=== PATIENT | female | born 1955 | race Caucasian/White ===

== ENCOUNTER 2023-05-13 13:33 | Outpatient (OUT) | payer MEDICARE, SELFPAY ==
--- NOTE | 2023-05-13 13:36 | MM_ITS ---
Patient Name: LUIS CLEVELAND MR#: [id number] : 1955 Exam Date: 05/13/2023 Ordering Doctor: DR Ton Wheeler . RADIOLOGY REPORT PROCEDURE: MM TOMOSYNTHESIS SCREENING BI COMPARISON: MG MAMM SCREEN 3D KANE CAD, 05/07/2022. MG MAMM SCREEN 3D KANE CAD, 03/17/2021. MG MAMM SCREEN KANE W CAD, 11/12/2019. MG MAMM KANE SCRN W CAD DIG, 01/15/2013. INDICATIONS: screening Calculator Name NCI Breast Cancer Risk Assessment Tool 5 Year Breast Cancer Risk 1.60% Lifetime Breast Cancer Risk 5.90% Personal Breast Cancer No Personal Ovarian Cancer No Treatments None Family Cancers Mother with bladder cancer at age 83; Uncle-maternal with hodgkins cancer at age 28. LOCATION: [facility] BREAST COMPOSITION: Scattered areas fibroglandular density. FINDINGS: DIAGNOSTIC CATEGORY 2--BENIGN FINDING: RIGHT BREAST: No significant suspicious finding. Scattered benign-appearing calcifications are present. No significant change has occurred. LEFT BREAST: No significant suspicious finding. Scattered benign-appearing calcifications are present. No significant change has occurred. RECOMMENDATIONS: ROUTINE MAMMOGRAM AND CLINICAL EVALUATION IN 12 MONTHS. PLEASE NOTE: A NORMAL MAMMOGRAM DOES NOT EXCLUDE THE POSSIBILITY OF BREAST CANCER. A CLINICALLY SUSPICIOUS PALPABLE LUMP SHOULD BE BIOPSIED. Dictated by: Nci Khan M.D. on 05/13/2023 at 14:23 Approved by: Nic Khan M.D. on 05/13/2023 at 14:28
== END 2023-05-13 13:34 | disposition home or self-care (01) ==
LOC: MAMMO 13:33
PROVIDERS: PCP Internal Medicine; Visit Provider Obstetrics & Gynecology
DX: Z12.31 Encounter for screening mammogram for malignant neoplasm of breast (principal); Z80.52 Family history of malignant neoplasm of bladder; Z80.7 Family history of other malignant neoplasms of lymphoid, hematopoietic and related tissues
CPT/HCPCS: 77063; 77067

== ENCOUNTER 2023-08-29 21:04 | Outpatient (REF) | payer MEDICARE, SELFPAY ==
--- OUTSIDE RECORDS SUMMARY | 2023-08-29 21:08 | XMS_ITS | CCD ---
Author Organization [facility] Care Team Providers Care Head Swamper Name Role Phone KINJAL TRAN (MIKY) Unavailable Unavaila ble KINJAL TRAN (MIKY) Unavailable Unavaila ble Unlisted, Physician Attending Unavailable Unlisted, Physician Admitting Unavailable NELLA FINE, MD TELLO LYONS Consulting Unav ailable NELLA FINE, MD TELLO LYONS Primary Care Unav ailable Ashutosh Juarez Unavailable Ashutosh Juarez Attending Unavailable Ashutosh Juarez Admitting Unavailable Tello Triplett Primary Care Unavailable Ashutosh Juarez Attending Unavailable Ashutosh Juarez Admitting Unavailable Tello Triplett Primary Care Unavailable Tello Triplett Primary Care Unavailable Ashutosh Juarez Admitting Unavailable Ashutosh Juarez Attending Unavailable SABRA, Rick Restrepo Attending Unavailable NILRick Claire Attending Unavailable Jerrod RUBI Referring Unavailable HEMMER, DR ISABELLE Ba Admitting Unavailable HEMMER, DR ISABELLE Ba Attending Unavailable NELLA, DR LOPEZ Primary Care Unavailable OLIEBKELLY, DR DARLYN Restrepo Consulting Unavailable HEMMER, DR ISABELLE Ba Consulting Unavailable KARASIK ., DR ELDER Admitting Unavailabl e KARASIK ., DR ELDER Consulting Unavailabl e KARASIK ., DR ELDER Attending Unavailabl e NELLA, DR LOPEZ Primary Care Unavailable Juno Whatley Consulting Unavailable ZIEBKELLY, DR DARLYN Restrepo Consulting Unavailable NELLA, DR LOPEZ Admitting Unavailable NELLA, DR LOPEZ Primary Care Unavailable NELLA, DR LOPEZ Consulting Unavailable NELLA, DR LOPEZ Attending Unavailable ZIEBKELLY, DR DARLYN Restrepo Consulting Unavailable KARASIKaela ., DR ELDER Admitting Unavailabl e KARASIK ., DR ELDER Consulting Unavailabl e KARASIK ., DR ELDER Attending Unavailabl e NELLA, DR LEEEL Primary Care Unavailable Tello Triplett MD Primary Care Provider Tello Triplett MD Unavailable TELLO TRIPLETT Attending Unavailable SURESH JAIMES Attending Unavailable TELLO TRIPLETT Attending Unavailable SURESH JAIMES Attending Unavailable TELLO TRIPLETT Attending Unavailable Medications Current Medications Medication Drug Class(es) Dates Sig (Normalized) Sig (Original) acetaminophen 325 mg / HYDROcodone bitartrate 10 mg oral tablet (10 sources) Opioid Agonist Start: 05-11-2023 End: 05-26-2023 take 1 tablet by mouth every six hours for pain HYDROcodone-acetami nophen (Bulan) 10-325 MG tablet Indications: Lumbar disc disease with radiculopathy Take 1 tablet by mouth every 6 (six) hours if needed for severe pain for up to 15 days 60 tablet 0 05/11/2023 05/26/2023 Active HYDROcodone-Acet aminophen 5-325 MG (Schedule II Drug) (Prior Auth#:[id number]) Oral for 7 Active alendronic acid 35 mg oral tablet (5 sources) Bisphosphonate Start: 04-08-2023 alendronate (F osamax) 35 MG tablet Indications: Asymptomatic menopausal state Take one pill weekly 4 tablet 3 04/08/2023 Active atorvastatin 20 mg oral tablet (5 sources) HMG-CoA Reductase Inhibitor Start: 12-20-2022 atorvastatin (Lipito r) 20 MG tablet Indications: Mixed hyperlipidemia (CMS/HCC) TAKE 1 TABLET DAILY 90 tablet 3 12/20/2022 Active FLUoxetine 20 mg oral capsule (11 sources) Serotonin Reuptake Inhibitor Start: 12-20-2022 FLUoxetine (PROzac) 20 MG capsule Indications: Major depressive disorder with current active episode, unspecified depression episode severity, unspecified whether recurrent (CMS/HCC) TAKE 2 CAPSULES DAILY 180 capsule 3 12/20/2022 Active FLUoxetine HCl 2 0 MG (Prior Auth#:[id number]) Oral for 90 Active ketoconazole 200 mg oral tablet (6 sources) Azole Antifungal take 1 tablet by mouth every twenty-four hours Ketoconazole 200 MG 1 tablet Orally Once a day Active nitroglycerin 0.4 mg sublingual tablet (11 sources) Nitrate Vasodilator Start: 020 nitroglycerin (Nitrostat) 0.[address] 0.4 mg under the tongue every 5 (five) minutes if needed for chest pain. 0 05/23/2019 Active Nitroglycerin 0. 4 MG as directed Sublingual Not-Taking pantoprazole 40 mg delayed release oral tablet (11 sources) Proton Pump Inhibitor Start: 09-01-2022 pantoprazole (ProtoNix) 40 MG EC tablet Indications: Abnormal intestinal absorption (CMS/HCC) TAKE 1 TABLET DAILY 90 tablet 3 09/01/2022 Active Pantoprazole Sod ium 40 MG (Prior Auth#:[id number]) Oral for 90 Active potassium chloride 10 meq extended release oral tablet (11 sources) take 1 tablet by mouth in the morning potassium chloride CR (Klor-Con) 10 MEQ ER tablet Take 10 mEq by mouth in the morning and 10 mEq before bedtime. 0 Active tiZANidine 4 mg oral tablet (5 sources) Central alpha-2 Adrenergic Agonist Start: take 1 tablet by mouth in the morning tiZANidine (Zanaflex) 4 MG tablet Take 4 mg by mouth in the morning and 4 mg before bedtime. 0 01/12/2022 Active topiramate 50 mg oral tablet (5 sources) Start: topiramate 50 MG tablet Indications: Benign essential hypertension (CMS/HCC) TAKE 1 TABLET TWICE A DAY 180 tablet 3 02/14/2023 Active Problems Active Problems Problem Classification Problem Date Documented Da te Episodic/Chronic Anxiety disorders (5 sources) Generalized anxiety disorder; Translations: [Generalized anxiety disorder] Onset: 11-02-2022 11-02-2022 Chronic Diabetes mellitus without complication (5 sources) Type 2 diabetes mellitus without complication; Translations: [Type 2 diabetes mellitus without complications] Onset: 02-07-2023 02-07-2023 Chronic Disorders of lipid metabolism (10 sources) Mixed hyperlipidemia; Translations: [Mixed hyperlipidemia] Onset: 11-02-2022 Resolved: 02-07-2023 11-02-2022 Chronic Diverticulosis and diverticulitis (5 sources) Diverticulum of large intestine without hemorrhage; Translations: [Diverticulosis of large intestine without perforation or abscess without bleeding] Onset: 11-02-2022 11-02-2022 Chronic Essential hypertension (7 sources) Benign essential hypertension; Translations: [Essential (primary) hypertension] Onset: 11-02-2022 3 Chronic Genitourinary symptoms and ill-defined conditions (5 sources) Urge incontinence of urine; Translations: [Urge incontinence] Onset: 11-02-2022 11-02-2022 Chronic Osteoarthritis (10 sources) Arthritis; Translations: [Unspecified osteoarthritis, unspecified site] Onset: 11-02-2022 11-02-2022 Chronic Other acquired deformities (6 sources) Lumbar spondylolisthesis; Translations: [Spondylolisthesis, lumbar region] Episodic Other bone disease and musculoskeletal deformities (1 source) Other specified disorders of bone density and structure, unspecified site; Translations: [OTH D/O BONE DEN STRUCT UNS SITE] Onset: 05-14-2022 Episodic Other connective tissue disease (2 sources) Tendinitis of right rotator cuff; Translations: [Other shoulder lesions, right shoulder] 05-12-2023 Episodic Other ear and sense organ disorders (5 sources) Otitis externa; Translations: [Unspecified otitis externa, unspecified ear] Onset: 11-02-2022 11-02-2022 Chronic Other gastrointestinal disorders (5 sources) Abnormal intestinal absorption; Translations: [Intestinal malabsorption, unspecified] Onset: 09-01-2022 09-01-2022 Chronic Other lower respiratory disease (4 sources) Pleurodynia; Translations: [PLEURODYNIA] Onset: 08-04-2022 Episodic Other nervous system disorders (5 sources) Chronic pain; Translations: [Other chronic pain] Onset: 11-02-2022 11-02-2022 Chronic Other nutritional; endocrine; and metabolic disorders (5 sources) Morbid obesity; Translations: [Morbid (severe) obesity due to excess calories] Onset: 11-02-2022 11-02-2022 Chronic Other upper respiratory infections (5 sources) Sinusitis; Translations: [Chronic sinusitis, unspecified] Onset: 11-02-2022 11-02-2022 Chronic Residual codes; unclassified (5 sources) Obstructive sleep apnea syndrome; Translations: [Obstructive sleep apnea (adult) (pediatric)] Onset: 11-02-2022 11-02-2022 Chronic Residual codes; unclassified (5 sources) Asymptomatic menopausal state; Translations: [ASYMPTOMATIC MENOPAUSAL STATE] Onset: 04-10-2021 Resolved: 04-10-2021 Episodic Residual codes; unclassified (1 source) Family history of other malignant neoplasms of lymphoid, hematopoietic and related tissues; Translations: [FAM HX OTH MAL LEONIDAS LYMPH HEMATPOETC] Onset: 05-14-2022 Episodic Residual codes; unclassified (1 source) Family history of malignant neoplasm of bladder; Translations: [FAM HX MALIGNANT NEOPLASM BLADDER] Onset: 05-14-2022 Episodic Spondylosis; intervertebral disc disorders; other back problems (7 sources) Degeneration of lumbosacral intervertebral disc; Translations: [Other intervertebral disc degeneration, lumbosacral region] Onset: 11-02-2022 11-02-2022 Chronic Spondylosis; intervertebral disc disorders; other back problems (12 sources) Spinal stenosis, lumbar region with neurogenic claudication; Translations: [Lumbar disc prolapse with radiculopathy] Onset: 05-14-2021 Resolved: 09-08-2021 Episodic Unclassified (1 source) Unknown / UNK(Unknown) Onset: 01-14-2017 Unclassified (1 source) M48.062 - Spinal stenosis, lumbar region with neurogenic claudication; Translations: [M48.062 - Spinal stenosis, lumbar region with neurogenic claudication] Onset: 06-08-2021 Unclassified (1 source) M54.50 - Low back pain, unspecified; Translations: [M54.50 - Low back pain, unspecified] Onset: 06-08-2021 Unclassified (1 source) Z01.812 - Encounter for preprocedural laboratory examination; Translations: [Z01.812 - Encounter for preprocedural laboratory examination] Onset: 06-04-2021 Viral infection (4 sources) COVID-19; Translations: [COVID-19] Onset: 01-12-2022 Past or Other Problems Problem Classification Problem Date Documented Da te Episodic/Chronic Benign neoplasm of uterus (5 sources) Uterine leiomyoma; Translations: [Leiomyoma of uterus, unspecified] Onset: 11-02-2022 11-02-2022 Episodic Diabetes mellitus without complication (5 sources) Prediabetes; Translations: [Prediabetes] Onset: 11-02-2022 Resolved: 02-07-2023 02-07-2023 Episodic Fluid and electrolyte disorders (5 sources) Hypokalemia; Translations: [Hypokalemia] Onset: 11-02-2022 11-02-2022 Episodic Genitourinary symptoms and ill-defined conditions (10 sources) Brooke hematuria; Translations: [Gross hematuria] Onset: 11-02-2022 11-02-2022 Episodic Immunizations and screening for infectious disease (1 source) Encounter for screening for human papillomavirus (HPV); Translations: [ENC SCREENING HUMAN PAPILLOMAVIRUS] Onset: 04-21-2022 Episodic Mycoses (5 sources) Pityriasis versicolor; Translations: [Pityriasis versicolor] Onset: 11-02-2022 11-02-2022 Episodic Nonspecific chest pain (1 source) Other chest pain; Translations: [OTHER CHEST PAIN] Onset: 01-15-2022 Episodic Other acquired deformities (3 sources) Spondylolisthesis, lumbar region; Translations: [M43.16 - Spondylolisthesis, lumbar region] Onset: 04-10-2021 Resolved: 05-14-2021 Episodic Other gastrointestinal disorders (5 sources) Disorder of abdomen; Translations: [Peritoneal adhesions (postprocedural) (postinfection)] Onset: 11-02-2022 11-02-2022 Episodic Other nervous system disorders (5 sources) Cerebrospinal fluid leak; Translations: [CSF leak] Onset: 11-02-2022 11-02-2022 Episodic Other screening for suspected conditions (not mental disorders or infectious disease) (11 sources) Encounter for screening for osteoporosis; Translations: [Encounter for screening mammogram for malignant neoplasm of breast] Onset: 04-19-2022 Episodic Other upper respiratory disease (5 sources) Perforation of nasal septum; Translations: [Other specified disorders of nose and nasal sinuses] Onset: 11-02-2022 11-02-2022 Episodic Results Test Name Value Interpretation Reference Range Facility XR RIBS RT PA Alberto 3 XR RIBS RT PA CH EXAMINATION: XR RIBS RT PA CH HISTORY: Pleuritic pain ; lower anterior lateral right rib pain for 2 weeks; no known injury COMPARISON: XR chest 01/12/2022 6 FINDINGS: LUNGS: No significant pulmonary parenchymal abnormalities. PLEURA: No pneumothorax, effusion, or pleural thickening. MEDIASTINUM: No visible mass or adenopathy. CARDIAC: No cardiomegaly or cardiac silhouette abnormality. RIBS: Normal. No significant arthropathy or acute abnormality. OTHER: Negative. IMPRESSION: 1. No acute cardiopulmonary process 2. No appreciable rib abnormality. Electronically authenticated by: DARLYN CLEMONS Date: 2022-08-05 07:20 Normal [facility] Physician Referralon 023 Physician Referral [phone] [id number] D:127 Normal [facility] MG MAMM SCREEN 3D KANE CADon 05-07-2022 MG MAMM SCREEN 3D KANE CAD Patient: LUIS BLOCK Exam Date: 05/07/2022 : 1955 Gender:F Ordering : DR JERROD RUBI . Admission #: [id number] Family : Order #: [id number] CLICK HERE TO VIEW EXAM RADIOLOGY REPORT PROCEDURE: MAMMOGRAM SCREENING 3D BILATERAL CAD COMPARISON: MG MAMM SCREEN 3D KANE CAD, 03/17/2021. INDICATIONS: Screening mammography Calculator Name NCI Breast Cancer Risk Assessment Tool 5 Year Breast Cancer Risk 1.60% Lifetime Breast Cancer Risk 6.20% Personal Breast Cancer No Personal Ovarian Cancer No Treatments None Family Cancers Mother with bladder cancer at age 83; Uncle-maternal with hodgkins cancer at age 28. LOCATION: [facility] BREAST COMPOSITION: Scattered areas fibroglandular density. FINDINGS: DIAGNOSTIC CATEGORY 2--BENIGN FINDING. NO CHANGE FROM COMPARISON. Scattered benign-appearing calcifications are present. Scattered benign-appearing lymph nodes are present. RIGHT BREAST: No significant suspicious finding. LEFT BREAST: No significant suspicious finding. RECOMMENDATIONS: ROUTINE MAMMOGRAM AND CLINICAL EVALUATION IN 12 MONTHS. PLEASE NOTE: A NORMAL MAMMOGRAM DOES NOT EXCLUDE THE POSSIBILITY OF BREAST CANCER. A CLINICALLY SUSPICIOUS PALPABLE LUMP SHOULD BE BIOPSIED. Dictated by: Juno Whatley MD on 05/10/2022 at 07:42 Approved by: Juno Whatley MD on 05/10/2022 at 07:44 Normal [facility] XR DEXA BONE DENSITYon 05-07 XR DEXA BONE DENSITY EXAMINATION: XR DEXA BONE DENSITY, 05/07/2022 1:02 PM EST HISTORY: Screening for osteoporosis COMPARISON: DEXA bone densitometry 12/21/2019 TECHNIQUE: Dual-energy X-ray absorptiometry (DEXA) bone density study performed for the axial skeleton. FINDINGS: SPINE ANALYSIS: Average bone mineral density is 1.422 g/cm2. T-score (standard deviation relative to young adult mean): 1.8 . -2.3% change since prior study. HIP ANALYSIS: Lowest bone mineral density is within the right femoral neck, 0.810 g/cm2. T-score (standard deviation relative to young adult mean): -1.6 . -3.7% change since prior study. IMPRESSION: [employer] Classification: Osteopenia - Moderate Fracture Risk Electronically authenticated by: DARLYN CLEMONS Date: 2022-05-07 13:56 Normal [facility] PAP ACOG PANEL 2: 30 to 65on 04-23-2022 . . Normal [facility] Comment on above: Result Comment: Perf ormed at: WB Performed By: #### [id number] #### [facility] [address] [address] [address] May Syed Age Gdln ACOG Testing 30-65 [facility] Comment on above: Performed By: #### [id number] #### [facility] [address] [address] [address] May Syed DIAGNOSIS: Comment Normal [facility] Comment on above: Result Comment: NEGA TIVE FOR INTRAEPITHELIAL LESION OR MALIGNANCY. CELLULAR CHANGES ASSOCIATED WITH ATROPHY ARE PRESENT. Performed at: WB Performed By: #### [id number] #### [facility] [address] [address] [address] May Syed HPV Aptima Negative Normal Negative [facility] Comment on above: Result Comment: This nucleic acid amplification test detects fourteen high-risk HPV types (16,18,31,33,35,39,45,51,52,56,58,59,66,68) without differentiation. Performed at: =G Performed By: #### 4 [id number] #### [facility] [address] [address] [address] May Syed HPV Genotype Reflex Comment Normal [facility] Comment on above: Result Comment: Crit eria not met, HPV Genotype not performed. Performed at: WB Performed By: #### [id number] #### [facility] [address] [address] [address] May Syed Methodology: Comment Normal [facility] Comment on above: Result Comment: This liquid based ThinPrep(R) pap test was screened with the use of an image guided system. Performed at: WB Performed By: #### [id number] #### [facility] [address] [place] [address] Dr. May Syed Note: Comment Normal [facility] Comment on above: Result Comment: The Pap smear is a screening test designed to aid in the detection of premalignant and malignant conditions of the uterine cervix. It is not a diagnostic procedure and should not be used as the sole means of detecting cervical cancer. Both false-positive and false-negative reports do occur. . Performed at: WB Performed By: #### [id number] #### [facility] [address] [address] [address] May Syed Performed by: Comment Normal [facility] Comment on above: Result Comment: Aniyah Monk, Drying Can Worker (ASCP) Performed at: WB Performed By: #### 4 [id number] #### [facility] [address] [place] [address] Dr. May Syed Specimen adequacy: Comment Normal [facility] Comment on above: Result Comment: Sati sfactory for evaluation. Endocervical component may not be distinguished in cases of atrophy. Performed at: WB Performed By: #### [id number] #### [facility] [address] [place] [address] Dr. May Syed Physician Referralon 023 Physician Referral [phone] [id number] D:127 Normal [facility] Glucose Poct Glucometerson 0 06-09-2021 Commemt1 Glu2: Cleaned Meter Normal [facility] Comment on above: Result Comment: PERF ORMED BY: [facility] [address] [place] [address] PATHOLOGIST SPORTS COMPLEX ATTENDANT MARCUS VILLALOBOS M.D. Performed By: #### G LULS #### Point of Care testing , Glucose [Mass/Vol] 154 mg/dL Normal [facility] Comment on above: Result Comment: [place] om Glucose Reference Range is dependent on time and content of last meal. Glucose of more than 200 mg/dL in a nonstressed, ambulatory subject supports the diagnosis of Diabetes Mellitus. Performed By: #### G LULS #### Point of Care testing , Glucose [Mass/Vol] 135 mg/dL Normal [facility] Comment on above: Result Comment: [place] om Glucose Reference Range is dependent on time and content of last meal. Glucose of more than 200 mg/dL in a nonstressed, ambulatory subject supports the diagnosis of Diabetes Mellitus. PERFORMED BY: [address] [place] [address] PATHOLOGIST SPORTS COMPLEX ATTENDANT MARCUS VILLALOBOS M.D. Performed By: #### G CODIE #### Point of Care testing , Glucose Poct Glucometerson 0 06-08-2021 Glucose [Mass/Vol] 150 mg/dL Normal [facility] Comment on above: Result Comment: [place] om Glucose Reference Range is dependent on time and content of last meal. Glucose of more than 200 mg/dL in a nonstressed, ambulatory subject supports the diagnosis of Diabetes Mellitus. PERFORMED BY: [address] [place] [address] PATHOLOGIST SPORTS COMPLEX ATTENDANT MARCUS VILLALOBOS M.D. Performed By: #### G CODIE #### Point of Care testing , Glucose [Mass/Vol] 152 mg/dL Normal [facility] Comment on above: Result Comment: [place] om Glucose Reference Range is dependent on time and content of last meal. Glucose of more than 200 mg/dL in a nonstressed, ambulatory subject supports the diagnosis of Diabetes Mellitus. PERFORMED BY: [address] [place] [address] PATHOLOGIST SPORTS COMPLEX ATTENDANT MARCUS VILLALOBOS M.D. Performed By: #### G LULS #### Point of Care testing , Cezar 06-08-2021 L --- Specimen: [id number] Received: 06/08/21 Status: CANDICE Berry Num: [id number] Spec Type: Surgical Subm Dr: Ashutosh Juarez MD Tissues: A Disc - Intervertebral/Lumbar/C ervical (LUMBAR) Procedures: HE Stain, Gross/Micro L3 Patient Age/Sex Location Account Attending Physician Luis Block 65/F 4N [id number] Ashutosh Juarez MD SPEC NUM: [id number] RECD: 06/08/21 STATUS: CANDICE BERRY NUM: [id number] ELMO: 06/08/21- DR: Ashutosh Juarez MD ENTERED: 06/08/[address] [facility] DR: OLMAN TYPE: Surgical DEPT: S ORDERED: HE Stain, Gross/Micro L3 ORDERED: HE Stain, Gross/Micro L3 Pathological Diagnosis Lumbar disc, L2-L3, discectomy: - Fragments of fibrocartilaginous tissue and scant bone with focal chronic inflammation. Clinical Information L2-L3 stenosis Gross Description Received in formalin labeled with the patient's name, number and lumbar disc is a 2.5 x 1.5 x 0.5 cm aggregate of urena-pink, rubbery and ragged fibrous tissue. Entirely submitted in one cassette labeled A1. Type of Fixative: 10% Neutral Buffered Formalin (ANUPAM/YKari) Microscopic Description One glass slide with H E stained material has been examined. The microscopic findings support the above pathologic diagnosis. CPT Codes 74707 Specimen: [id number] Received: 06/08/21 Status: CANDICE Berry Num: [id number] Spec Type: Surgical Subm Dr: Ashutosh Juarez MD Tissues: A Disc - Intervertebral/Lumbar/C ervical (LUMBAR) Procedures: HE Stain, Gross/Micro L3 Patient: Luis Block [id number] (Continued) Signed (signature on file) Dinorah Augustin MD 06/09/21 1138 [facility] XR lumbar spine 1Von 022 XR lumbar spine 1V [facility] [place] [address] XRay Report Signed Patient: Luis Block MR#: [id number] : 1955 Acct:[id number] Age/Sex: 65 / F ADM Date: 06/08/21 Loc: [place] Room: Type: [facility] Attending Dr: Ashutosh Juarez MD Ordering Provider: Ashutosh Juarez MD Date of Service: 06/08/21 XR/XR lumbar spine 1V: . Copies to: Ashutosh Juarez MD Intraoperative study. Reason for exam: Lumbar decompression L2-L3. FINDINGS: One image was obtained by the referring service. No radiologist was present at time of procedure. A total of 45 seconds of fluoroscopic time was utilized. XR/XR lumbar spine 1V Impression: Intraoperative study. Impression dictated by: Devin Hermosillo Jr., D.OErin06/08/2021 10:48 AM Dictation Location: [place] [address] Transcribed By: [facility] 06/08/21 104 Dictated By: Devin Hermosillo Jr, DO 06/08/21 1047 Signed By: 06/08/21 104 [facility] SARS-CoV-2 (COVID-19) RNA ANGEL+probe Ql (Unsp spec) Negative Normal Negative [facility] Comment on above: Order Comment: Healt hcare Worker?: N Result Comment: Testing for SARS-CoV-2 by RT-PCR This test was developed and its performance characteristics determined by [employer]) and validated at the [facility]. This test has not been FDA cleared or approved. This test has been authorized by FDA under an Emergency Use Authorization (EUA). This test has been validated in accordance with the FDA's Guidance Document (Policy for Diagnostics Testing in Laboratories Certified to Perform High Complexity Testing under CLIA prior to Emergency Use Authorization for Coronavirus Disease-2019 during the Public Health Emergency) issued on June 28, 2019. This test is only authorized for the duration of time the declaration that circumstances exist justifying the authorization of the emergency use of in vitro diagnostic tests for detection of SARS-CoV-2 virus and/or diagnosis of COVID-19 infection under section 564(b)(1) of the Act, 21 U.S.C. 360bbb-3(b)(1), unless the authorization is terminated or revoked sooner. PERFORMED BY: [place] [address] PATHOLOGIST SPORTS COMPLEX ATTENDANT MARCUS VILLALOBOS M.D. Performed By: #### C OVID 19 [facility] #### [address] Basic Metabolic Panelon 04-29 Calcium [Mass/Vol] 9.2 mg/dL Normal 8.2-10.2 [facility] Comment on above: Result Comment: PERF ORMED BY: [place] [address] PATHOLOGIST SPORTS COMPLEX ATTENDANT MARCUS VILLALOBOS M.D. Performed By: #### C BC, BMP #### [place] [address] [place] Chloride [Moles/Vol] 110 mmol/L Normal 95-114 [facility] Comment on above: Performed By: #### C BC, BMP #### [facility] [address] [id number] [facility] CO2 [Moles/Vol] 22.9 mmol/L Normal 22.0-30.0 [facility] Comment on above: Performed By: #### C BC, BMP #### [address] Creatinine [Mass/Vol] 0.69 mg/dL Normal 0.44-1.03 [facility] Comment on above: Performed By: #### C BC, BMP #### [address] Estimated GFR ( Nahed > 60 Normal [facility] Comment on above: Result Comment: GFR estimated reference range: According to KDOQI guidelines, <60 ml/min/1.73m2 is sufficient to diagnose a patient with chronic kidney disease. Performed By: #### C BC, BMP #### [address] Estimated GFR (Non- Am > 60 Normal [facility] Comment on above: Performed By: #### C BC, BMP #### [address] Glucose [Mass/Vol] 75 mg/dL Normal 70-100 [facility] Comment on above: Result Comment: [place] om Glucose Reference Range is dependent on time and content of last meal. Glucose of more than 200 mg/dL in a nonstressed, ambulatory subject supports the diagnosis of Diabetes Mellitus. ADA recommended reference range Performed By: #### C BC, BMP #### [address] Potassium [Moles/Vol] 4.1 mmol/L Normal 3.5-5.1 [facility] Comment on above: Performed By: #### C BC, BMP #### [address] Sodium [Moles/Vol] 140 mmol/L Normal 136-146 [facility] Comment on above: Performed By: #### C BC, BMP #### [address] Urea nitrogen [Mass/Vol] 18 mg/dL Normal 9-23 [facility] Comment on above: Performed By: #### C BC, BMP #### [address] Complete Blood Count Auto Di ffon 05-25-2021 Basophils (Bld) [#/Vol] 0.0 10*3/uL Normal 0.0-0.2 [facility] Comment on above: Result Comment: PERF ORMED BY: [place] [address] PATHOLOGIST SPORTS COMPLEX ATTENDANT MARCUS VILLALOBOS M.D. Performed By: #### C BC, BMP #### [address] Basophils/100 WBC (Bld) 0.6 % Normal . [facility] Comment on above: Performed By: #### C BC, BMP #### [address] Eosinophils (Bld) [#/Vol] 0.2 10*3/uL Normal 0.0-0.45 [facility] Comment on above: Performed By: #### C BC, BMP #### [address] Eosinophils/100 WBC (Bld) 2.7 % Normal . [facility] Comment on above: Performed By: #### C BC, BMP #### [address] Erythrocyte distribution width (RBC) [Ratio] 13.6 % Normal 11.9-15.3 [facility] Comment on above: Performed By: #### C BC, BMP #### [address] Hematocrit (Bld) [Volume fraction] 37.0 % Normal 34.0-46.4 [facility] Comment on above: Performed By: #### C BC, BMP #### [address] Hemoglobin (Bld) [Mass/Vol] 12.6 g/dL Normal 11.8-15.4 [facility] Comment on above: Performed By: #### C BC, BMP #### [address] Lymphocytes (Bld) [#/Vol] 2.1 10*3/uL Normal 1.00-4.8 [facility] Comment on above: Performed By: #### C BC, BMP #### [facility] [address] [place] [address] [place] Lymphocytes/100 WBC (Bld) 34.3 % Normal . [facility] Comment on above: Performed By: #### C BC, BMP #### [facility] [address] MCH (RBC) [Entitic mass] 30.1 pg Normal 24.7-34.3 [facility] Comment on above: Performed By: #### C BC, BMP #### [facility] [address] MCV (RBC) [Entitic vol] 88.1 fL Normal 80-100 [facility] Comment on above: Performed By: #### C BC, BMP #### [facility] [address] Mean Corpuscular HGB Conc 34.1 g/dL Normal 32.0-35.0 [facility] Comment on above: Performed By: #### C BC, BMP #### [facility] [address] [place] [address] [place] Monocytes (Bld) [#/Vol] 0.6 10*3/uL Normal 0.0-0.8 [facility] Comment on above: Performed By: #### C BC, BMP #### [facility] [address] [place] [address] [place] Monocytes/100 WBC (Bld) 10.4 % Normal . [facility] Comment on above: Performed By: #### C BC, BMP #### [facility] [address] [place] [address] [place] Neutrophils (Bld) [#/Vol] 3.2 10*3/uL Normal 1.8-7.7 [facility] Comment on above: Performed By: #### C BC, BMP #### [facility] [address] Neutrophils/100 WBC (Bld) 52.0 % Normal . [facility] Comment on above: Performed By: #### C BC, BMP #### [facility] [address] [place] [address] [place] Nucleated RBC/100 WBC (Bld) [Ratio] 0.2 % Normal 0-0.5 [facility] Comment on above: Performed By: #### C BC, BMP #### [facility] [address] Platelet mean volume (Bld) [Entitic vol] 9.7 fL Normal 6.3-10.7 [facility] Comment on above: Performed By: #### C BC, BMP #### [facility] [address] [place] [address] [place] Platelets (Bld) [#/Vol] 182 10*3/uL Normal 150-450 [facility] Comment on above: Performed By: #### C BC, BMP #### [facility] [address] [place] [address] [place] RBC (Bld) [#/Vol] 4.20 10*6/uL Normal 3.60-5.00 [facility] Comment on above: Performed By: #### C BC, BMP #### [facility] [address] [place] [address] [place] WBC (Bld) [#/Vol] 6.1 10*3/uL Normal 4.5-11.0 [facility] Comment on above: Performed By: #### C BC, BMP #### [facility] [address] ECG 12 lead ECGon 05-25-2021 ECG 12 lead ECG [facility] [address] [place] [address] [place] [address] Electrocardiograph Report Signed Patient: Luis Block MR#: [id number] : 1955 Acct:[id number] Age/Sex: 65 / F ADM Date: 05/25/21 Loc: PS Room: Type: [facility] Attending Dr: Ashutosh Juarez MD Ordering Provider: Ashutosh Juarez MD Date of Service: 05/25/21 ECG/ECG 12 lead ECG: surgery 06-08-2021 Copies to: Test Reason : Blood Pressure : / mmHG Vent. Rate : 072 BPM Atrial Rate : 072 BPM P-R Int : 154 ms QRS Dur : 086 ms QT Int : 410 ms P-R-T Axes : 021 002 045 degrees QTc Int : 448 ms Normal sinus rhythm Minimal voltage criteria for LVH, may be normal variant Possible Lateral infarct , age undetermined Abnormal ECG No previous ECGs available Confirmed by KENDAL GODINEZ MD ([id number]) on 05/26/2021 10:32:11 AM Referred By: Darlene JUAREZ Electronically Signed By:KENDAL GODINEZ MD Transcribed By: MUS Signed By Kendal Godinez MD 0 05/26/21 1032 Normal [facility] MRI Spine Lumbar w/o Contras ton 02-12-2021 MRI Spine Lumbar w/o Contrast MRI of the lumbar spine without contrast from 02/11/2021. Indication: Back pain. Technique: Sagittal and axial T1 and T2-weighted images and Sagittal STIR . Comparison: None. Findings: The vertebral body heights are maintained. Bone marrow signal changes at the endplates, likely degenerative.. The tip of the conus medullaris is at T12-L1 and signal intensity of the included spinal cord is normal. . Individual levels: L1-L2: Mild endplate degenerative changes and moderate bilateral facet arthropathy. L2-L3: Moderate to large central and left paracentral disc protrusion superimposed on mild disc bulge, severe bilateral facet arthropathy and ligamentum flavum hypertrophy. Mild bilateral neural foraminal narrowing. Severe constriction of the bilateral lateral recesses. Severe spinal canal stenosis with compression of the cauda equina on the bilateral L3 nerve roots, worse on the left. L3-L4: Disc desiccation and moderate endplate degenerative changes. Moderate right-sided facet arthropathy. Moderate bilateral neural foraminal narrowing. Moderate stenosis of the right lateral recess. Mild mass effect on the right-sided L4 nerve root. L4-L5: Mild disc bulge. Severe bilateral facet arthropathy and ligamentum flavum hypertrophy. Moderate bilateral neural foraminal narrowing.. L5-S1: Mild anterolisthesis of L5 on S1 secondary to severe bilateral facet arthropathy. Disc desiccation and moderate endplate degenerative changes. Mild left-sided neural foraminal narrowing. Left-sided renal cyst. Perineural cysts in the sacral spinal canal. IMPRESSION: 1. Severe spinal canal stenosis with compression of the cauda equina at L2-L3, secondary to large central and left paracentral disc protrusion, severe bilateral facet arthropathy and ligamentum flavum hypertrophy. 2. Severe multilevel facet arthropathy and moderate disc and endplate changes resulting in varying degrees of neural foraminal narrowing and spinal canal stenosis in the other levels, as described above. Final Dictated by: Jacey Moreno MD Dictated DT/TM: 02/12/2021 9:55 am Signed by: Jacey Moreno MD Signed (Electronic Signature): 02/12/2021 10:07 am (If Report Is Signed, Electronically Signed in Other Vendor System) Normal [facility] XR Spine Lumbosacral Complet kenya 02-12-2021 XR Spine Lumbosacral Complete Lumbar spine radiographs on 02/11/2021 Clinical History: Back pain Comparison: Lumbar spine MRI on 02/11/2021 Findings: 7 views of the lumbar spine were obtained. The vertebral body heights are maintained. Mild anterolisthesis of L5 on S1 secondary to facet arthropathy. No radiographic evidence of acute fracture or dislocation. Moderate multilevel endplate degenerative changes and moderate to severe facet arthropathy. Slightly limited range of motion on flexion and extension. Likely phleboliths in the pelvis. Impression: Moderate to severe degenerative changes of the lumbar spine without radiographic signs of instability. Final Dictated by: Jacey Moreno MD Dictated DT/TM: 02/12/2021 11:48 am Signed by: Jacey Moreno MD Signed (Electronic Signature): 02/12/2021 11:50 am (If Report Is Signed, Electronically Signed in Other Vendor System) Normal [facility] CARDIAC STRESS/REST INJE CTIONon 06-19-2019 [facility] CARDIAC STRESS/REST INJECTION Patient Name: LUIS BLOCK STUDY: MYOCARDIAL PERFUSION STRESS TEST WITH LEXISCAN Performing facility: [facility], [address] [place] [address], [address], [address] Provider: EMELY WORLEY PCP: Dr. Darlene TRIPLETT Supervising provider: ANTONIETA JEFFERY INDICATION: CP HISTORY: Gender: F; Age: 63 y/o ; Height: 157.48 cm; Weight: 93.3680148 kg. High Cholesterol; CP Family HX CAD; SOB Quit smoking REMOTE years ago. COMPARISON: ACCESSION NUMBER(S): [id number]; [id number]; [id number] ORDERING CLINICIAN: ALMA DELIA WORLEY TECHNIQUE: ONE DAY protocol. Stress injection: Date:06/19/2019, 34.8 mCi of Myoview IV 20 seconds after rapid injection of Lexiscan. Rest injection: Date: 06/19/2019, 10.8 mCi of Myoview IV at rest. The patient had a rapid injection of 0.4 mg of Lexiscan IV over 10 seconds. Imaging was performed by gated tomographic technique. Reason for Lexiscan: BACK PAIN STRESS TEST DATA: Resting heart rate was 57 BPM. Resting blood pressure was 138/86 mmHg. Peak blood pressure was 132/80 mmHg. Peak heart rate was 88 BPM. TEST TERMINATED DUE TO: Protocol completed FINDINGS: STRESS TEST RESULTS: Resting electrocardiogram revealed normal sinus rhythm without ST-T changes. There were no significant ischemic ECG changes or dysrhythmias. The patient did not have chest pains/symptoms during procedure. There was a normal recovery phase. IMAGING RESULTS: Image quality was good. Rest and stress tomographic images were reviewed and revealed normal perfusion without evidence of ischemia, myocardial infarction, or left ventricular dilatation with stress. Overall left ventricular systolic function appeared to be normal without regional wall motion abnormalities. Ejection fraction was 69%. TID is 0.998 and is normal. There was no evidence of attenuation artifact. IMPRESSION: Normal Lexiscan Myoview cardiac perfusion stress test. No evidence of ischemia or myocardial infarction by perfusion imaging. Normal left ventricular systolic function, ejection fraction 69%. No previous study available for comparison. Electronically signed by: KENDAL GODINEZ MD Normal [facility] Basic Metabolic Panlon 01-14 Anion gap 13 mmol/L Normal 9-18 [facility] Comment on above: Performed By: #### C BCDIF, PT, BMP ####[facility] [place], [place] [phone] Calcium 9.9 mg/dL Normal 8.5-10.5 [facility] Comment on above: Performed By: #### C BCDIF, PT, BMP ####[place] [address] Chloride 106 mmol/L Normal 98-110 [facility] Comment on above: Performed By: #### C BCDIF, PT, BMP ####[place] [phone] CO2 25 mmol/L Normal 23-32 [facility] Comment on above: Performed By: #### C BCDIF, PT, BMP ####[place] [phone] Creatinine 0.76 mg/dL Normal 0.70-1.40 [facility] Comment on above: Performed By: #### C BCDIF, PT, BMP ####[place] [address] eGFR (non-black) mL/min/{1.73_m2} Normal >60 [facility] Comment on above: Performed By: #### C BCDIF, PT, BMP ####[place] [address] Glucose mass conc 93 mg/dL Normal 65-100 [facility] Comment on above: Performed By: #### C BCDIF, PT, BMP ####[place] [address] Potassium molar conc 3.6 mmol/L Normal 3.5-5.0 [facility] Comment on above: Performed By: #### C BCDIF, PT, BMP ####[place] [address] Sodium 144 mmol/L Normal 132-148 [facility] Comment on above: Performed By: #### C BCDIF, PT, BMP ####[place] [phone] Urea nitrogen 16 mg/dL Normal 8-25 [facility] Comment on above: Performed By: #### C BCDIF, PT, BMP ####[place] [phone] CBC and Differentialon 01-14 Abs Baso <0.03 Normal <0.11 [facility] Comment on above: Performed By: #### C BCDIF, PT, BMP ####[place] [phone] Abs [place] 0.66 k/uL Normal <0.87 [facility] Comment on above: Performed By: #### C BCDIF, PT, BMP ####[place] [address] Abs Neut 5.60 k/uL Normal 1.45-7.50 [facility] Comment on above: Performed By: #### C BCDIF, PT, BMP ####[place] [address] Basophils/100 WBC Auto (Bld) 0.1 % Normal [facility] Comment on above: Performed By: #### C BCDIF, PT, BMP ####[place] [address] DTYPE Auto Diff Normal [facility] Comment on above: Performed By: #### C BCDIF, PT, BMP ####[place] [phone] Eosinophils 0.13 10*3/uL Normal <0.46 [facility] Comment on above: Performed By: #### C BCDIF, PT, BMP ####[place] [address] Eosinophils/100 leukocytes 1.5 % Normal [facility] Comment on above: Performed By: #### C BCDIF, PT, BMP ####[place] [id number] Erythrocyte distribution width Auto Ratio (RBC) 13.2 % Normal 11.5-15.0 [facility] Comment on above: Performed By: #### C BCDIF, PT, BMP ####[place] [address] Erythrocytes (RBC) 4.26 10*6/uL Normal 3.90-5.20 [facility] Comment on above: Performed By: #### C FRANCISCO PT, BMP ####[place] [address] Hematocrit (HCT) 37.0 % Normal 36.0-46.0 [facility] Comment on above: Performed By: #### C FRANCISCO PT, BMP ####[place] [address] Hemoglobin mass conc (Bld) 12.8 g/dL Normal 11.5-15.5 [facility] Comment on above: Performed By: #### C FRANCISCO PT, BMP ####[place] [address] Lymphocytes 2.06 10*3/uL Normal 1.00-4.00 [facility] Comment on above: Performed By: #### C BCMARTIN, PT, BMP ####[place] [address] Lymphocytes/100 leukocytes 24.3 % Normal [facility] Comment on above: Performed By: #### C FRANCISCO PT, BMP ####[address] MCH 30.0 pG Normal 26.0-34.0 [facility] Comment on above: Performed By: #### C BCMARTIN, PT, BMP ####[address] MCHC mass conc (RBC) 34.6 g/dL Normal 30.5-36.0 [facility] Comment on above: Performed By: #### C BCMARTIN, PT, BMP ####[address] MCV 86.9 fL Normal 80.0-100.0 [facility] Comment on above: Performed By: #### C BCMARTIN, PT, BMP ####[phone] Monocytes/100 leukocytes 7.8 % Normal [facility] Comment on above: Performed By: #### C FRANCISCO, PT, BMP ####[address] [phone] Neutrophils/100 WBC Auto (Bld) 66.3 % Normal [facility] Comment on above: Performed By: #### C FRANCISCO PT, BMP ####[address] [phone] Platelet mean volume (PMV) 11.0 fL Normal 9.0-12.7 [facility] Comment on above: Performed By: #### C FRANCISCO PT, BMP ####[address] [phone] Platelets 171 10*3/uL Normal 150-400 [facility] Comment on above: Performed By: #### C FRANCISCO PT, BMP ####[address] [phone] WBC (Leukocytes) 8.46 10*3/uL Normal 3.70-11.00 [facility] Comment on above: Performed By: #### C FRANCISCO PT, BMP ####[address] [phone] IR LUMBAR PUNCTURE DIAGon IR LUMBAR PUNCTURE DIAG * * *Final Report* * *DATE OF EXAM: Jan 14 2017 3:38PM [facility] 7594 - IR LUMBAR PUNCTURE DIAG / REASON: ELEVATED INTRACRANIAL PRESSURE * * * * Physician Interpretation * * * * Procedure: Diagnostic Lumbar punctureIndication: The patient is a 61 years year old Female who presented with elevated intracranial pressure.Consent: The risks, benefits, treatment options, potential complications and personnel to be involved were discussed (including the risks of radiation exposure, contrast and anesthesia administration) with the patient. All questions were answered and consent was obtained. The patient indicated willingness to proceed.General:A) Medication Reconciliation: The patient's medications and allergies were reviewed in the electronic medical record and reconciled to the proposed procedure/treatment.B) Pre-Procedure Medications: Medication #1: NoneC) Positioning: The patient was placed prone on the Fluroroscopy table.D) The Lumbar dorsal soft tissues. were then sterile prepped and draped.E) Time Out: A time out was performed immediately prior to procedure start with the nursing, anesthesia and interventional team, correctly identifying the name, medical record number, procedure, anatomy (including marking of site and side), patient position, procedure consent form, relevant diagnostic and radiology test results, antibiotic administration, safety precautions, and procedure-specific equipment needs.F) Anesthesia Type: administration of local anesthesia. Local Anesthesia: 2% Buffered LidocaineG) Anesthesia Was Administered For A Total Of None.H) Patient Monitoring: Not applicable.Procedure:A) Access Site: 22 gauge spinal needle From A Paramedian Approach At The L4-L5 Level.B) Procedure Details: The spinal canal was accessed using fluoroscopic guidance. A 22-gauge spinal needle was inserted into the thecal sac. The opening pressure was 18 cm of water..C) Estimated Blood Loss: 0 mlsD) Type of Removed Specimens: CSFE) Number of Specimens: 0.Diagnostic Volume: 5 cc of CSF forwarded to the lab for analysis.CSF Color: ClearContrast:None contrast: ml ofFluoroscopic Radiation Summary:Plane A, Air Kerma: 80.0 mGyDose Area Product (DAP): 94504.9 mGy*mz4Smgdnd time: 2:36 min:secRESULTS:Post-Pro cedure: A) Conclusion: The patient was transferred to the Radiology Recovery Room in stable condition and observed for approximately 60 minutes prior to discharge.B) Significant Patient Complication: None If other, explain:C) Complications During The Procedure: None if other, explain:IMPRESSION: Status post fluoroscopic-guided lumbar punctureStaff Physician: Brooke Abbott M.D. was present for the entire procedure.Cavity Pump Operator: NoneTranscriptionist: MINAL Transcribe Date/Time: Jan 14 2017 5:55PDictated by : BROOKE ABBOTT MDThis examination was interpreted and the report reviewed and electronically signed by: BROOKE ABBOTT MD on Jan 14 2017 5:57PM [facility] IR XR FLUORO GUIDE SPINE INJ on 01-14-2017 IR XR FLUORO GUIDE SPINE INJ * * *Final Report* * *DATE OF EXAM: Jan 14 2017 3:38PM [facility]39 - IR XR FLUORO GUIDE SPINE INJ / REASON: ELEVATED INTRACRANIAL PRESSURE * * * * Physician Interpretation * * * * Procedure: Diagnostic Lumbar punctureIndication: The patient is a 61 years year old Female who presented with elevated intracranial pressure.Consent: The risks, benefits, treatment options, potential complications and personnel to be involved were discussed (including the risks of radiation exposure, contrast and anesthesia administration) with the patient. All questions were answered and consent was obtained. The patient indicated willingness to proceed.General:A) Medication Reconciliation: The patient's medications and allergies were reviewed in the electronic medical record and reconciled to the proposed procedure/treatment.B) Pre-Procedure Medications: Medication #1: NoneC) Positioning: The patient was placed prone on the Fluroroscopy table.D) The Lumbar dorsal soft tissues. were then sterile prepped and draped.E) Time Out: A time out was performed immediately prior to procedure start with the nursing, anesthesia and interventional team, correctly identifying the name, medical record number, procedure, anatomy (including marking of site and side), patient position, procedure consent form, relevant diagnostic and radiology test results, antibiotic administration, safety precautions, and procedure-specific equipment needs.F) Anesthesia Type: administration of local anesthesia. Local Anesthesia: 2% Buffered LidocaineG) Anesthesia Was Administered For A Total Of None.H) Patient Monitoring: Not applicable.Procedure:A) Access Site: 22 gauge spinal needle From A Paramedian Approach At The L4-L5 Level.B) Procedure Details: The spinal canal was accessed using fluoroscopic guidance. A 22-gauge spinal needle was inserted into the thecal sac. The opening pressure was 18 cm of water..C) Estimated Blood Loss: 0 mlsD) Type of Removed Specimens: CSFE) Number of Specimens: 0.Diagnostic Volume: 5 cc of CSF forwarded to the lab for analysis.CSF Color: ClearContrast:None contrast: ml ofFluoroscopic Radiation Summary:Plane A, Air Kerma: 80.0 mGyDose Area Product (DAP): 07216.9 mGy*va5Dycdax time: 2:36 min:secRESULTS:Post-Pro cedure: A) Conclusion: The patient was transferred to the Radiology Recovery Room in stable condition and observed for approximately 60 minutes prior to discharge.B) Significant Patient Complication: None If other, explain:C) Complications During The Procedure: None if other, explain:IMPRESSION: Status post fluoroscopic-guided lumbar punctureStaff Physician: Brooke Abbott M.D. was present for the entire procedure.Cavity Pump Operator: NoneTranscriptionist: MINAL Transcribe Date/Time: Jan 14 2017 5:55PDictated by : BROOKE ABBOTT MDThis examination was interpreted and the report reviewed and electronically signed by: BROOKE ABBOTT MD on Jan 14 2017 5:57PM EST Normal [facility] NURSING PROGon 01-14-2017 NURSING PROG HNO ID: [id number]: Dipti Melton (Rn) ASH Easonervice: RadiologyAuthor Type: Registered NurseType: Nursing Progress NoteFiled: 01/14/2017 4:31 PMNote Text:Patient s/p lumbar puncture. Band aid to back dry and intact. Patientmonitored x 1 hour post puncture. Patient denies headache, dizziness,lightheadedne ss or pain. VS taken: pulse=80, resp=16, vm=431/85 and pulseox=96% on room air. Patient ambulatory gait steady. Discharged withfamily member and has instructions. Normal [facility] Protimeon 01-14-2017 INR Coag RelTime (Bld) 1.0 {INR} Normal 0.9-1.3 [facility] Comment on above: Result Comment: Maggie min K Antagonist (VKA) Therapeutic Range: INR 2 to 3 (Target INR of 2.5)Note: For patients treated with VKA drugs, such as warfarin, the [employer] 2012 Guideline recommends a therapeutic INR range of 2 to 3 (target INR of 2.5). This recommendation includes high-risk patients with antiphospholipid syndrome with previous arterial or venous thromboembolism, current-generation mechanical or bioprosthetic aortic heart valve replacement.Note: Patients with mechanical aortic valve replacement and additional risk factors for thromboembolic events (atrial fibrillation, previous thromboembolism, LV dysfunction, hypercoagulable conditions) or an older generation mechanical AVR (i.e., ball in-Cage) or any mechanical MVR should have a INR therapeutic range of 2.5 to 3.5 (target INR of 3).Judy SUTTON, et al. Chest 2012, 141:[id number] RA, et al. [facility] 2017, 70: 252-289 Performed By: #### C CHENTEF, PT, BMP ####[facility] [place] [place], [place] [phone] PT Sec 10.1 sec Normal 9.7-13.0 [facility] [place] Comment on above: Performed By: #### C BCDIF, PT, BMP ####[place] [id number] [place], [place] [phone] Vital Signs Date Time Vital Sign Value Performing Clinician Facility 05-12-2023 12:57-0500 Body height 154.9 cm Tello Triplett MD Work Phone: [facility] 05-12-2023 12:57-0500 Body mass index (BMI) [Ratio] 34.96 kg/m2 Tello Triplett MD Work Phone: [facility] 05-12-2023 12:57-0500 Body weight 83.92 kg Tello Triplett MD Work Phone: [facility] 05-12-2023 12:57-0500 Diastolic blood pressure 70 mm[Hg] Tello Triplett MD Work Phone: [facility] 05-12-2023 12:57-0500 Heart rate 83 /min Tello Triplett MD Work Phone: [facility] 05-12-2023 12:57-0500 SaO2% (BldA) [Mass fraction] 97 % Tello Triplett MD Work Phone: [facility] 05-12-2023 12:57-0500 Systolic blood pressure 126 mm[Hg] Tello Triplett MD Work Phone: [facility] 09-08-2021 10:40-0400 Body height 156.21 cm Ashutosh Juarez [facility] [employer] Other 09-08-2021 10:40-0400 Body mass index (BMI) [Ratio] 37.55 kg/m2 Ashutosh Juarez [facility] [employer] [facility] [employer] Other 09-08-2021 10:40-0400 Body weight 91.63 kg Ashutosh Juarez [facility] [employer] Other 07-07-2021 14:00-0400 Body height 156.21 cm Ashutosh Juarez [facility] [employer] Other 07-07-2021 14:00-0400 Body mass index (BMI) [Ratio] 38.47 kg/m2 Ashutosh Juarez [facility] [employer] Other 07-07-2021 14:00-0400 Body weight 93.9 kg Ashutosh Juarez [facility] [employer] [facility] [employer] Other 05-14-2021 17:00-0500 Body height 156.21 cm Ashutosh Juarez [facility] [employer] Other 05-14-2021 17:00-0500 Body mass index (BMI) [Ratio] 38.47 kg/m2 Ashutosh Juarez [facility] [employer] Other 05-14-2021 17:00-0500 Body weight 93.9 kg Ashutosh Juarez [facility] [employer] Other 03-26-2021 16:20-0500 Body height 156.21 cm Ashutosh Juarez [facility] [employer] Other 03-26-2021 16:20-0500 Body mass index (BMI) [Ratio] 38.47 kg/m2 Ashutosh Juarez [facility] [employer] Other 03-26-2021 16:20-0500 Body weight 93.9 kg Ashutosh Juarez [facility] [employer] Other Encounters Encounter Date Encounter Type Care Provider Facility Start: 08-10-2023 End: 08-10-2023 ambulatory TELLO TRIPLETT Not Available Start: 06-07-2023 End: 06-07-2023 ambulatory SURESH JAIMES Not Available Start: 05-24-2023 End: 05-24-2023 ambulatory SURESH JAIMES Not Available Start: 05-12-2023 End: 05-12-2023 ambulatory TELLO TRIPLETT Not Available Start: 05-12-2023 Bamboo flowsheet Tello caro MD Work Phone: [facility] Start: 05-12-2023 Bamboo flowsheet Tello caro MD Work Phone: [facility] Start: 05-12-2023 End: 05-12-2023 Office outpatient visit 25 minutes Tello Triplett MD Work Phone: [facility] Comment on above: Benign essential hyp ertension (CMS/HCC) (Primary Dx); Spinal stenosis of lumbar region without neurogenic claudication; Degeneration of lumbar or lumbosacral intervertebral disc; Rotator cuff tendinitis, right Start: 05-11-2023 Refill Tello Triplett MD Work Phone: [facility] Comment on above: Lumbar disc disease with radiculopathy Start: 05-10-2023 Refping Triplett MD Work Phone: [facility] Comment on above: Lumbar disc disease with radiculopathy Start: 02-07-2023 End: 02-07-2023 ambulatory TELLO TRIPLETT Not Available Start: 08-04-2022 End: 08-05-[address] TELLO TRIPLETT Facility:[facility] Start: 05-07-2022 End: 05-08-[address] JERROD RUBI . Facility:[facility] Start: 04-20-2022 ambulatory Rick MONTAÑO Facility :[facility] Start: 04-19-2022 End: 04-19-[address] JERROD RUBI . Facility:[facility] Start: 01-12-2022 End: 01-13-[address] ISABELLE ALVARES Facility:[facility] Start: 09-08-2021 End: 09-08-2021 ambulatory Ashutosh Johnathan [facility] [employer] Other Start: 09-08-2021 Postop follow up vis it related to original px Ashutosh Juarez [facility] Start: 07-07-2021 End: 07-07-2021 ambulatory Ashutosh Juarez [facility] [employer] [facility] [employer] Other Start: 07-07-2021 Postop follow up vis it related to original px Ashutosh Juarez [facility] Start: 06-08-2021 Admission to [facility] Ashutosh Juarez [facility] Start: 06-08-2021 End: 06-09-2021 ambulatory Telloanupama Triplett [place] [employer] Other Start: 06-04-2021 End: 06-04-2021 ambulatory Ashutosh Juarez Facility:[facility] Start: 05-25-2021 End: 05-25-2021 ambulatory Ashutosh Juarez Facility:[facility] Start: 05-14-2021 End: 05-14-2021 ambulatory Ashutosh Juarez [facility] [employer] Other Start: 05-14-2021 Office outpatient vi sit 40 minutes Ashutosh Juarez [facility] Start: 04-10-2021 End: 04-10-2021 ambulatory Ashutosh Juarez [facility] [employer] Other Start: 04-10-2021 Telephone encounter Ashutosh Juarez [facility] Start: 03-26-2021 End: 03-26-2021 ambulatory Ashutosh Juarez [facility] [employer] Other Start: 03-26-2021 Follow-up encounter Ashutosh Juarez [facility] Start: 02-11-2021 End: 02-12-2021 ambulatory Physician Unlisted Facility:[facility] Start: 01-14-2017 Ambulatory KINJAL Peirce (MIKY) [facility] Procedures Date Procedure Procedure Detail Performing Clinician Start: 05-07-2022 Mammography Tello flynn MD Work Phone: Start: 08-02-2019 Echocardiography Start: 02-12-2013 Colonoscopy Tello flynn MD Work Phone: Plan of Treatment Date Care Activity Detail Author Start: 12-03-2025 Screening for malign ant neoplasm of colon [facility] Start: 02-03-2025 Glaucoma screening Diabetes: R etinopathy Screening [facility] Start: 04-05-2024 Urine screening for protein Diabetes: Urine Protein Screening [facility] Start: 02-08-2024 Medicare Annual Well ness (AWV) Medicare Annual Wellness (AWV) [facility] Start: 08-29-2023 End: 08-29-2023 Patient encounter procedure 08/29/2023 2:00 PM EDT Office Visit [facility] [address] [place] [phone] Ton Wheeler DO [address] [place] [address] [facility] Start: 08-10-2023 End: 08-10-2023 Patient encounter procedure 08/10/2023 1:15 PM EDT Office Visit [facility] [address] [facility] [address] [place] [phone] Tello Triplett MD [address] [facility] [address] [place] [address] [facility] Start: 07-05-2023 Hemoglobin A1c measurement Diabetes: Hemoglobin A1C [facility] Start: 05-12-2023 End: 05-12-2023 Patient encounter procedure [facility] Comment on above: Arrived Start: 05-07-2023 Screening for malign ant neoplasm of breast Mammogram [facility] Start: 02-12-2023 Screening for malign ant neoplasm of colon Colonoscopy [facility] Start: 1955 Screening for malign ant neoplasm of colon [facility] Immunizations Immunization Date Immunization Notes Care Provider Fa [facility] 12-28-2022 Influenza, Seasonal, Quadrivalent, Adjuvanted Tello Triplett MD Work Phone: [facility] 10-25-2022 tetanus toxoid, redu breana diphtheria toxoid, and acellular pertussis vaccine, adsorbed Tello Triplett MD Work Phone: [facility] 08-04-2022 zoster vaccine recombinant D kay Triplett MD Work Phone: [facility] 04-19-2022 zoster vaccine recombinant Darlene Triplett MD Work Phone: [facility] 02-22-2022 Influenza, High-dose Seasonal, Quadrivalent, Preservative Free Tello Triplett MD Work Phone: [facility] 02-03-2022 Pneumococcal Conjuga te PCV 20 Tello Triplett MD Work Phone: [facility] 02-01-2022 pneumococcal polysaccharide vaccine, 23 valent Tello Triplett MD Work Phone: [facility] 12-16-2020 influenza, injectabl e, quadrivalent, preservative free Tello Triplett MD Work Phone: [facility] Payers Date Payer Category Payer Medicare A[employer] MEDICARE A DVANTAGE AETNA MEDICARE REPLACEMENT [id number] 2022-Present [address] [place] [address] [id number] 2021 Self-pay 2021 Unknown [id number] 2021 Unknown 1959 Private Health Insurance [id number] 1959 Self-pay [id number] 1956 Unknown [id number] [id number]. 196 1956 Unknown [id number] 2.16.840.1.852248.3.579.2. 727 1956 Unknown [id number] 2.16.840.1.816175.3.579.2. 727 1956 Unknown [id number] 2.16.840.1.762198.3.579.2. 593 1956 Unknown [id number] 2.16.840.1.739564.3.579.2. 593 1956 Unknown [id number] 2.16.840.1.227400.3.579.2. 593 1956 Unknown [id number] 2.16.840.1.251641.3.579.2. 593 1956 Unknown [id number] 2.16.840.1.054368.3.579.2. 1259 1956 Unknown [id number] 2.16.840.1.035605.3.579.2. 1259 1956 Unknown [id number] 2.16.840.1.958173.3.579.2. 1259 1956 Unknown [id number] 2.16.840.1.659550.3.579.2. 1259 1956 Unknown [id number] 2.16.840.1.736107.3.579.2. 1259 Unknown [id number] 2.16.840.1.587436.3.579.2. 531 Unknown [id number] 2.16.840.1.024397.3.579.2. 531 Unknown [id number] [id number]. 531 Social History Date Type Detail Facility Start: 02-07-2023 End: 05-12-2023 Sex Assigned At [facility] [employer] Other Start: 11-02-2022 Tobacco smoking status [facility] Ex-smoker [facility] End: 03-28-2004 History of tobacco use Current smoker [facility] End: 03-28-2004 History of tobacco use Cigarette Smoker [facility] Start: 11-02-2022 Tobacco use and exposure Smokeless tobacco non-user [facility] Start: 02-07-2023 End: 05-12-2023 Alcohol intake Ex-drinker (finding) [facility] Start: 02-07-2023 End: 05-12-2023 History of Social function [facility] Start: 1955 Sex Assigned At Not on file N [facility] Clinical Notes 03-26-2021 to 05-12-2023 Tello Triplett MD - 05/12/2023 1:00 PM ESTTelephone Encounter - PAIGE Paris - 05/11/2023 2:11 PM ESTTelephone Encounter - PAIGE [place] - 05/11/2023 2:11 PM EST Note Date & Type Note Facility 05-12-2023 History of Presen t illness Narrative HPI Follow-up Additional comments: Pain med Results Additional comments: labs Shoulder Pain Additional comments: Pt states she has had ongoing left shoulder pain over the last few months her right shoulder has really started bothering her she has seen ortho for left shoulder in past Last edited by Tonya Phillip LPN on 05/12/2023 1:04 PM. Subjective Patient ID: Luis Block is a 67 y.o. female who presents for Follow-up (Pain med), Hypertension, Results (labs), and Shoulder Pain (Pt states she has had ongoing left shoulder pain over the last few months her right shoulder has really started bothering her she has seen ortho for left shoulder in past). Hypertension Patient is here for follow-up of elevated blood pressure. Cardiac symptoms: none. Patient denies chest pain. Cardiovascular risk factors: advanced age (older than 55 for men, 65 for women), hypertension, and obesity (BMI >= 30 kg/m2). Subjective Luis Block is a 67 y.o. female who returns for follow-up of chronic pain. Analgesia: Average daily pain of 7 which is stable. Activity Level: Home activities: limited due to pain Hypertension Pertinent negatives include no chest pain, palpitations or shortness of breath. Current Outpatient Medications on File Prior to Visit Medication Sig Dispense Refill alendronate (Fosamax) 35 MG tablet Take one pill weekly 4 tablet 3 atorvastatin (Lipitor) 20 MG tablet TAKE 1 TABLET DAILY 90 tablet 3 FLUoxetine (PROzac) 20 MG capsule TAKE 2 CAPSULES DAILY 180 capsule 3 HYDROcodone-acetaminophen (Bulan) 10-325 MG tablet Take 1 tablet by mouth every 6 (six) hours if needed for severe pain for up to 15 days 60 tablet 0 nitroglycerin (Nitrostat) 0.[address] 0.4 mg under the tongue every 5 (five) minutes if needed for chest pain. pantoprazole (ProtoNix) 40 MG EC tablet TAKE 1 TABLET DAILY 90 tablet 3 potassium chloride CR (Klor-Con) 10 MEQ ER tablet Take 10 mEq by mouth in the morning and 10 mEq before bedtime. tiZANidine (Zanaflex) 4 MG tablet Take 4 mg by mouth in the morning and 4 mg before bedtime. topiramate 50 MG tablet TAKE 1 TABLET TWICE A DAY 180 tablet 3 [DISCONTINUED] HYDROcodone-acetaminophen (Bulan) 10-325 MG tablet Take 1 tablet by mouth every 6 (six) hours if needed for severe pain for up to 15 days 60 tablet 0 No current facility-administered medications on file prior to visit. No Known Allergies Social History Tobacco Use Smoking status: Former Types: Cigarettes Quit date: 2004 Years since quittin.1 Smokeless tobacco: Never Substance Use Topics Alcohol use: Not Currently Drug use: Never Family History Problem Relation Name Age of Onset Cancer Mother Diabetes Father Past Medical History: Diagnosis Date Cerebrospinal fluid leak Deviated nasal septum H/O breast reduction surgery Type 2 diabetes mellitus without complication, without long-term current use of insulin ([facility]) 02/07/2023 Umbilical hernia Past Surgical History: Procedure Laterality Date APPENDECTOMY BREAST SURGERY REDUCTION CHOLECYSTECTOMY GASTRIC BYPASS 2018 ANNE EN Y HERNIA REPAIR SEPTOPLASTY SINUS SURGERY 2016 [facility] 2021 DR JUAREZ TUBAL LIGATION Visit Vitals BP 126/70 Pulse 83 Ht 5' 1 Wt 185 lb SpO2 97% BMI 34.96 kg/m Smoking Status Former BSA 1.9 m Review of Systems Constitutional: Negative for chills, fatigue and fever. Respiratory: Negative for cough, shortness of breath and wheezing. Cardiovascular: Negative for chest pain and palpitations. Gastrointestinal: Negative for abdominal pain, constipation, diarrhea, nausea and vomiting. Musculoskeletal: Positive for arthralgias, back pain and gait problem. Skin: Negative for rash. Objective Physical Exam Constitutional: General: She is not in acute distress. Appearance: Normal appearance. She is well-developed. HENT: Head: Normocephalic and atraumatic. Eyes: General: No scleral icterus. Conjunctiva/sclera: Conjunctivae normal. Cardiovascular: Rate and Rhythm: Normal rate and regular rhythm. Heart sounds: Normal heart sounds. No murmur heard. Pulmonary: Effort: Pulmonary effort is normal. No respiratory distress. Breath sounds: Normal breath sounds. No wheezing, rhonchi or rales. Musculoskeletal: Right shoulder: Tenderness present. No swelling, deformity or effusion. Left shoulder: Tenderness present. Decreased range of motion. Skin: General: Skin is warm and dry. Neurological: General: No focal deficit present. Mental Status: She is alert and oriented to person, place, and time. Psychiatric: Mood and Affect: Mood normal. Behavior: Behavior normal. No visits with results within 2 Month(s) from this visit. Latest known visit with results is: Office Visit on 02/07/2023 Component Date Value Ref Range Status WHITE BLOOD CELL COUNT 04/05/2023 6.1 3.8 - 10.8 Thousand/uL Final RED BLOOD CELL COUNT 04/05/2023 4.23 3.80 - 5.10 Million/uL Final HEMOGLOBIN 04/05/2023 12.5 11.7 - 15.5 g/dL Final HEMATOCRIT 04/05/2023 38.0 35.0 - 45.0 % Final MCV 04/05/2023 89.8 80.0 - 100.0 fL Final MCH 04/05/2023 29.6 27.0 - 33.0 pg Final MCHC 04/05/2023 32.9 32.0 - 36.0 g/dL Final RDW 04/05/2023 12.6 11.0 - 15.0 % Final PLATELET COUNT 04/05/2023 185 140 - 400 Thousand/uL Final MPV 04/05/2023 12.2 7.5 - 12.5 fL Final ABSOLUTE NEUTROPHILS 04/05/2023 3,684 1,500 - 7,800 cells/uL Final ABSOLUTE LYMPHOCYTES 04/05/2023 1,653 850 - 3,900 cells/uL Final ABSOLUTE MONOCYTES 04/05/2023 543 200 - 950 cells/uL Final ABSOLUTE EOSINOPHILS 04/05/2023 201 15 - 500 cells/uL Final ABSOLUTE BASOPHILS 04/05/2023 18 0 - 200 cells/uL Final NEUTROPHILS 04/05/2023 60.4 % Final LYMPHOCYTES 04/05/2023 27.1 % Final MONOCYTES 04/05/2023 8.9 % Final EOSINOPHILS 04/05/2023 3.3 % Final BASOPHILS 04/05/2023 0.3 % Final CREATININE, RANDOM URINE 04/05/2023 115 20 - 275 mg/dL Final ALBUMIN, URINE 04/05/2023 2.3 See Note: mg/dL Final Comment: Reference Range: Reference Range Not established ALBUMIN/CREATININE RATIO, RANDOM U* 04/05/2023 20 <30 mcg/mg creat Final Comment: The ADA defines abnormalities in albumin excretion as follows: Albuminuria Category Result (mcg/mg creatinine) Normal to Mildly increased <30 Moderately increased 30-299 Severely increased > OR = 300 The ADA recommends that at least two of three specimens collected within a 3-6 month period be abnormal before considering a patient to be within a diagnostic category. Glucose 04/05/2023 92 65 - 99 mg/dL Final Comment: Fasting reference interval BUN 04/05/2023 21 7 - 25 mg/dL Final Creatinine 04/05/2023 0.73 0.50 - 1.05 mg/dL Final EGFR 04/05/2023 91 > OR = 60 mL/min/1.73m2 Final BUN/CREATININE RATIO 04/05/2023 SEE NOTE: 6 - 22 (calc) Final Comment: Not Reported: BUN and Creatinine are within reference range. Sodium 04/05/2023 141 135 - 146 mmol/L Final Potassium, Bld 04/05/2023 4.3 3.5 - 5.3 mmol/L Final Chloride 04/05/2023 110 98 - 110 mmol/L Final Carbon Dioxide 04/05/2023 24 20 - 32 mmol/L Final Calcium 04/05/2023 8.7 8.6 - 10.4 mg/dL Final PROTEIN, TOTAL 04/05/2023 6.6 6.1 - 8.1 g/dL Final ALBUMIN 04/05/2023 4.3 3.6 - 5.1 g/dL Final GLOBULIN 04/05/2023 2.3 1.9 - 3.7 g/dL (calc) Final ALBUMIN/GLOBULIN RATIO 04/05/2023 1.9 1.0 - 2.5 (calc) Final BILIRUBIN, TOTAL 04/05/2023 0.4 0.2 - 1.2 mg/dL Final ALKALINE PHOSPHATASE 04/05/2023 74 37 - 153 U/L Final AST 04/05/2023 33 10 - 35 U/L Final ALT 04/05/2023 49 (H) 6 - 29 U/L Final Hemoglobin A1C 04/05/2023 5.7 (H) <5.7 % of total Hgb Final Comment: For someone without known diabetes, a hemoglobin A1c value between 5.7% and 6.4% is consistent with prediabetes and should be confirmed with a follow-up test. For someone with known diabetes, a value <7% indicates that their diabetes is well controlled. A1c targets should be individualized based on duration of diabetes, age, comorbid conditions, and other considerations. This assay result is consistent with an increased risk of diabetes. Currently, no consensus exists regarding use of hemoglobin A1c for diagnosis of diabetes for children. HbA1c performed on [employer] platform. Effective 03/15/23 a change in test platforms may have shifted HbA1c results compared to historical results. CHOLESTEROL, TOTAL 04/05/2023 168 <200 mg/dL Final HDL CHOLESTEROL 04/05/2023 51 > OR = 50 mg/dL Final TRIGLYCERIDES 04/05/2023 131 <150 mg/dL Final LDL-CHOLESTEROL 04/05/2023 94 mg/dL (calc) Final Comment: Reference range: <100 Desirable range <100 mg/dL for primary prevention; <70 mg/dL for patients with CHD or diabetic patients with > or = 2 CHD risk factors. LDL-C is now calculated using the Quan-Dowell calculation, which is a validated novel method providing better accuracy than the Friedewald equation in the estimation of LDL-C. Quan SS et al. ANTHONY. 2013;310(19): 8014-4782 (http://education.[employer].com/faq/CPI218) CHOL/HDLC RATIO 04/05/2023 3.3 <5.0 (calc) Final NON HDL CHOLESTEROL 04/05/2023 117 <130 mg/dL (calc) Final Comment: For patients with diabetes plus 1 major ASCVD risk factor, treating to a non-HDL-C goal of <100 mg/dL (LDL-C of <70 mg/dL) is considered a therapeutic option. TSH W/REFLEX TO FT4 04/05/2023 3.94 0.40 - 4.50 mIU/L Final HEPATITIS C ANTIBODY 04/05/2023 NON-REACTIVE NON-REACTIVE Final Comment: HCV antibody was non-reactive. There is no laboratory evidence of HCV infection. In most cases, no further action is required. However, if recent HCV exposure is suspected, a test for HCV RNA (test code 61907) is suggested. For additional information please refer to http://education.[employer]/faq/GJE44y3 (This link is being provided for informational/ educational purposes only.) Assessment/Plan Diagnoses and all orders for this visit: Benign essential hypertension (CMS/HCC) - This is a chronic medical condition that is stable since last assessment. No changes in treatment are suggested at this time. Spinal stenosis of lumbar region without neurogenic claudication - Medication choice and dosage is appropriate for patient's current medical conditions. Patient will continue to be required to be seen in our office at least every three months for monitoring. At each follow up visit I will reassess the patient's need for the medication. Patient is to have this medication prescribed only through this office. Failure to follow the rules and regulations will result in tapering and discontinuation of medications if applicable. Patient verbalized understanding. OARRS Report was reviewed for this patient. Degeneration of lumbar or lumbosacral intervertebral disc - See above. Rotator cuff tendinitis, right - Ambulatory referral to Orthopaedic Surgery; Future Follow up in about 3 months (around 08/10/2023) for Controlled Med Review. documented in this encounter [facility] 05-11-2023 Telephone encount er Note Already sent [facility] 05-11-2023 Miscellaneous Notes Formattin g of this note might be different from the original. Already sent documented in this encounter [facility] 05-11-2023 Telephone encount er Note OARRS reviewed, Rx sent into patient's pharmacy. [facility] 05-11-2023 Miscellaneous Notes Formattin g of this note might be different from the original. OARRS reviewed, Rx sent into patient's pharmacy. documented in this encounter [facility] 01-13-2022 Note EXAMINATION: XR CHES T 2 V HISTORY: COVID-19 ; shortness of breath with exertion, left side chest pain COMPARISON: XR chest 05/12/2019 FINDINGS: LUNGS: No significant pulmonary parenchymal abnormalities. VASCULATURE: No increased pulmonary vasculature. PLEURA: No pneumothorax, effusion, or pleural thickening. CARDIAC: No cardiomegaly or cardiac silhouette abnormality. MEDIASTINUM: No visible mass or adenopathy. BONES: No fracture or visible bone lesion. OTHER: Negative. IMPRESSION: 1. No acute cardiopulmonary process. Electronically authenticated by: DARLYN CLEMONS Date: 2022-01-13 06:52 [facility] 09-08-2021 Evaluation note Encounter Date Diagnosis Assessment Notes Aug, Spinal stenosis, lumbar region with neurogenic claudication (ICD-10 - M48.062) Patient is now 3 months status post lumbar decompression and is feeling very good. She has no leg pain, her back feels good, she is happy with her operative result. I will see her again in the future on an as-needed basis. [employer] Other 04-12-2022 Evaluation note* Encounter Date Diagnosis Assessment Notes Treatment Notes Treatment Clinical Notes Jun, Spinal stenosis, lumbar region with neurogenic claudication (ICD-10 - M48.062) At 1 month postop the patient has excellent relief of her thigh pain and is walking well. She is happy with her outcome. I will see her again in 2 months with a follow-up. Plan is for her to return to work mid-July [employer] Other 02-17-2022 Evaluation note* Encounter Date Diagnosis Assessment Notes Treatment Notes Treatment Clinical Notes Apr, Spinal stenosis, lumbar region with neurogenic claudication (ICD-10 - M48.062) Apr, Spondylolisthesis of lumbar region (ICD-10 - M43.16) I have independently reviewed the MRI of the lumbar spine and the 6 view image of the lumbar spine. There are small areas of malalignment and spondylolisthesis but there is a area at L2-3 with severe stenosis and a left lateral recess disc herniation with increased stenosis. Clinically the patient does have neurogenic claudication. She does not verbalize it perfectly but I think is quite incapacitated by it. She also has 20 or 30 years of chronic low back pain. I had a long discussion with this patient today include that her back pain may not improve as much as she desires. It could theoretically be worse. I recommended a decompressive lumbar laminectomy and probable discectomy. The patient 2 rebollar ago had physical therapy and was discharged by therapy because there is no more that could be done. The symptoms were present at that time. With the severity of stenosis physical therapy will not help relieve the physical stenosis and in my opinion is only delaying the patient's care. This patient is in need of a decompressive lumbar laminectomy L2-3 with discectomy. I spent 40 minutes face to face with the patient reviewing imaging and discussing treatment options and risks and benefits of surgery. She understands the indication operation postop course risk and benefits of surgery to include infection, spinal fluid leak, nerve damage, potential paralysis, incomplete relief of symptoms. The patient desires to proceed with surgical intervention. [employer] Other 01-14-2022 Evaluation note* Encounter Date Diagnosis Assessment Notes Treatment Notes Treatment Clinical Notes Mar, Spondylolisthesis of lumbar region (ICD-10 - M43.16) Mar, Post menopausal synd adrianne (ICD-10 - Z78.0) [employer] Other 12-30-2021 Evaluation note* Encounter Date Diagnosis Assessment Notes Treatment Notes Treatment Clinical Notes Feb, Other The patient did not have an MRI with her which was done recently for me to evaluate. Given the fact that she is feeling well with no MRI I believe that we should not have an office visit we will reschedule this visit for another time [employer] Other evaluation noteNo [employer] Other evaluation note* Diagnosis Lumbar disc disease with radiculopathy [facility] Diagnosis Lumbar disc disease with radiculopathy [facility]* Diagnosis Benign essential hypertension (CMS/HCC)- Primary Essential hypertension, benign Spinal stenosis of lumbar region without neurogenic claudication Degeneration of lumbar or lumbosacral intervertebral disc Rotator cuff tendinitis, right documented [facility] this [facility] N[facility]ative - Reported* Type Description Date Medical History Esophageal reflux Medical History diabetes mallitus Surgical History hysteroscopy Surgical History appendectomy Surgical History D&C Surgical History tubal ligation Surgical History cholecystectomy Surgical History Gastric Sleeve Hospitalization History See Above [employer] Other History general Narrative - Reported* Type Description Date Medical History Esophageal reflux Medical History diabetes mallitus Surgical History hysteroscopy Surgical History appendectomy Surgical History D&C Surgical History tubal ligation Surgical History cholecystectomy Surgical History Gastric Sleeve Surgical History Lumbar Decompression-Doctor Bra un Hospitalization History See Above [employer] Other reason for referral (narrative)* Consultation (Routine) - Pending Review Specialty Diagnoses / Procedures Referred By Contact Referred To Contact Orthopaedic Surgery Diagnoses Rotator cuff tendinitis, right Tello Triplett MD [address] [facility] [address] [place] [address] Oriana Wright NP [address] [facility] [address] [place] [address] Referral ID Status Reason Start Date Expiration Date Visits Requested Visits Authorized [id number] Pending Review Specialty Services Required 05/12/2023 11/08/2023 1 1 [facility] Summary Purpose Family History No Family History Records FoundNo Family History Records FoundNo Family History Records FoundNo Family History Records FoundNo Family History Records FoundNo Family History Records FoundNo Family History Records Found Advance Directives No Advanced Directives Records FoundNo Advanced Directives Records FoundNo Advanced Directives Records FoundNo Advanced Directives Records FoundNo Advanced Directives Records FoundNo Advanced Directives Records FoundNo Advanced Directives Records Found Reason for Referral Specialty Diagnoses / Procedures Referred By Contac t Referred To Contact Diagnoses Lumbar disc disease with radiculopathy Isabelle Alvares PA [address] [facility] [address] [place] [address] Referral ID Status Reason Start Date Expiration Date Visits Re quested Visits Authorized [id number] Closed 1 1 Additional Source Comments INFORMATION SOURCE (unrecogn ized section and content) DATE CREATED AUTHOR 09/20/2017 [facility] DATE CREATED AUTHOR AUTHOR'S ORGANIZ ATION 08/10/2019 [facility] DATE CREATED AUTHOR AUTHOR'S ORGANIZ ATION 02/12/2021 [facility] DATE CREATED AUTHOR AUTHOR'S ORGANIZ ATION 05/01/2022 [facility] DATE CREATED AUTHOR AUTHOR'S ORGANIZ ATION 05/14/2022 [facility] DATE CREATED AUTHOR AUTHOR'S ORGANIZ ATION 08/11/2022 [facility] DATE CREATED AUTHOR AUTHOR'S ORGANIZ ATION 08/12/2023 [facility] d[facility] Specialists EPIC REASON FOR VISIT (unrecogniz ed section and content) Reason Onset Date Comments Med Refill 05/11/2023 HYDROCODONE TO Kaela SHARMA IN [place] Reason Onset Date Comments Med Refill 05/10/2023 Hydorocodone - Kaela [place] Reason Comments Follow-up Pain med Hypertension Results labs Shoulder Pain Pt states she has mendoza d ongoing left shoulder pain over the last few months her right shoulder has really started bothering her she has seen ortho for left shoulder in past Care Teams (unrecognized sec tion and content) Head Swamper Relationship Specialty Start Date End Date Tello Triplett MD [address] [facility] [address] [place] [address] PCP - General Internal Medicine 08/03/22 Tello Triplett MD [address] [facility] [address] [place] [address] PCP - [employer] 10/26/22 Head Swamper Relationship Specialty Start Date End Date Tello Triplett MD [address] [facility] [address] [place] [address] PCP - General Internal Medicine 08/03/22 Tello Triplett MD [address] [facility] [address] [place] [address] PCP - [employer] 10/26/22 Head Swamper Relationship Specialty Start Date End Date Tello Triplett MD [address] [facility] [address] [place] [address] PCP - General Internal Medicine 08/03/22 Tello Triplett MD [address] [facility] [place] [address] PCP - [employer] 10/26/22 Head Swamper Relationship Specialty Start Date End Date Tello Triplett MD [address] [facility] [address] [place] [address] PCP - General Internal Medicine 08/03/22 Tello Triplett MD [address] [facility] [place] [address] PCP - [employer] 10/26/22 FOR RECORDS PERTAINING TO PATIENTS WHO ARE OR HAVE BEEN ENROLLED IN A CHEMICAL DEPENDENCY/SUBSTANCEABUSE PROGRAM, SOME INFORMATION MAY BE OMITTED. This clinical summary was aggregated from multiple sources. Caution should be exercised in using it in the provision of clinical care. This summary normalizes information from multiple sources, and as a consequence, information in this document may materially change the coding, format and clinical context of patient data. In addition, data may be omitted in some cases. CLINICAL DECISIONS SHOULD BE BASED ON THE PRIMARY CLINICAL RECORDS. [employer] [facility]. provides no warranty or guarantee of the accuracy or completeness of information in this document.
== END 2023-08-29 21:05 | disposition home or self-care (01) ==
LOC: LAB 21:04
PROVIDERS: PCP Internal Medicine; Visit Provider Obstetrics & Gynecology
DX: Z01.419 Encounter for gynecological examination (general) (routine) without abnormal findings (principal)
CPT/HCPCS: 88175

== ENCOUNTER 2023-09-15 12:54 | Outpatient (OUT) | payer MEDICARE, SELFPAY ==
--- NOTE | 2023-09-15 12:57 | US_ITS ---
The [address] [address] Patient Name: LUIS CLEVELAND MRN: [id number] date: 1955 Sex: F Assigned Patient Location: US Current Patient Location: Accession/Order Number: [id number] Exam Date: 09/15/2023 13:00 Report Date: 09/16/2023 04:55 At the request of: RON CARBAJAL Procedure: US pelvis w/ transvaginal EXAMINATION: US pelvis w/ transvaginal HISTORY: Pelvic Pain COMPARISON: CT abdomen pelvis 10/15/2015 TECHNIQUE: Transabdominal and/or transvaginal sonographic examination was performed as indicated by examination type. FINDINGS: UTERUS: Several calcifications within uterine myometrium, largest is 1.6 cm. Uterus size: 5.0 x 2.7 x 4.3 cm ENDOMETRIUM: Normal homogeneous appearance. Endometrial thickness: 3 mm RIGHT OVARY: Normal size and appearance. Duplex Doppler demonstrates normal waveform and flow; resistive index 0.6. Ovary size: 2.3 x 2.2 x 2.1 cm LEFT OVARY: Not seen. No suspicious adnexal findings CUL-DE-SAC: Unremarkable. No significant free fluid. BLADDER: Unremarkable. OTHER: None. US/US pelvis w/ transvaginal IMPRESSION: 1. Calcifications within uterine myometrium, also seen on prior CT study; most suggestive of calcified small leiomyomas. 2. No suspicious findings. Electronically authenticated by: DARLYN CLEMONS Date: 09/16/2023 04:55
--- OUTSIDE RECORDS SUMMARY | 2023-09-15 12:58 | XMS_ITS | CCD ---
Author Organization [facility] Inform ion [facility] Care Team Providers Care 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 Helper Name Role Phone KINJAL TRAN (PAIGE-Geronimo) Unavailable Unavaila ble KINJAL TRAN (MIKY) Unavailable [...] Juarez Admitting Unavailable Ashutosh Juarez Attending Unavailable NILDakotah, Rick Restrepo Attending Unavailable NILLRick Attending Unavailable Jerrod RUBI Referring Unavailable HEMMER, DR ISABELLE Ba Admitting Unavailable HEMMER, DR ISABELLE Ba Attending Unavailable NELLA, DR LOPEZ Primary Care Unavailable OLIEBKELLY, DR DARLYN Restrepo Consulting Unavailable HEMMER, DR ISABELLE Ba Consulting Unavailable KARASIKaela ., DR ELDER Admitting [...] KARASIK ., DR ELDER Consulting Unavailabl e KARASIKaela ., DR ELDER Attending Unavailabl e NELLA, DR LOPEZ Primary Care Unavailable Tello Triplett MD Primary Care Provider Tello Triplett MD Unavailable [phone] TELLO TRIPLETT Attending Unavailable SURESH JAIMES Attending Unavailable TELLO TRIPLETT Attending Unavailable SURESH JAIMES Attending Unavailable TELLO TRIPLETT Attending Unavailable TON WHEELER Attending Unavailable Medications Current Medications Medication Drug Class(es) Dates Sig (Normalized) Sig (Original) acetaminophen 325 mg / HYDROcodone bitartrate 10 mg oral tablet (10 sources) Opioid Agonist Start: 05-11-2023 End: 05-26-2023 take 1 tablet by mouth every six hours for pain HYDROcodone-acetami nophen (Gays) 10-325 MG tablet Indications: Lumbar disc disease with radiculopathy Take 1 tablet by mouth every 6 (six) hours if needed for severe pain for up to 15 days 60 tablet 0 05/11/2023 05/26/2023 Active HYDROcodone-Acet aminophen 5-325 MG (Schedule II Drug) (Prior Auth#:[id number]) Oral for 7 Active alendronic acid 35 [...] Active FLUoxetine HCl 2 0 MG (Prior Auth#:[id number]) Oral for 90 Active ketoconazole 200 mg [...] Active Pantoprazole Sod ium 40 MG (Prior Auth#:[id number]) Oral for 90 Active potassium chloride 10 [...] hypertension; Translations: [Essential (primary) hypertension] Onset: 11-02-2022 11-02-2022 Chronic Genitourinary symptoms and ill-defined conditions (5 [...] by: DARLYN CLEMONS Date: 2022-08-05 07:20 Normal [facility] Physician Referralon 023 Physician Referral [phone] [id number]#[id number] D:127 Normal [facility] MG MAMM SCREEN 3D KANE CADon 05-07-2022 MG MAMM SCREEN 3D KANE CAD Patient: LUIS BLOCK Exam Date: 05/07/2022 : 1955 Gender:F Ordering : DR JERROD RUBI . Admission #: [id number] Family : Order #: [id number] CLICK HERE TO VIEW EXAM RADIOLOGY REPORT [...] hodgkins cancer at age 29. LOCATION: [facility] BREAST COMPOSITION: Scattered areas fibroglandular density. FINDINGS: [...] Whatley MD on 05/10/2022 at 07:44 Normal [facility] XR DEXA BONE DENSITYon 05-07 XR DEXA [...] Moderate Fracture Risk Electronically authenticated by: DARLYN DELANEYKELLY Date: 2022-05-07 13:56 Normal [facility] PAP ACOG PANEL 2: 30 to 65on 04-23-2022 . . Normal [facility] Comment on above: Result Comment: Perf ormed at: WB Performed By: #### 4 [id number] #### [facility] [address] [address] [address] May Syed Age Gdln ACOG Testing 30-65 [facility] Comment on above: Performed By: #### 4 [id number] #### [facility] [address] [address] [address] May Syed DIAGNOSIS: Comment Normal [facility] Comment on above: Result Comment: NEGA TIVE FOR INTRAEPITHELIAL LESION OR MALIGNANCY. CELLULAR CHANGES ASSOCIATED WITH ATROPHY ARE PRESENT. Performed at: WB Performed By: #### 4 [id number] #### [facility] [address] [address] [address] May Syed HPV Aptima Negative Normal Negative [facility] Comment on above: Result Comment: This nucleic acid amplification test detects fourteen high-risk HPV types (16,18,31,33,35,39,45,51,52,56,58,59,66,68) without differentiation. Performed at: =G Performed By: #### 4 [id number] #### [facility] [address] [address] [address] May Syed HPV Genotype Reflex Comment Normal [facility] Comment on above: Result Comment: Crit eria not met, HPV Genotype not performed. Performed at: WB Performed By: #### 4 [id number] #### [facility] [address] [address] [address] May Syed Methodology: Comment Normal [facility] Comment on above: Result Comment: This liquid based ThinPrep(R) pap test was screened with the use of an image guided system. Performed at: WB Performed By: #### 4 [id number] #### [facility] [address] [place] [address] Dr. May Syed Note: Comment [facility] Comment on above: Result Comment: The Pap smear is a screening test designed to aid in the detection of premalignant and malignant conditions of the uterine cervix. It is not a diagnostic procedure and should not be used as the sole means of detecting cervical cancer. Both false-positive and false-negative reports do occur. . Performed at: WB Performed By: #### 4 [id number] #### [facility] [address] [place] [address] Dr. May Syed Performed by: Comment Normal [facility] Comment on above: Result Comment: Aniyah Monk, Embossing Machine Operator Helper (ASCP) Performed at: WB Performed By: #### 4 [id number] #### [facility] [address] [place] [address] Dr. May Syed Specimen adequacy: Comment Normal [facility] Comment on above: Result Comment: Sati sfactory for evaluation. Endocervical component may not be distinguished in cases of atrophy. Performed at: WB Performed By: #### 4 [id number] #### [facility] [address] [place] [address] Dr. May Syed Physician Referralon 023 Physician Referral [phone] [id number]#[id number] D:127 Normal [facility] Glucose Poct Glucometerson 0 06-09-2021 Commemt1 Glu2: Cleaned Meter Normal [facility] Comment on above: Result Comment: PERF ORMED BY: [facility] [address] [place] [address] PATHOLOGIST MATERIALS BUYER MARCUS VILLALOBOS M.D. Performed By: #### G LUBAO #### Point of Care testing , Glucose [Mass/Vol] 154 mg/dL Normal [facility] Comment on above: Result Comment: [facility] Glucose Reference Range is dependent on time and content of last meal. Glucose of more than 200 mg/dL in a nonstressed, ambulatory subject supports the diagnosis of Diabetes Mellitus. Performed By: #### G LULS #### Point of Care testing , Glucose [Mass/Vol] 135 mg/dL Normal [facility] Comment on above: Result Comment: [place] om Glucose Reference Range is dependent on time and content of last meal. Glucose of more than 200 mg/dL in a nonstressed, ambulatory subject supports the diagnosis of Diabetes Mellitus. PERFORMED BY: [place] [id number] PATHOLOGIST MATERIALS BUYER MARCUS VILLALOBOS M.D. Performed By: #### G CODIE #### Point of Care testing , Glucose Poct Glucometerson 0 06-08-2021 Glucose [Mass/Vol] 150 mg/dL Normal [facility] Comment on above: Result Comment: [place] Glucose Reference Range is dependent on time and content of last meal. Glucose of more than 200 mg/dL in a nonstressed, ambulatory subject supports the diagnosis of Diabetes Mellitus. PERFORMED BY: [address] [address] PATHOLOGIST MATERIALS BUYER MARCUS VILLALOBOS M.D. Performed By: #### G CODIE #### Point of Care testing , Glucose [Mass/Vol] 152 mg/dL Normal [facility] Comment on above: Result Comment: [place] Glucose Reference Range is dependent on time and content of last meal. Glucose of more than 200 mg/dL in a nonstressed, ambulatory subject supports the diagnosis of Diabetes Mellitus. PERFORMED BY: [address] [place] [address] PATHOLOGIST MATERIALS BUYER MARCUS VILLALOBOS M.D. Performed By: #### G LULS #### Point of Care testing , Cezar 06-08-2021 L --- Specimen: [id number] Received: 06/08/21 Status: CANDICE Berry Num: [id number] Spec Type: Surgical Subm Dr: Ashutosh Juarez MD Tissues: A Disc - Intervertebral/Lumbar/C ervical (LUMBAR) Procedures: HE Stain, Gross/Micro L3 Patient Age/Sex Location Account Attending Physician Luis Block 65/F 4N [id number] sAhutosh Juarez MD SPEC NUM: [id number] RECD: 06/08/21 STATUS: CANDICE BERRY NUM: [id number] ELMO: 06/08/21- [facility] DR: Ashutosh Juarez MD ENTERED: 06/08/[address]: OLMAN TYPE: Surgical DEPT: S ORDERED: [...] support the above pathologic diagnosis. CPT Codes 61558 Specimen: [id number] Received: 06/08/21 Status: CANDICE Berry Num: [id number] Spec Type: Surgical Subm Dr: Ashutosh Juarez MD Tissues: A Disc - Intervertebral/Lumbar/C ervical (LUMBAR) Procedures: HE Stain, Gross/Micro L3 Patient: Luis Block [id number] (Continued) Signed (signature on file) Dinorah Augustin MD 06/09/21 1138 [facility] XR lumbar spine 1Von 022 XR lumbar spine 1V [place] [address] XRay Report Signed Patient: Luis Block MR#: [id number] : 1955 Acct:[id number] Age/Sex: 65 / F ADM Date: 06/08/21 Loc: [place] Room: Type: [facility] Attending Dr: Ashutosh Juarez MD Ordering [...] Hermosillo Jr., D.OErin06/08/2021 10:48 AM Dictation Location: [place] [address] Transcribed By: [facility] 06/08/21 104 Dictated By: Devin Hermosillo Jr, DO 06/08/21 1047 Signed By: 06/08/21 1048 [facility] COVID-19 [facility] SARS-CoV-2 (COVID-19) RNA ANGEL+probe Ql (Unsp spec) Negative Normal Negative [facility] Comment on above: Order Comment: Healt hcare Worker?: N Result Comment: Testing for SARS-CoV-2 by RT-PCR This test was developed and its performance characteristics determined by [employer] ([employer]) and validated at the [facility]. This test has not been FDA [...] is terminated or revoked sooner. PERFORMED BY: [place] [address] PATHOLOGIST MATERIALS BUYER MARCUS VILLALOBOS M.D. Performed By: #### C OVID 19 [facility] #### [address] Basic Metabolic Panelon 04-29 Calcium [Mass/Vol] 9.2 mg/dL Normal 8.2-10.2 [facility] Comment on above: Result Comment: PERF ORMED BY: [place] [address] PATHOLOGIST MATERIALS BUYER MARCUS VILLALOBOS M.D. Performed By: #### C BC, BMP #### [place] [id number] [place] Chloride [Moles/Vol] 110 mmol/L Normal 95-[address] [facility] Comment on above: Performed By: #### C BC, BMP #### [facility] [address] [id number] [facility] CO2 [Moles/Vol] 22.9 mmol/L Normal 22.0-30.0 [facility] Comment on above: Performed By: #### C BC, BMP #### [facility] [address] [place] [address] Creatinine [Mass/Vol] 0.69 mg/dL Normal 0.44-1.[address] [facility] Comment on above: Performed By: #### C BC, BMP #### [address] Estimated GFR ( Nahed > [address] [facility] Comment on above: Result Comment: GFR estimated reference range: According to KDOQI guidelines, <60 ml/min/1.73m2 is sufficient to diagnose a patient with chronic kidney disease. Performed By: #### C BC, BMP #### [address] Estimated GFR (Non- Am > [address] [facility] Comment on above: Performed By: #### C BC, BMP #### [address] Glucose [Mass/Vol] 75 mg/dL Normal 70-100 [facility] Comment on above: Result Comment: [place] [facility] Glucose Reference Range is dependent on time and content of last meal. Glucose of more than 200 mg/dL in a nonstressed, ambulatory subject supports the diagnosis of Diabetes Mellitus. ADA recommended reference range Performed By: #### C BC, BMP #### [address] Potassium [Moles/Vol] 4.1 mmol/L Normal 3.5-5.[address] [facility] Comment on above: Performed By: #### C BC, BMP #### [address] Sodium [Moles/Vol] 140 mmol/L Normal 136-146 [facility] Comment on above: Performed By: #### C BC, BMP #### [address] Urea nitrogen [Mass/Vol] 18 mg/dL Normal 9-[address] [facility] Comment on above: Performed By: #### C BC, BMP #### [address] Complete Blood Count Auto Di ffon 02-28-2022 Basophils (Bld) [#/Vol] 0.0 10*3/uL Normal 0.0-0.[address] [facility] Comment on above: Result Comment: PERF ORMED BY: [place] [address] PATHOLOGIST MATERIALS BUYER MARCUS VILLALOBOS M.D. Performed By: #### C BC, BMP #### [address] Basophils/100 WBC (Bld) 0.6 % Normal . [facility] Comment on above: Performed By: #### C BC, BMP #### [place] [address] [place] Eosinophils (Bld) [#/Vol] 0.2 10*3/uL Normal 0.0-0.[address] [facility] Comment on above: Performed By: #### C BC, BMP #### [address] Eosinophils/100 WBC (Bld) 2.7 % Normal . [facility] Comment on above: Performed By: #### C BC, BMP #### [address] Erythrocyte distribution width (RBC) [Ratio] 13.6 % Normal 11.9-15.[address] [facility] Comment on above: Performed By: #### C BC, BMP #### [address] Hematocrit (Bld) [Volume fraction] 37.0 % Normal 34.0-46.[address] [facility] Comment on above: Performed By: #### C BC, BMP #### [place] [address] [place] Hemoglobin (Bld) [Mass/Vol] 12.6 g/dL Normal 11.8-15.[address] [facility] Comment on above: Performed By: #### C BC, BMP #### [address] Lymphocytes (Bld) [#/Vol] 2.1 10*3/uL Normal 1.00-4.[address] [facility] Comment on above: Performed By: #### C BC, BMP #### [facility] [address] [place] [address] [place] Lymphocytes/100 WBC (Bld) 34.3 % Normal . [facility] Comment on above: Performed By: #### C BC, BMP #### [facility] [address] MCH (RBC) [Entitic mass] 30.1 pg Normal 24.7-34.[address] [facility] Comment on above: Performed By: #### C BC, BMP #### [facility] [address] MCV (RBC) [Entitic vol] 88.1 fL Normal 80-[address] [facility] Comment on above: Performed By: #### C BC, BMP #### [address] Mean Corpuscular HGB Conc 34.1 g/dL Normal 32.0-35.[address] [facility] Comment on above: Performed By: #### C BC, BMP #### [place] [address] [place] Monocytes (Bld) [#/Vol] 0.6 10*3/uL Normal 0.0-0.[address] [facility] Comment on above: Performed By: #### C BC, BMP #### [place] [address] [place] Monocytes/100 WBC (Bld) 10.4 % Normal . [facility] Comment on above: Performed By: #### C BC, BMP #### [facility] [address] [place] [address] [place] Neutrophils (Bld) [#/Vol] 3.2 10*3/uL Normal 1.8-7.[address] [facility] Comment on above: Performed By: #### C BC, BMP #### [facility] [address] Neutrophils/100 WBC (Bld) 52.0 % Normal . [facility] Comment on above: Performed By: #### C BC, BMP #### [facility] [address] Nucleated RBC/100 WBC (Bld) [Ratio] 0.2 % Normal 0-0.[address] [facility] Comment on above: Performed By: #### C BC, BMP #### [facility] [address] Platelet mean volume (Bld) [Entitic vol] 9.7 fL Normal 6.3-10.[address] [facility] Comment on above: Performed By: #### C BC, BMP #### [facility] [address] [place] [address] [place] Platelets (Bld) [#/Vol] 182 10*3/uL Normal 150-[address] [facility] Comment on above: Performed By: #### C BC, BMP #### [facility] [address] RBC (Bld) [#/Vol] 4.20 10*6/uL Normal 3.60-5.00 [facility] Comment on above: Performed By: #### C BC, BMP #### [facility] [address] WBC (Bld) [#/Vol] 6.1 10*3/uL Normal 4.5-11.0 [facility] Comment on above: Performed By: #### C BC, BMP #### [address] ECG 12 lead ECGon 05-25-2021 ECG 12 lead ECG [facility] [place] [address] [place] [address] Electrocardiograph Report Signed Patient: Luis Block MR#: [id number] : 1955 Acct:[id number] Age/Sex: 65 / F ADM Date: 05/25/21 Loc: [place] Room: Type: [facility] Attending Dr: Ashutosh Juarez MD Ordering Provider: [...] Electronically Signed By:KENDAL GODINEZ MD Transcribed By: JUSTIN Signed By Kendal Godinez MD 0 05/26/21 [address] [facility] MRI Spine Lumbar w/o Contras ton [...] Electronically Signed in Other Vendor System) Normal [facility] XR Spine Lumbosacral Complet kenya 02-12-2021 [...] Electronically Signed in Other Vendor System) Normal [facility] CARDIAC STRESS/REST INJE CTIONon 06-19-2019 [facility] CARDIAC STRESS/REST INJECTION Patient Name: LUIS BLOCK STUDY: MYOCARDIAL PERFUSION STRESS TEST WITH LEXISCAN Performing facility: [facility], [address] [place] [address], [address] [facility] [place], [place] [address] [facility] Provider: EMELY WORLEY PCP: Dr. Darlene TRIPLETT Supervising provider: ANTONIETA JEFFERY INDICATION: CP HISTORY: Gender: F; Age: 63 y/o ; Height: 157.48 cm; Weight: 93.5425870 kg. High Cholesterol; CP Family HX CAD; SOB Quit smoking REMOTE years ago. COMPARISON: ACCESSION NUMBER(S): [id number]; [id number]; [id number] ORDERING CLINICIAN: ALMA DELIA WORLEY TECHNIQUE: ONE [...] Electronically signed by: KENDAL GODINEZ MD Normal [facility] Basic Metabolic Panlon 01-14 Anion gap 13 mmol/L Normal -18 [facility] Comment on above: Performed By: #### C SELMADIF, PT, BMP ####[facility] [place], [place] [phone] Calcium 9.9 mg/dL Normal 8.5-10.5 [facility] Comment on above: Performed By: #### C FRANCISCO, PT, BMP ####[place] [phone] Chloride 106 mmol/L Normal 98-110 [facility] Comment on above: Performed By: #### C BCDIF, PT, BMP ####[place] [phone] CO2 25 mmol/L Normal 23-32 [facility] Comment on above: Performed By: #### C BCDIF, PT, BMP ####[place] [address] Creatinine 0.76 mg/dL Normal 0.70-1.40 [facility] Comment on above: Performed By: #### C BCDIF, PT, BMP ####[place] [phone] eGFR (non-black) mL/min/{1.73_m2} Normal >60 [facility] Comment on above: Performed By: #### C BCDIF, PT, BMP ####[place] [address] Glucose mass conc 93 mg/dL Normal 65-100 [facility] Comment on above: Performed By: #### C BCDIF, PT, BMP ####[place] [address] Potassium molar conc 3.6 mmol/L Normal 3.5-5.0 [facility] Comment on above: Performed By: #### C BCDIF, PT, BMP ####[place] [address] Sodium 144 mmol/L Normal 132-148 [facility] Comment on above: Performed By: #### C BCDIF, PT, BMP ####[place] [address] Urea nitrogen 16 mg/dL Normal 8-25 [facility] Comment on above: Performed By: #### C BCDIF, PT, BMP ####[place] [address] CBC and Differentialon 01-14 Abs Baso <0.03 Normal <0.11 [facility] Comment on above: Performed By: #### C BCDIF, PT, BMP ####[place] [phone] Abs [place] 0.66 k/uL Normal <0.87 [facility] Comment on above: Performed By: #### C BCDIF, PT, BMP ####[place] [phone] Abs Neut 5.60 k/uL Normal 1.45-7.50 [facility] Comment on above: Performed By: #### C BCDIF, PT, BMP ####[place] [phone] Basophils/100 WBC Auto (Bld) 0.1 % Normal [facility] Comment on above: Performed By: #### C BCDIF, PT, BMP ####[place] [phone] DTYPE Auto Diff Normal [facility] Comment on above: Performed By: #### C BCDIF, PT, BMP ####[place] [phone] Eosinophils 0.13 10*3/uL Normal <0.46 [facility] Comment on above: Performed By: #### C BCDIF, PT, BMP ####[address] Eosinophils/100 leukocytes 1.5 % Normal [facility] Comment on above: Performed By: #### C BCDIF, PT, BMP ####[address] Erythrocyte distribution width Auto Ratio (RBC) 13.2 % Normal 11.5-15.0 [facility] Comment on above: Performed By: #### C BCDIF, PT, BMP ####[place] [address] Erythrocytes (RBC) 4.26 10*6/uL Normal 3.90-5.20 [facility] Comment on above: Performed By: #### C FRANCISCO PT, BMP ####[place] [phone] Hematocrit (HCT) 37.0 % Normal 36.0-46.0 [facility] Comment on above: Performed By: #### C FRANCISCO PT, BMP ####[place] [address] Hemoglobin mass conc (Bld) 12.8 g/dL Normal 11.5-15.5 [facility] Comment on above: Performed By: #### C FRANCISCO PT, BMP ####[place] [phone] Lymphocytes 2.06 10*3/uL Normal 1.00-4.00 [facility] Comment on above: Performed By: #### C FRANCISCO PT, BMP ####[place] [phone] Lymphocytes/100 leukocytes 24.3 % Normal [facility] Comment on above: Performed By: #### C FRANCISCO PT, BMP ####[address] MCH 30.0 pG Normal 26.0-34.0 [facility] Comment on above: Performed By: #### C FRANCISCO PT, BMP ####[place] [phone] MCHC mass conc (RBC) 34.6 g/dL Normal 30.5-36.0 [facility] Comment on above: Performed By: #### C FRANCISCO PT, BMP ####[place] [phone] MCV 86.9 fL Normal 80.0-100.0 [facility] Comment on above: Performed By: #### C BCMARTIN PT, BMP ####[place] [phone] Monocytes/100 leukocytes 7.8 % Normal [facility] Comment on above: Performed By: #### C BCDIF, PT, BMP ####[address] [phone] Neutrophils/100 WBC Auto (Bld) 66.3 % Normal [facility] Comment on above: Performed By: #### C BCDIF, PT, BMP ####[address] [phone] Platelet mean volume (PMV) 11.0 fL Normal 9.0-12.7 [facility] Comment on above: Performed By: #### C BCJIMBOF, PT, BMP ####[address] [phone] Platelets 171 10*3/uL Normal 150-400 [facility] Comment on above: Performed By: #### C BCDIF, PT, BMP ####[address] [phone] WBC (Leukocytes) 8.46 10*3/uL Normal 3.70-11.00 [facility] Comment on above: Performed By: #### C BCDIF, PT, BMP ####[address] [phone] IR LUMBAR PUNCTURE DIAGon IR LUMBAR PUNCTURE DIAG * * *Final Report* * *DATE OF EXAM: Jan 14 2017 3:38PM [facility] 7594 - IR LUMBAR PUNCTURE DIAG [...] Air Kerma: 80.0 mGyDose Area Product (DAP): 10712.9 mGy*eb6Gjpwvd time: 2:36 min:secRESULTS:Post-Pro cedure: A) Conclusion: The patient was transferred to the Radiology Recovery Room in stable condition and observed for approximately 60 minutes prior to discharge.B) Significant Patient Complication: None If other, explain:C) Complications During The Procedure: None if other, explain:IMPRESSION: Status post fluoroscopic-guided lumbar punctureStaff Physician: Brooke Abbott M.D. was present for the entire procedure.Mental Health Specialist: NoneTranscriptionist: MINAL Transcribe Date/Time: Jan 14 2017 5:55PDictated by : BROOKE ABBOTT MDThis examination was interpreted and the report reviewed and electronically signed by: BROOKE ABBOTT MD on Jan 14 2017 5:57PM [facility] IR XR FLUORO GUIDE SPINE INJ on 01-14-2017 IR XR FLUORO GUIDE SPINE INJ * * *Final Report* * *DATE OF EXAM: Jan 14 2017 3:38PM [facility] [id number] - IR XR FLUORO GUIDE SPINE [...] Air Kerma: 80.0 mGyDose Area Product (DAP): 88920.9 mGy*gs7Smbmls time: 2:36 min:secRESULTS:Post-Pro cedure: A) Conclusion: The patient was transferred to the Radiology Recovery Room in stable condition and observed for approximately 60 minutes prior to discharge.B) Significant Patient Complication: None If other, explain:C) Complications During The Procedure: None if other, explain:IMPRESSION: Status post fluoroscopic-guided lumbar punctureStaff Physician: Brooke Abbott M.D. was present for the entire procedure.Mental Health Specialist: NoneTranscriptionist: MINAL Transcribe Date/Time: Jan 14 2017 5:55PDictated by : BROOKE ABBOTT MDThis examination was interpreted and the report reviewed and electronically signed by: BROOKE ABBOTT MD on Jan 14 2017 5:57PM EST Normal [facility] NURSING PROGon 01-14-2017 NURSING PROG HNO ID: [id number]: Dipti Melton (Rn) ASH Easonervice: RadiologyAuthor Type: Registered NurseType: Nursing Progress NoteFiled: 01/14/2017 4:31 PMNote Text:Patient s/p lumbar puncture. Band aid to back dry and intact. Patientmonitored x 1 hour post puncture. Patient denies headache, dizziness,lightheadedne ss or pain. VS taken: pulse=80, resp=16, aw=174/85 and pulseox=96% on room air. Patient ambulatory gait steady. Discharged withfamily member and has instructions. Normal [facility] Protimeon 01-14-2017 INR Coag RelTime (Bld) 1.0 {INR} Normal 0.9-1.3 [facility] Comment on above: Result Comment: Maggie min K Antagonist (VKA) Therapeutic Range: INR 2 to 3 (Target INR of 2.5)Note: For patients treated with VKA drugs, such as warfarin, the [employer] 2012 Guideline recommends [...] 2.5 to 3.5 (target INR of 3).Judy GH, et al. Chest 2012, 141:7S-47SNishimura RA, et al. [facility] 2017, 70: 252-289 Performed By: #### C BCDIF, PT, BMP ####[facility] [place], [place] [phone] PT Sec 10.1 sec Normal 9.7-13.0 [facility] Comment on above: Performed By: #### C BCDIF, PT, BMP ####[place] [id number] [place], [place] [phone] Vital Signs Date Time Vital Sign Value Performing Clinician Facility 05-12-2023 12:57-0500 Body height 154.9 cm Tello Triplett MD Work Phone: [facility] 05-12-2023 12:57-0500 Body mass index (BMI) [Ratio] 34.96 kg/m2 Tello Triplett MD Work Phone: [facility] 05-12-2023 12:57-0500 Body weight 83.92 kg Tello Triplett MD Work Phone: [facility] 05-12-2023 12:57-0500 Diastolic blood pressure 70 mm[Hg] Tello Triplett MD Work Phone: [facility] 05-12-2023 12:57-0500 Heart rate 83 /min Tello Triplett MD Work Phone: [facility] 05-12-2023 12:57-0500 SaO2% (BldA) [Mass fraction] 97 % Tello Triplett MD Work Phone: [facility] 05-12-2023 12:57-0500 Systolic blood pressure 126 mm[Hg] Tello Triplett MD Work Phone: [facility] 09-08-2021 10:40-0400 Body height 156.21 cm Ashutosh Juarez Other [facility] Other 09-08-2021 10:40-0400 Body mass index (BMI) [Ratio] 37.55 kg/m2 Ashutosh Juarez Other [facility] Other 09-08-2021 10:40-0400 Body weight 91.63 kg Ashutosh Juarez Other [facility] Other 07-07-2021 14:00-0400 Body height 156.21 cm Ashutosh Juarez Other [facility] Other 07-07-2021 14:00-0400 Body mass index (BMI) [Ratio] 38.47 kg/m2 Ashutosh Juarez Other [facility] Other 07-07-2021 14:00-0400 Body weight 93.9 kg Ashutosh Juarez Other [facility] Other 05-14-2021 17:00-0500 Body height 156.21 cm Ashutosh Jaurez Other [facility] Other 05-14-2021 17:00-0500 Body mass index (BMI) [Ratio] 38.47 kg/m2 Ashutosh Juarez Other [facility] Other 05-14-2021 17:00-0500 Body weight 93.9 kg Ashutosh Juarez Other [facility] Other 03-26-2021 16:20-0500 Body height 156.21 cm Ashutosh Juarez Other [facility] Other 03-26-2021 16:20-0500 Body mass index (BMI) [Ratio] 38.47 kg/m2 Ashutosh Juarez Other [facility] Other 03-26-2021 16:20-0500 Body weight 93.9 kg Ashutosh Juarez Other [facility] Other Encounters Encounter Date Encounter Type Care Provider Facility Start: 08-29-2023 End: 08-29-2023 ambulatory TON WHEELER Not Available Start: 08-10-2023 End: 08-10-2023 ambulatory TELLO TRIPLETT Not Available Start: 06-07-2023 End: 06-07-2023 ambulatory SURESH JAIMES Not Available Start: 05-24-2023 End: 05-24-2023 ambulatory SURESH JAIMES Not Available Start: 05-12-2023 Bamboo flowsheet Tello [...] intervertebral disc; Rotator cuff tendinitis, right Start: 05-12-2023 End: 05-12-2023 ambulatory TELLO TRIPLETT Not Available Start: 05-11-2023 Refill Tello Triplett MD Work [...] Facility:[facility] Start: 04-20-2022 ambulatory Rick MONTAÑO Facility : [facility] Start: 04-19-2022 End: 04-19-[address] JERROD RUBI . Facility:[facility] Start: 01-12-2022 End: 01-13-[address] ISABELLE ALVARES Facility:[facility] Start: 09-08-2021 End: 09-08-2021 ambulatory Ashutosh Juarez Other [facility] Other Start: 09-08-2021 Postop follow up vis it related to original px Ashutosh Juarez [facility] Start: 07-07-2021 End: 07-07-2021 ambulatory Ashutosh Juarez Other [facility] Other Start: 07-07-2021 Postop follow up vis it related to original px Ashutosh Juarez [facility] Start: 06-08-2021 Admission to [facility] Ashutosh Juarez [facility] Start: 06-08-2021 End: 06-09-2021 ambulatory Tello Triplett [facility] Other Start: 06-04-2021 End: 06-04-2021 ambulatory Ashutosh E Juarez Facility:[facility] Start: 05-25-2021 End: 05-25-2021 ambulatory Ashutosh E Juarez Facility:[facility] Start: 05-14-2021 End: 05-14-2021 ambulatory Ashutosh Juarez Other [facility] Other Start: 05-14-2021 Office outpatient vi sit 40 minutes Ashutosh Juarez [facility] Start: 04-10-2021 End: 04-10-2021 ambulatory Ashutosh Juarez Other [facility] Other Start: 04-10-2021 Telephone encounter Ashutosh Juarez [facility] Start: 03-26-2021 End: 03-26-2021 ambulatory Ashutosh Juarez Other [facility] Other Start: 03-26-2021 Follow-up encounter Ashutosh Juarez [facility] Start: 02-11-2021 End: 02-12-2021 ambulatory Physician Unlisted Facility:[facility] Start: 01-14-2017 Ambulatory KINJAL Pierce (MIKY) [facility] Procedures Date Procedure Procedure Detail Performing [...] screening for protein Diabetes: Urine Protein Screening [facility] Start: 02-08-2024 Medicare Annual Well ness (AWV) Medicare Annual Wellness (AWV) [facility] Start: 08-29-2023 End: 08-29-2023 Patient encounter procedure 08/29/2023 2:00 PM EDT Office Visit [facility] [address] [place] [id number] Ton Wheeler DO [address] [place] [address] [facility] Start: 08-10-2023 End: 08-10-2023 Patient encounter procedure 08/10/2023 1:15 PM EDT Office Visit [facility] [address] [facility] [address] [place] [address] Tello Triplett MD [address] [facility] [address] [place] [address] [facility] Start: 07-05-2023 Hemoglobin A1c measurement Diabetes: Hemoglobin A1C [facility] Start: 05-12-2023 End: 05-12-2023 Patient encounter procedure [facility] Comment on above: Arrived Start: 05-07-2023 Screening for malign ant neoplasm of breast Mammogram [facility] Start: 02-12-2023 Screening for malign ant neoplasm of colon Colonoscopy [facility] Start: 1955 Screening for malign ant neoplasm of colon [facility] Immunizations Immunization Date Immunization Notes Care Provider Fa [facility] 12-28-2022 Influenza, Seasonal, Quadrivalent, Adjuvanted Tello Triplett MD Work Phone: [facility] 10-25-2022 tetanus toxoid, redu breana diphtheria toxoid, and acellular pertussis vaccine, adsorbed Tello Triplett MD Work Phone: [facility] 08-04-2022 zoster vaccine recombinant D kay Triplett MD Work Phone: [facility] 04-19-2022 zoster vaccine recombinant Darlene Triplett MD Work Phone: [facility] 02-22-2022 Influenza, High-dose Seasonal, Quadrivalent, Preservative Free Tello Triplett MD Work Phone: [facility] 02-03-2022 Pneumococcal Conjuga te PCV 20 Tello Triplett MD Work Phone: [facility] 02-01-2022 pneumococcal polysaccharide vaccine, 23 valent Tello Triplett MD Work Phone: [facility] 12-16-2020 influenza, injectabl e, quadrivalent, preservative free Tello Triplett MD Work Phone: [facility] Payers Date Payer Category Payer Medicare AETNA MEDICARE A DVANTAGE AETNA MEDICARE REPLACEMENT [id number] 2022-Present [address] [place] [address] [id number] 2021 Self-pay 2021 Unknown [id number] 2021 Unknown 1959 Private Health Insurance [id number] 1958 Self-pay [id number] 1955 Unknown [id number] 2..840.1.052329.3.579.2. 196 1955 Unknown [id number] 2.16.840.1.633814.3.579.2. 1955 Unknown [id number] 2.16.840.1.666945.3.579.2. 727 1955 Unknown [id number] 2.16840.1.483842.3.579.2. 593 1955 Unknown [id number] 2.16.840.1.363587.3.579.2. 593 1956 Unknown [id number] 2.16.840.1.547773.3.579.2. 593 1955 Unknown [id number] 2.16.840.1.588632.3.579.2. 593 1955 Unknown [id number] 2.16.840.1.280592.3.579.2. 1259 1956 Unknown [id number] 2.16.840.1.959249.3.579.2. 1259 1956 Unknown [id number] 2.16.840.1.383520.3.579.2. 1259 1956 Unknown [id number] 2.16.840.1.118669.3.579.2. 1259 1955 Unknown [id number] 2.16.840.1.982599.3.579.2. 1259 1955 Unknown [id number] 2.16.840.1.654099.3.579.2. 1259 Unknown [id number] 2.16.840.1.426105.3.579.2. 531 Unknown [id number] 2.16.840.1.591855.3.579.2. 531 Unknown [id number] 2.16.840.1.749614.3.579.2. 531 Social History Date Type Detail Facility Start: 02-07-2023 End: 05-12-2023 Sex Assigned At [facility] [employer] Other Start: 11-02-2022 Tobacco smoking status [facility] Ex-smoker [facility] End: 03-28-2004 History of tobacco use Current smoker [facility] End: 03-28-2004 History of tobacco use Cigarette Smoker [facility] Start: 11-02-2022 Tobacco use and exposure Smokeless tobacco non-user [facility] Start: 02-07-2023 End: 05-12-2023 Alcohol intake Ex-drinker (finding) [facility] Start: 02-07-2023 End: 05-12-2023 History of Social function [facility] Start: 1955 Sex Assigned At Not on file N [facility] Clinical Notes 03-26-2021 to 05-12-2023 Tello Triplett [...] 2 CAPSULES DAILY 180 capsule 3 HYDROcodone-acetaminophen (Gays) 10-325 MG tablet Take 1 tablet by [...] A DAY 180 tablet 3 [DISCONTINUED] HYDROcodone-acetaminophen (Gays) 10-325 MG tablet Take 1 tablet by [...] complication, without long-term current use of insulin ([facility]) 02/07/2023 Umbilical hernia Past Surgical History: Procedure Laterality Date APPENDECTOMY BREAST SURGERY REDUCTION CHOLECYSTECTOMY GASTRIC BYPASS 2018 ANNE EN Y HERNIA REPAIR SEPTOPLASTY SINUS SURGERY 2017 [facility] SPINE SURGERY 2021 DR JUAREZ TUBAL LIGATION [...] of diabetes for children. HbA1c performed on [employer] platform. Effective 03/15/23 a change in test [...] LDL-C. Quan SS et al. ANTHONY. 2013;310(19): 5130-6043 (http://education.QuestDiagnosti Tutum.com/faq/RGB786) CHOL/HDLC RATIO 04/05/2023 3.3 <5.0 (calc) Final [...] a test for HCV RNA (test code 32865) is suggested. For additional information please refer to http://education.Vision Critical/faq/CJD01b1 (This link is being provided for informational/ [...] Controlled Med Review. documented in this encounter [facility] 05-11-2023 Telephone encount er Note Already sent [facility] 05-11-2023 Miscellaneous Notes Formattin g of this note might be different from the original. Already sent documented in this encounter [facility] 05-11-2023 Telephone encount er Note OARRS reviewed, Rx sent into patient's pharmacy. [facility] 05-11-2023 Miscellaneous Notes Formattin g of this note might be different from the original. OARRS reviewed, Rx sent into patient's pharmacy. documented in this encounter [facility] 01-13-2022 Note EXAMINATION: XR CHES T 2 [...] by: DARLYN CLEMONS Date: 2022-01-13 06:52 [facility] 09-08-2021 Evaluation note Encounter Date Diagnosis Assessment Notes Aug, Spinal stenosis, lumbar region with neurogenic claudication (ICD-10 - M48.062) Patient is now 3 months status post lumbar decompression and is feeling very good. She has no leg pain, her back feels good, she is happy with her operative result. I will see her again in the future on an as-needed basis. [facility] Other 04-12-2022 Evaluation note* Encounter Date Diagnosis [...] for her to return to work mid-July [facility] Other 02-17-2022 Evaluation note* Encounter Date Diagnosis [...] patient desires to proceed with surgical intervention. [facility] Other 01-14-2022 Evaluation note* Encounter Date Diagnosis Assessment Notes Treatment Notes Treatment Clinical Notes Mar, Spondylolisthesis of lumbar region (ICD-10 - M43.16) Mar, Post menopausal synd adrianne (ICD-10 - Z78.0) [facility] Other 12-30-2021 Evaluation note* Encounter Date Diagnosis Assessment Notes Treatment Notes Treatment Clinical Notes Feb, Other The patient did not have an MRI with her which was done recently for me to evaluate. Given the fact that she is feeling well with no MRI I believe that we should not have an office visit we will reschedule this visit for another time [facility] Other evaluation noteNo InformationNort Contour Other evaluation note* Diagnosis Lumbar disc disease with radiculopathy [facility] Diagnosis Lumbar disc disease with radiculopathy documented in this encounter [facility]* Diagnosis Benign essential hypertension (CMS/HCC)- Primary Essential hypertension, benign Spinal stenosis of lumbar region without neurogenic claudication Degeneration of lumbar or lumbosacral intervertebral disc Rotator cuff tendinitis, right documented in this encounter [facility] HealthcareHistory general Narrative - Reported* Type Description Date Medical History Esophageal reflux Medical History diabetes mallitus Surgical History hysteroscopy Surgical History appendectomy Surgical History D&C Surgical History tubal ligation Surgical History cholecystectomy Surgical History Gastric Sleeve Hospitalization History See Above [facility] Other History general Narrative - Reported* Type Description Date Medical History Esophageal reflux Medical History diabetes mallitus Surgical History hysteroscopy Surgical History appendectomy Surgical History D&C Surgical History tubal ligation Surgical History cholecystectomy Surgical History Gastric Sleeve Surgical History Lumbar Decompression-Doctor Bra un Hospitalization History See Above [facility] Other reason for referral (narrative)* Consultation (Routine) - Pending Review Specialty Diagnoses / Procedures Referred By Contact Referred To Contact Orthopaedic Surgery Diagnoses Rotator cuff tendinitis, right Tello Triplett MD [address] [facility] [address] [place] [address] Oriana Wright NP [address] [facility] [address] [place] [address] Referral ID Status Reason Start Date Expiration Date Visits Requested Visits Authorized [id number] Pending Review Specialty Services Required 05/12/2023 11/08/2023 1 1 [facility] Summary Purpose Family History No Family [...] disease with radiculopathy Isabelle Alvares PA [address] [place] [address] Referral ID Status Reason Start Date Expiration Date Visits Re quested Visits Authorized [id number] Closed 1 1 Additional Source Comments INFORMATION SOURCE (unrecogn ized section and content) DATE CREATED AUTHOR 09/20/2017 [facility] DATE CREATED AUTHOR AUTHOR'S ORGANIZ ATION 08/10/2019 [facility] DATE CREATED AUTHOR AUTHOR'S ORGANIZ ATION 02/12/2021 [facility] DATE CREATED AUTHOR AUTHOR'S ORGANIZ ATION 05/01/2022 [facility] DATE CREATED AUTHOR AUTHOR'S ORGANIZ ATION 05/14/2022 [facility] DATE CREATED AUTHOR AUTHOR'S ORGANIZ ATION 08/11/2022 [facility] DATE CREATED AUTHOR AUTHOR'S ORGANIZ ATION 08/30/2023 [facility] EPIC REASON FOR VISIT (unrecogniz ed section and content) Reason Onset Date Comments Med Refill 05/11/2023 HYDROCODONE TO Kaela BHATT IN [place] Reason Onset Date Comments Med Refill 05/10/2023 Hydorocodone - Kaela bhatt [place] Reason Comments Follow-up Pain med Hypertension Results labs Shoulder Pain Pt states she has mendoza d ongoing left shoulder pain over the last few months her right shoulder has really started bothering her she has seen ortho for left shoulder in past Care Teams (unrecognized sec tion and content) 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 Helper Relationship Specialty Start Date End Date Tello Triplett MD [address] [facility] [address] [place] [address] PCP - General Internal Medicine 08/03/22 Tello Triplett MD [address] [facility] [address] [place] [address] PCP - [employer] 10/26/22 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 Helper Relationship Specialty Start Date End Date Tello Triplett MD [address] [facility] [place] [address] PCP - General Internal Medicine 08/03/22 Tello Triplett MD [address] [facility] [address] [place] [address] PCP - [employer] 10/26/22 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 Helper Relationship Specialty Start Date End Date Tello Triplett MD [address] [facility] [address] [place] [address] PCP - General Internal Medicine 08/03/22 Tello Triplett MD [address] [facility] [address] [place] [address] [facility] 10/26/22 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 Helper Relationship Specialty Start Date End Date Tello Triplett MD [address] [facility] [address] [place] [address] PCP - General Internal Medicine 08/03/22 Tello Triplett MD [address] [facility] [address] [place] [address] PCP - [facility] 10/26/22 FOR RECORDS PERTAINING TO PATIENTS WHO [...] BE BASED ON THE PRIMARY CLINICAL RECORDS. [employer] [facility]. provides no warranty or guarantee of the accuracy or completeness of information in this document.
--- NOTE | 2023-09-15 13:44 | XR_ITS ---
[address] [address] Patient Name: LUIS CLEVELAND MRN: [id number] date: 1955 Sex: F Assigned Patient Location: Current Patient Location: Accession/Order Number: [id number] Exam Date: 09/15/2023 14:05 Report Date: 09/16/2023 04:52 At the request of: RON CARBAJAL Procedure: XR DEXA axial skeleton EXAMINATION: XR DEXA axial skeleton HISTORY: Postmenopausal State Z78.0 COMPARISON: DEXA bone densitometry 05/07/2022 TECHNIQUE: Dual-energy X-ray absorptiometry (DXA) was performed. FINDINGS: FOREARM ANALYSIS: Average bone mineral density is 0.583 g/cm2. T-score (standard deviation relative to young adult mean): -1.8 . Not previously evaluated. HIP ANALYSIS: Lowest bone mineral density is within the right femoral neck, 0.799 g/cm2. T-score (standard deviation relative to young adult mean): -1.7 . +0.2% change since prior study. XR/XR DEXA axial skeleton IMPRESSION: World Aman Organization Classification: Osteopenia - Moderate Fracture Risk FRAX: Could not be calculated. Pharmacologic treatment recommendations * No uniform recommendation applies to all patients. Management plans must be individualized. * Consider initiating pharmacologic treatment in postmenopausal women and men >= 50 years of age who have the following: Primary fracture prevention: * T-score <= - 2.5 at the femoral neck, total hip, lumbar spine, 33% radius (some uncertainty with existing data) by DXA. * Low bone mass (osteopenia: T-score between - 1.0 and - 2.5) at the femoral neck or total hip by DXA with a 10-year hip fracture risk >= 3% or a 10-year major osteoporosis-related fracture risk >= 20% (i.e., clinical vertebral, hip, forearm, or proximal humerus) based on the US-adapted FRAXregistered model. Secondary fracture prevention: * Fracture of the hip or vertebra regardless of BMD [4, 5]. * Fracture of proximal humerus, pelvis, or distal forearm in persons with low bone mass (osteopenia: T-score between - 1.0 and - 2.5). The decision to treat should be individualized in persons with a fracture of the proximal humerus, pelvis, or distal forearm who do not have osteopenia or low BMD [12, 13]. Vaughn MS, Bandar SL, Bull KL, Kandis EM, Carlito KG, AJ, Rah ES. The clinician's guide to prevention and treatment of osteoporosis. Osteoporos Int. 2021;33(10):2618-9804. doi: 10.1007/c59510-648-46951-a. Epub 2021Jul 23. Erratum in: Osteoporos Int. 2021Oct 22;: PMID: 58015719; PMCID: [id number]. Electronically authenticated by: DARLYN CLEMONS Date: 09/16/2023 04:52
== END 2023-09-15 12:55 | disposition home or self-care (01) ==
LOC: US 12:54
PROVIDERS: PCP Internal Medicine; Visit Provider Obstetrics & Gynecology
DX: R10.2 Pelvic and perineal pain (principal); Z78.0 Asymptomatic menopausal state; M85.80 Other specified disorders of bone density and structure, unspecified site
CPT/HCPCS: 76830; 76856; 77080

== ENCOUNTER 2024-05-22 11:32 | Outpatient (OUT) | payer MEDICARE, SELFPAY ==
--- NOTE | 2024-05-22 11:36 | MM_ITS ---
Patient Name: LUIS CLEVELAND MR#: [id number] : 1955 Exam Date: 05/22/2024 Ordering Doctor: DR Ton Wheeler . RADIOLOGY REPORT PROCEDURE: MM TOMOSYNTHESIS SCREENING BI COMPARISON: MM TOMOSYNTHESIS SCREENING BI, 05/13/2023. MG MAMM SCREEN 3D KANE CAD, 05/07/2022. MG MAMM SCREEN 3D KANE CAD, 03/17/2021. MG MAMM KANE SCRN W CAD DIG, 01/15/2013. INDICATIONS: Screening Calculator Name NCI Breast Cancer Risk Assessment Tool 5 Year Breast Cancer Risk 1.70% Lifetime Breast Cancer Risk 5.70% Personal Breast Cancer No Personal Ovarian Cancer No Treatments None Family Cancers Mother with bladder cancer at age 83; Uncle-maternal with hodgkins cancer at age 28. LOCATION: [facility] BREAST COMPOSITION: There are scattered areas of fibroglandular density. FINDINGS: RIGHT BREAST: No significant suspicious finding. Benign-appearing calcifications are redemonstrated appeared benign-appearing lymph nodes are noted along the chest wall. LEFT BREAST: No significant suspicious finding. Benign-appearing calcifications are redemonstrated. Benign-appearing lymph nodes are noted along the chest wall appeared DIAGNOSTIC CATEGORY 2--BENIGN FINDING: RECOMMENDATIONS: ROUTINE MAMMOGRAM AND CLINICAL EVALUATION IN 12 MONTHS. PLEASE NOTE: A NORMAL MAMMOGRAM DOES NOT EXCLUDE THE POSSIBILITY OF BREAST CANCER. A CLINICALLY SUSPICIOUS PALPABLE LUMP SHOULD BE BIOPSIED. Dictated by: Van Wheeler MD on 05/22/2024 at 14:24 Approved by: Van Wheeler MD on 05/22/2024 at 14:28
--- OUTSIDE RECORDS SUMMARY | 2024-05-22 11:36 | XMS_ITS | CCD ---
Author Organization [facility] Inform ion [facility] Care Team Providers Care Cognos Name Role Phone KINJAL TRAN (MIKY) Unavailable Unavaila ble KINJAL TRAN (MIKY) Unavailable Unavaila ble Unlisted, Physician Attending Unavailable Unlisted, Physician Admitting Unavailable NELLA FINE, MD TELLO LYONS Consulting Unav ailable NELLA FINE, MD TELLO LYONS Primary Care Unav ailable Ashutosh Juarez Unavailable Ashutosh Juarez Attending Unavailable Ashutosh Jaurez Admitting Unavailable Tello Triplett Primary Care Unavailable Ashutosh Juarez Attending Unavailable Ashutosh Juarez Admitting Unavailable Tello Triplett Primary Care Unavailable Tello Triplett Primary Care Unavailable Ashutosh Juarez Admitting Unavailable Ashutosh Juarez Attending Unavailable SABRA, Rick Restrepo Attending Unavailable NILDakotah, Rick Restrepo Attending Unavailable Jerrod RUBI Referring Unavailable HEMMER, DR ISABELLE Ba Admitting Unavailable HEMMER, DR ISABELLE Ba Attending Unavailable NELLA, DR LOPEZ Primary Care Unavailable DEONTE, DR DARLYN Restrepo Consulting Unavailable HEMMER, DR ISABELLE Ba Consulting Unavailable KARASIKaela ., DR ELDER Admitting Unavailabl e KARASIKaela ., DR ELDER Consulting Unavailabl e KARSUZETTE ., DR ELDER Attending Unavailabl e NELLA, DR LOPEZ Primary Care Unavailable Juno Whatley Consulting Unavailable DEONTE, DR DARLYN Restrepo Consulting Unavailable NELLA, DR LOPEZ Admitting Unavailable NELLA, DR LOPEZ Primary Care Unavailable NELLA, DR LOPEZ Consulting Unavailable NELLA, DR LOPEZ Attending Unavailable ZIEBKELLY, DR DARLYN Restrepo Consulting Unavailable KARASIKaela ., DR ELDER Admitting Unavailabl e KARASIKaela ., DR ELDER Consulting Unavailabl e KARSUZETTE ., DR ELDER Attending Unavailabl e NELLA, DR LOPEZ Primary Care Unavailable Tello Triplett MD Primary Care Provider Tello Triplett MD Unavailable Tello Triplett MD Unavailable TELLO TRIPLETT Attending Unavailable SURESH JAIMES Attending Unavailable SURESH JAIMES Attending Unavailable TELLO TRIPLETT Attending Unavailable TON WHEELER Attending Unavailable TON WHEELER Attending Unavailable TELLO TRIPLETT Attending Unavailable TELLO TRIPLETT Attending Unavailable SURESH JAIMES Attending Unavailable ROBINSON PAEZ Attending UnavailTELLO Mata Referring Unavailable TELLO TRIPLETT Primary Care Unavailable ROBINSON PAEZ Attending UnavailTELLO Mata Referring Unavailable TELLO TRIPLETT Primary Care Unavailable ROBINSON PAEZ Attending UnavailTELLO Mata Referring Unavailable TELLO TRIPLETT Primary Care Unavailable ROBINSON PAEZ Referring UnavailTELLO Mata Primary Care Unavailable ROBINSON PAEZ Attending TELLO Sykes Referring Unavailable TELLO TRIPLETT Primary Care Unavailable CYNTHIA KRUEGER Attending Unavailable TELLO TRIPLETT Referring Unavailable TELLO TRIPLETT Primary Care Unavailable Medications Current Medications Medication Drug Class(es) Dates Sig (Normalized) Sig (Original) alendronic acid 70 mg oral tablet (16 sources) Bisphosphonate Start: 08-29-2023 End: 08-28-2024 take 1 tablet by mouth in the morning alendronate (Fosamax) 70 MG tablet Indications: Postmenopausal state , Adult idiopathic generalized osteoporosis (CMS/HCC) Take 1 tablet (70 mg) by mouth every 7 (seven) days Take in the morning with a full glass of water, on an empty stomach, and do not take anything else by mouth or lie down for the next 30 min. 4 tablet 11 08/29/2023 08/28/2024 Active Start: 04-08-2023 alendronate (F osamax) 35 MG tablet Indications: Asymptomatic menopausal state Take one pill weekly 4 tablet 3 04/08/2023 Active atorvastatin 20 mg oral tablet (16 sources) HMG-CoA Reductase Inhibitor Start: 11-29-2023 atorvastatin (Lipito r) 20 MG tablet Indications: Mixed hyperlipidemia (CMS/HCC) TAKE 1 TABLET DAILY 100 tablet 3 11/29/2023 Active Start: 12-20-2022 atorvastatin ( Lipitor) 20 MG tablet Indications: Mixed hyperlipidemia (CMS/HCC) TAKE 1 TABLET DAILY 90 tablet 3 12/20/2022 Active calcium carbonate 1250 mg / cholecalciferol 100 unt / vitamin k 0.04 mg chewable tablet (11 sources) Vitamin D Calcium-Vitamin D-Vitamin K 500-100-40 MG-UNT-MCG chewable tablet Chew 500 mg in the morning and 500 mg in the evening. Active chlorhexidine gluconate 1.2 mg/ml mouthwash (11 sources) Start: take 15 mL by mouth once daily in the morning chlorhexidine (Peridex) 0.12 % solution RINSE MOUTH WITH 15 MLS for 30 SECONDS every morning and evening ... (REFER TO PRESCRIPTION NOTES). 03/26/2023 Active ciprofloxacin 250 mg oral tablet (1 source) Quinolone Antimicrobial Start: End: take 1 tablet by mouth in the morning ciprofloxacin (Cipro) 250 MG tablet Indications: Acute cystitis without hematuria Take 1 tablet (250 mg) by mouth in the morning and 1 tablet (250 mg) before bedtime. Do all this for 5 days. 10 tablet 11/30/2023 12/05/2023 Active cycloSPORINE (Restasis) 0.05 % ophthalmic emulsion (11 sources) take 1 drop(s) into the eye(s) in the morning cycloSPORINE (Restasis) 0.05 % ophthalmic emulsion Administer 1 drop into affected eye(s) in the morning and 1 drop in the evening. Active FLUoxetine 20 mg oral capsule (20 sources) Serotonin Reuptake Inhibitor Start: FLUoxetine (PROzac) 20 MG capsule Indications: Major depressive disorder with current active episode, unspecified depression episode severity, unspecified whether recurrent (CMS/HCC) TAKE 2 CAPSULES DAILY 200 capsule 3 11/29/2023 Active Start: 12-20-2022 FLUoxetine (MA Ozac) 20 MG capsule Indications: Major depressive disorder with current active episode, unspecified depression episode severity, unspecified whether recurrent (CMS/HCC) TAKE 2 CAPSULES DAILY 180 capsule 3 12/20/2022 Active FLUoxetine HCl 2 0 MG (Prior Auth#:[id number]) Oral for 90 Active ibuprofen 600 mg oral tablet (11 sources) Nonsteroidal Anti-inflammatory Drug Start: 03-22-2023 take 1 tablet by mouth every six hours ibuprofen 600 MG tablet Take 1 tablet by mouth every 6 (six) hours 03/22/2023 Active ketoconazole 200 mg oral tablet (6 sources) Azole Antifungal take 1 tablet by mouth every twenty-four hours Ketoconazole 200 MG 1 tablet Orally Once a day Active nitroglycerin 0.4 mg sublingual tablet (20 sources) Nitrate Vasodilator Start: 05-23-2019 nitroglycerin (Nitrostat) 0.[address] 0.4 mg under the tongue every 5 (five) minutes if needed for chest pain. 05/23/2019 Active Nitroglycerin 0. 4 MG as directed Sublingual Not-Taking omega-3 acid ethyl esters (detention) 1000 mg oral capsule (11 sources) take 1 capsule by mouth in the morning omega-3 acid ethyl esters (Lovaza) 1 g capsule Take 2 g by mouth in the morning and 2 g in the evening. Active pantoprazole 40 mg delayed release oral tablet (20 sources) Proton Pump Inhibitor Start: take 1 tablet by mouth once daily pantoprazole (ProtoNix) 40 MG EC tablet Indications: Abnormal intestinal absorption (CMS/HCC) Take 1 tablet (40 mg) by mouth Daily Do not crush, chew, or split. 100 tablet 3 04/23/2024 Active Start: 09-01-2022 pantoprazole ( ProtoNix) 40 MG EC tablet Indications: Abnormal intestinal absorption (CMS/HCC) TAKE 1 TABLET DAILY 90 tablet 3 09/01/2022 Active Pantoprazole Sod ium 40 MG (Prior Auth#:[id number]) Oral for 90 Active potassium chloride 10 meq extended release oral tablet (20 sources) Start: 09-28-2023 take 1 tablet by mouth in the morning potassium chloride CR (Klor-Con) 10 MEQ ER tablet Indications: Mixed hyperlipidemia (CMS/HCC) Take 1 tablet (10 mEq) by mouth in the morning and 1 tablet (10 mEq) before bedtime. 90 tablet 2 09/28/2023 Active take 1 tablet by mouth in the mo rning potassium chloride CR (Klor-Con) 10 MEQ ER tablet Take 10 mEq by mouth in the morning and 10 mEq before bedtime. 0 Active 5 ml sodium chloride 9 mg/ml injection (11 sources) sodium chloride (NS) 0.9 % flush Infuse 10 mL into a venous catheter in the morning. Active tiZANidine 4 mg oral tablet (16 sources) Central alpha-2 Adrenergic Agonist Start: take 1 tablet by mouth in the morning tiZANidine (Zanaflex) 4 MG tablet Take 4 mg by mouth in the morning and 4 mg before bedtime. 01/12/2022 Active topiramate 50 mg oral tablet (16 sources) Start: topiramate 50 MG tablet Indications: Benign essential hypertension (CMS/HCC) TAKE 1 TABLET TWICE A DAY 180 tablet 3 02/14/2023 Active Completed/Discontinued Medications Medication Drug Class(es) Dates Sig (Normalized) Sig (Original) acetaminophen 325 mg / HYDROcodone bitartrate 10 mg oral tablet (20 sources) Opioid Agonist Start: 12-26-2023 End: 05-23-2024 take 1 tablet by mouth every six hours for pain HYDROcodone-acetamin ophen ([place]) 10-325 MG tablet Indications: Degeneration of lumbar or lumbosacral intervertebral disc , Spinal stenosis of lumbar region without neurogenic claudication Take 1 tablet by mouth every 6 (six) hours if needed for severe pain 120 tablet 03/26/2024 04/23/2024 Discontinued (Reorder) Start: 11-14-2023 End: 12-14-2023 take 1 tablet by mouth every six hours for pain HYDROcodone-acetaminophen ([place]vue) 10-325 MG tablet Indications: Degeneration of lumbar or lumbosacral intervertebral disc , Spinal stenosis of lumbar region without neurogenic claudication Take 1 tablet by mouth every 6 (six) hours if needed for severe pain 120 tablet 11/14/2023 12/14/2023 Active Start: 05-11-2023 End: 05-26-2023 take 1 tablet by mouth every six hours for pain HYDROcodone-acetaminophen ([place]vue) 10-325 MG tablet Indications: Lumbar disc disease with radiculopathy Take 1 tablet by mouth every 6 (six) hours if needed for severe pain for up to 15 days 60 tablet 0 05/11/2023 05/26/2023 Active HYDROcodone-Acet aminophen 5-325 MG (Schedule II Drug) (Prior Auth#:[id number]) Oral for 7 Active ferrous sulfate 325 mg oral tablet (6 sources) End: 02-20-2024 take 1 tablet by mouth at mealtime ferrous sulfate 325 (65 Fe) MG tablet Take 325 mg by mouth in the morning. Take with meals. 02/20/2024 Discontinued 1 ml methylPREDNISolone acetate 40 mg/ml injection (8 sources) Corticosteroid Start: 03-12-2024 End: 03-12-2024 methylPREDNISolone acetate (DEPO-Medrol) injection 40 mg Start: 03-12-2024 End: 03-12-2024 40 mg, Intra-articular, Once PRN Procedure, Starting on Tue03/12/24 at 2022, For 1 dose Problems Active Problems Problem Classification Problem Date Documented Da te Episodic/Chronic Administrative/social admission (2 sources) Patient encounter status; Translations: [Other specified counseling] 02-20-2024 Episodic Anxiety disorders (16 sources) Generalized anxiety disorder; Translations: [Generalized anxiety disorder] Onset: 11-02-2022 11-02-2022 Chronic Blindness and vision defects (2 sources) Myopia, bilateral; Translations: [Presbyopia] Onset: 02-08-2024 Episodic Cataract (1 source) Combined forms of age-related cataract, bilateral; Translations: [Combined forms of age-related cataract, bilateral] Onset: 02-08-2024 Chronic Diabetes mellitus with complications (9 sources) Type 2 diabetes mellitus; Translations: [Type 2 diabetes mellitus with other specified complication] Onset: 02-07-2023 02-20-2024 Chronic Diabetes mellitus without complication (10 sources) Type 2 diabetes mellitus without complication; Translations: [Type 2 diabetes mellitus without complications] Onset: 02-07-2023 02-07-2023 Chronic Disorders of lipid metabolism (20 sources) Mixed hyperlipidemia; Translations: [Mixed hyperlipidemia] Onset: 11-02-2022 Resolved: 02-07-2023 11-02-2022 Chronic Diverticulosis and diverticulitis (16 sources) Diverticulum of large intestine without hemorrhage; Translations: [Diverticulosis of large intestine without perforation or abscess without bleeding] Onset: 11-02-2022 11-02-2022 Chronic Essential hypertension (18 sources) Benign essential hypertension; Translations: [Essential (primary) hypertension] Onset: 11-02-2022 11-02-2022 Chronic Genitourinary symptoms and ill-defined conditions (16 sources) Urge incontinence of urine; Translations: [Urge incontinence] Onset: 11-02-2022 11-02-2022 Chronic Osteoarthritis (20 sources) Arthritis; Translations: [Unspecified osteoarthritis, unspecified site] [...] shoulder lesions, right shoulder] 05-12-2023 Episodic Other connective tissue disease (4 sources) Impingement syndrome of left shoulder region; Translations: [Impingement syndrome of left shoulder] 03-12-2024 Episodic Other connective tissue disease (4 sources) Impingement syndrome of right shoulder region; Translations: [Impingement syndrome of right shoulder] 03-12-2024 Episodic Other ear and sense organ disorders (16 sources) Otitis externa; Translations: [Unspecified otitis externa, unspecified ear] Onset: 11-02-2022 11-02-2022 Chronic Other eye disorders (1 source) Keratoconus, unspecified, bilateral; Translations: [Keratoconus, unspecified, bilateral] Onset: 04-05-2024 Episodic Other eye disorders (1 source) Unspecified corneal scar and opacity; Translations: [Unspecified corneal scar and opacity] Onset: 02-08-2024 Episodic Other eye disorders (1 source) Dry eye syndrome of bilateral lacrimal glands; Translations: [Dry eye syndrome of bilateral lacrimal glands] Onset: 02-08-2024 Episodic Other gastrointestinal disorders (16 sources) Abnormal intestinal absorption; Translations: [Intestinal malabsorption, unspecified] Onset: 09-01-2022 09-01-2022 Chronic Other lower respiratory disease (4 sources) Pleurodynia; Translations: [PLEURODYNIA] Onset: 08-04-2022 Episodic Other nervous system disorders (16 sources) Chronic pain; Translations: [Other chronic pain] Onset: 11-02-2022 11-02-2022 Chronic Other non-traumatic joint disorders (2 sources) Chronic pain of right upper limb; Translations: [Pain in right shoulder] 03-12-2024 Episodic Other non-traumatic joint disorders (2 sources) Chronic pain of left upper limb; Translations: [Pain in left shoulder] 03-12-2024 Episodic Other nutritional; endocrine; and metabolic disorders (16 sources) Morbid obesity; Translations: [Morbid (severe) obesity due to excess calories] Onset: 11-02-2022 11-02-2022 Chronic Other upper respiratory infections (16 sources) Sinusitis; Translations: [Chronic sinusitis, unspecified] Onset: 11-02-2022 11-02-2022 Chronic Residual codes; unclassified (16 sources) Obstructive sleep apnea syndrome; Translations: [Obstructive [...] Spondylosis; intervertebral disc disorders; other back problems (20 sources) Degeneration of lumbosacral intervertebral disc; Translations: [Other intervertebral disc degeneration, lumbosacral region] Onset: 11-02-2022 11-02-2022 Chronic Spondylosis; intervertebral disc disorders; other back problems (20 sources) Spinal stenosis, lumbar region with neurogenic [...] Encounter for preprocedural laboratory examination] Onset: 06-04-2021 Unclassified (1 source) Contact Lens Follow-up Onset: 04-05-2024 Unclassified (1 source) Diabetic Eye Exam Onset: 02-08-2024 Unclassified (1 source) Blurred Vision Onset: 10-24-2023 Viral infection (4 sources) COVID-19; Translations: [COVID-19] Onset: 01-12-2022 Past or Other Problems Problem Classification Problem Date Documented Da te Episodic/Chronic Benign neoplasm of uterus (16 sources) Uterine leiomyoma; Translations: [Leiomyoma of uterus, unspecified] Onset: 11-02-2022 11-02-2022 Episodic Diabetes mellitus without complication (16 sources) Prediabetes; Translations: [Prediabetes] Onset: 11-02-2022 Resolved: 02-07-2023 02-07-2023 Episodic Fluid and electrolyte disorders (16 sources) Hypokalemia; Translations: [Hypokalemia] Onset: 11-02-2022 11-02-2022 Episodic Genitourinary symptoms and ill-defined conditions (20 sources) Brooke hematuria; Translations: [Gross hematuria] Onset: 11-02-2022 11-02-2022 Episodic Immunizations and screening for infectious disease (1 source) Encounter for screening for human papillomavirus (HPV); Translations: [ENC SCREENING HUMAN PAPILLOMAVIRUS] Onset: 04-21-2022 Episodic Mycoses (16 sources) Pityriasis versicolor; Translations: [Pityriasis versicolor] Onset: 11-02-2022 11-02-2022 Episodic Nonspecific chest pain (1 source) Other chest pain; Translations: [OTHER CHEST PAIN] Onset: 01-15-2022 Episodic Other acquired deformities (3 sources) Spondylolisthesis, lumbar region; Translations: [M43.16 - Spondylolisthesis, lumbar region] Onset: 04-10-2021 Resolved: 05-14-2021 Episodic Other gastrointestinal disorders (16 sources) Disorder of abdomen; Translations: [Peritoneal adhesions (postprocedural) (postinfection)] Onset: 11-02-2022 11-02-2022 Episodic Other nervous system disorders (16 sources) Cerebrospinal fluid leak; Translations: [CSF leak] Onset: 11-02-2022 11-02-2022 Episodic Other screening for suspected conditions (not mental disorders or infectious disease) (20 sources) Encounter for screening for osteoporosis; Translations: [Encounter for screening mammogram for malignant neoplasm of breast] Onset: 04-19-2022 Episodic Other upper respiratory disease (16 sources) Perforation of nasal septum; Translations: [Other specified disorders of nose and nasal sinuses] Onset: 11-02-2022 11-02-2022 Episodic Results Test Name Value Interpretation Reference Range Facility No Panel Informationon 03-12 Suresh Jaimes NP 03/12/2024 8:24 PM L Inj/Asp: L subacromial bursa on 03/12/2024 8:23 PM Indications: pain Details: 20 G needle, posterior approach Medications: 40 mg methylPREDNISolone acetate 40 MG/ML Outcome: tolerated well, no immediate complications Site cleaned with isopropyl alcohol Procedure, treatment alternatives, risks and benefits explained, specific risks discussed. Consent was given by the patient. [facility] Suresh Jaimes NP 03/12/2024 8:24 PM L Inj/Asp: R subacromial bursa on 03/12/2024 8:23 PM Indications: pain Details: 20 G needle, posterior approach Medications: 40 mg methylPREDNISolone acetate 40 MG/ML Outcome: tolerated well, no immediate complications Site cleaned with isopropyl alcohol. Procedure, treatment alternatives, risks and benefits explained, specific risks discussed. Consent was given by the patient. [facility] Laboratory - Hematology and Cell countson 02-20-2024 HbA1c (Bld) [Mass fraction] 5.9 % [facility] No Panel Informationon 02-19 [facility] Urinalysis macro (dipstick) panel (U)on 11-30-2023 Bilirubin, UA Negative Negative - 4(70) +++ mg/dL [facility] Blood, UA Positive Negative - 50 Emre/mcL [facility] Glucose, UA Negative Negative - 2000(110) ++++ mg/dL [facility] Interpretation and review of laboratory results Abnormal [facility] Ketones, UA Negative Negative - 160(16) ++++ mg/dL [facility] Leukocytes, UA Moderate Negative - 500+++ Kaitlynn/mcL [facility] Nitrite, UA Negative Negative - Positive [facility] pH, UA 5.0 5 - 9 [facility] Protein, UA 3+ Negative - 1999(20) ++++ mg/dL [facility] Spec Grav, UA 1.015 1 - 1.03 [facility] Urobilinogen, UA 1.0 0.2 - 12 mg/dL [facility] XR RIBS RT PA Alberto 3 XR [...] by: DARLYN CLEMONS Date: 2022-08-05 07:20 Normal [facility] Physician Referralon 023 Physician Referral [phone] [id number] D:127 Normal [facility] MG MAMM SCREEN 3D KANE CADon 05-07-2022 MG MAMM SCREEN 3D KANE CAD Patient: LUIS BLOCK Exam Date: 05/07/2022 : 1955 Gender:F Ordering : DR JERROD RUBI . Admission #: [id number] Family : Order #: [id number] CLICK HERE TO VIEW EXAM RADIOLOGY REPORT [...] hodgkins cancer at age 29. LOCATION: [facility] BREAST COMPOSITION: Scattered areas fibroglandular [...] Whatley MD on 05/10/2022 at 07:44 Normal [facility] XR DEXA BONE DENSITYon 05-07 XR DEXA [...] by: DARLYN CLEMONS Date: 2022-05-07 13:56 Normal [facility] PAP ACOG PANEL 2: 30 to 65on 04-23-2022 . . Normal [facility] Comment on above: Result Comment: Perf ormed at: WB Performed By: #### [id number] #### [facility] [address] [place] [address] Dr. May Syed Age Gdln ACOG Testing 30-65 Normal [facility] Comment on above: Performed By: #### [id number] #### [facility] [address] [address] [address] May Syed DIAGNOSIS: Comment Normal [facility] Comment on above: Result Comment: NEGA TIVE FOR INTRAEPITHELIAL LESION OR MALIGNANCY. CELLULAR CHANGES ASSOCIATED WITH ATROPHY ARE PRESENT. Performed at: WB Performed By: #### [id number] #### [facility] [address] [place] [address] Dr. May Syed HPV Aptima Negative Normal Negative [facility] Comment on above: Result Comment: This nucleic acid amplification test detects fourteen high-risk HPV types (16,18,31,33,35,39,45,51,52,56,58,59,66,68) without differentiation. Performed at: =G Performed By: #### [id number] #### [facility] [address] [address] [address] May Syed HPV Genotype Reflex Comment Normal [facility] Comment on above: Result Comment: Crit eria not met, HPV Genotype not performed. Performed at: WB Performed By: #### [id number] #### [facility] [address] [place] [address] Dr. May Syed Methodology: Comment Normal [facility] Comment on above: Result Comment: This liquid based ThinPrep(R) pap test was screened with the use of an image guided system. Performed at: WB Performed By: #### [id number] #### [facility] [address] [place] [address] Dr. May Syed Note: Comment Normal [facility] Comment on above: Result Comment: The Pap smear is a screening test designed to aid in the detection of premalignant and malignant conditions of the uterine cervix. It is not a diagnostic procedure and should not be used as the sole means of detecting cervical cancer. Both false-positive and false-negative reports do occur. . Performed at: WB Performed By: #### [id number] #### [facility] [address] [address] [address] May Syed Performed by: Comment Normal [facility] Comment on above: Result Comment: Aniyah Monk, Rail Engineer (ASCP) Performed at: WB Performed By: #### [id number] #### [facility] [address] [place] [address] Dr. May Syed Specimen adequacy: Comment Normal [facility] Comment on above: Result Comment: Sati sfactory for evaluation. Endocervical component may not be distinguished in cases of atrophy. Performed at: WB Performed By: #### [id number] #### [facility] [address] [address] [address] May Syed Physician Referralon 023 Physician Referral [phone] [id number] D:127 Normal [facility] Glucose Poct Glucometerson 0 06-09-2021 Commemt1 Glu2: Cleaned Meter Normal [facility] Comment on above: Result Comment: PERF ORMED BY: [facility] [address] [place] [address] PATHOLOGIST PORTER BAGGAGE MARCUS VILLALOBOS M.D. Performed By: #### G LULS #### Point of Care testing , Glucose [Mass/Vol] 154 mg/dL Normal [facility] Comment on above: Result Comment: [place] om Glucose Reference Range is dependent on time and content of last meal. Glucose of more than 200 mg/dL in a nonstressed, ambulatory subject supports the diagnosis of Diabetes Mellitus. Performed By: #### G LULS #### Point of Care testing , Glucose [Mass/Vol] 135 mg/dL Normal [facility] Comment on above: Result Comment: [place] [facility] Glucose Reference Range is dependent on time and content of last meal. Glucose of more than 200 mg/dL in a nonstressed, ambulatory subject supports the diagnosis of Diabetes Mellitus. PERFORMED BY: [facility] [address] [place] [address] PATHOLOGIST PORTER BAGGAGE MARCUS VILLALOBOS M.D. Performed By: #### G LULS #### Point of Care testing , Glucose Poct Glucometerson 0 06-08-2021 Glucose [Mass/Vol] 150 mg/dL [facility] [facility] Comment on above: Result Comment: [place] om Glucose Reference Range is dependent on time and content of last meal. Glucose of more than 200 mg/dL in a nonstressed, ambulatory subject supports the diagnosis of Diabetes Mellitus. PERFORMED BY: [facility] [address] [place] [address] PATHOLOGIST PORTER BAGGAGE MARCUS VILLALOBOS M.D. Performed By: #### G LULS #### Point of Care testing , Glucose [Mass/Vol] 152 mg/dL Normal [facility] Comment on above: Result Comment: [facility] Glucose Reference Range is dependent on time and content of last meal. Glucose of more than 200 mg/dL in a nonstressed, ambulatory subject supports the diagnosis of Diabetes Mellitus. PERFORMED BY: [facility] [place] [address] PATHOLOGIST PORTER BAGGAGE MARCUS VILLALOBOS M.D. Performed By: #### G CODIE #### Point of Care testing , Cezar 06-08-2021 L --- Specimen: [id number] Received: 06/08/21 Status: CANDICE Berry Num: [id number] Spec Type: Surgical Subm Dr: Ashutosh Juarez MD Tissues: A Disc - Intervertebral/Lumbar/C ervical (LUMBAR) Procedures: HE Stain, Gross/Micro L3 Patient Age/Sex Location Account Attending Physician Luis Block 65/F 4N [id number] Ashutosh Juarez MD SPEC NUM: [id number] RECD: 06/08/21 STATUS: CANDICE BERRY NUM: [id number] ELMO: 06/08/21 DR: Ashutosh Juarez MD ENTERED: 06/08/21 [facility] DR: OLMAN TYPE: Surgical DEPT: S ORDERED: [...] Type of Fixative: 10% Neutral Buffered Formalin (SM/YJ) Microscopic Description One glass slide with H E stained material has been examined. The microscopic findings support the above pathologic diagnosis. CPT Codes 22239 Specimen: [id number] Received: 06/08/21 Status: CANDICE Berry Num: [id number] Spec Type: Surgical Subm Dr: Ashutosh Juarez MD Tissues: A Disc - Intervertebral/Lumbar/C ervical (LUMBAR) Procedures: HE Stain, Gross/Micro L3 Patient: Luis Block [id number] (Continued) Signed (signature on file) Dinorah Augustin MD 06/09/21 1138 Normal [facility] XR lumbar spine 1Von 022 XR lumbar spine 1V [facility] [place] [address] XRay Report Signed Patient: Luis Block MR#: [id number] : 1955 Acct:[id number] Age/Sex: 65 / F ADM Date: 06/08/21 Loc: [place] Room: Type: [facility] Attending Dr: Ashutosh Juarez MD Ordering Provider: [...] Hermosillo Jr., D.OErin06/08/2021 10:48 AM Dictation Location: [place] [address] Transcribed By: [facility] 06/08/21 1048 Dictated By: Devin Hermosillo Jr, DO 06/08/21 1047 Signed By: 06/08/21 1048 Normal [facility] SARS-CoV-2 (COVID-19) RNA ANGEL+probe Ql (Unsp spec) Negative Normal Negative [facility] Comment on above: Order Comment: Healt hcare Worker?: N Result Comment: Testing for SARS-CoV-2 by RT-PCR This test was developed and its performance characteristics determined by [employer] ([employer]) and validated at the [facility]. This test has not been FDA cleared [...] is terminated or revoked sooner. PERFORMED BY: [place] [address] PATHOLOGIST PORTER BAGGAGE MARCUS VILLALOBOS M.D. Performed By: #### C OVID 19 [facility] #### [address] Basic Metabolic Panelon 04-29 Calcium [Mass/Vol] 9.2 mg/dL Normal 8.2-10.2 [facility] Comment on above: Result Comment: PERF ORMED BY: [place] [address] PATHOLOGIST PORTER BAGGAGE MARCUS VILLALOBOS M.D. Performed By: #### C BC, BMP #### [facility] [address] [place] [address] [place] Chloride [Moles/Vol] 110 mmol/L Normal 95-114 [facility] Comment on above: Performed By: #### C BC, BMP #### [facility] [address] [place] [address] [place] CO2 [Moles/Vol] 22.9 mmol/L Normal 22.0-30.0 [facility] Comment on above: Performed By: #### C BC, BMP #### [address] Creatinine [Mass/Vol] 0.69 mg/dL Normal 0.44-1.03 [facility] Comment on above: Performed By: #### C BC, BMP #### [address] Estimated GFR ( Nahed > 60 Normal [facility] Comment on above: Result Comment: GFR estimated reference range: According to KDOQI guidelines, <60 ml/min/1.73m2 is sufficient to diagnose a patient with chronic kidney disease. Performed By: #### C BC, BMP #### [facility] [address] [place] [address] Estimated GFR (Non- Am > 60 Normal [facility] Comment on above: Performed By: #### C BC, BMP #### [facility] [address] [place] [address] [place] Glucose [Mass/Vol] 75 mg/dL Normal 70-100 [facility] Comment on above: Result Comment: [place] [facility] Glucose Reference Range is dependent on time and content of last meal. Glucose of more than 200 mg/dL in a nonstressed, ambulatory subject supports the diagnosis of Diabetes Mellitus. ADA recommended reference range Performed By: #### C BC, BMP #### [address] [address] [place] Potassium [Moles/Vol] 4.1 mmol/L Normal 3.5-5.1 [facility] Comment on above: Performed By: #### C BC, BMP #### [address] Sodium [Moles/Vol] 140 mmol/L Normal 136-146 [facility] Comment on above: Performed By: #### C BC, BMP #### [address] Urea nitrogen [Mass/Vol] 18 mg/dL Normal 9-23 [facility] Comment on above: Performed By: #### C SELMA, BMP #### [address] Complete Blood Count Auto Di ffon 05-25-2021 Basophils (Bld) [#/Vol] 0.0 10*3/uL Normal 0.0-0.2 [facility] Comment on above: Result Comment: PERF ORMED BY: [place] [address] PATHOLOGIST PORTER BAGGAGE MARCUS VILLALOBOS M.D. Performed By: #### C SELMA, BMP #### [address] Basophils/100 WBC (Bld) 0.6 % Normal . [facility] Comment on above: Performed By: #### C BC, BMP #### [address] Eosinophils (Bld) [#/Vol] 0.2 10*3/uL Normal 0.0-0.45 [facility] Comment on above: Performed By: #### C BC, BMP #### [address] Eosinophils/100 WBC (Bld) 2.7 % Normal . [facility] Comment on above: Performed By: #### C BC, BMP #### [address] Erythrocyte distribution width (RBC) [Ratio] 13.6 % Normal 11.9-15.3 [facility] Comment on above: Performed By: #### C BC, BMP #### [facility] [address] Hematocrit (Bld) [Volume fraction] 37.0 % Normal 34.0-46.4 [facility] Comment on above: Performed By: #### C BC, BMP #### [address] Hemoglobin (Bld) [Mass/Vol] 12.6 g/dL Normal 11.8-15.4 [facility] Comment on above: Performed By: #### C BC, BMP #### [address] Lymphocytes (Bld) [#/Vol] 2.1 10*3/uL Normal 1.00-4.8 [facility] Comment on above: Performed By: #### C BC, BMP #### [address] Lymphocytes/100 WBC (Bld) 34.3 % Normal . [facility] Comment on above: Performed By: #### C BC, BMP #### [address] MCH (RBC) [Entitic mass] 30.1 pg Normal 24.7-34.3 [facility] Comment on above: Performed By: #### C BC, BMP #### [address] MCV (RBC) [Entitic vol] 88.1 fL Normal 80-100 [facility] Comment on above: Performed By: #### C BC, BMP #### [address] Mean Corpuscular HGB Conc 34.1 g/dL Normal 32.0-35.0 [facility] Comment on above: Performed By: #### C BC, BMP #### [address] Monocytes (Bld) [#/Vol] 0.6 10*3/uL Normal 0.0-0.8 [facility] Comment on above: Performed By: #### C BC, BMP #### [facility] [address] [place] [address] [place] Monocytes/100 WBC (Bld) 10.4 % Normal . [facility] Comment on above: Performed By: #### C BC, BMP #### [facility] [address] [place] [address] [place] Neutrophils (Bld) [#/Vol] 3.2 10*3/uL Normal 1.8-7.7 [facility] Comment on above: Performed By: #### C BC, BMP #### [facility] [address] [place] [address] [place] Neutrophils/100 WBC (Bld) 52.0 % Normal . [facility] Comment on above: Performed By: #### C BC, BMP #### [facility] [address] [place] [address] [place] Nucleated RBC/100 WBC (Bld) [Ratio] 0.2 % Normal 0-0.5 [facility] Comment on above: Performed By: #### C BC, BMP #### [facility] [address] [place] [address] [place] Platelet mean volume (Bld) [Entitic vol] 9.7 fL Normal 6.3-10.7 [facility] Comment on above: Performed By: #### C BC, BMP #### [facility] [address] [place] [phone] [place] Platelets (Bld) [#/Vol] 182 10*3/uL Normal 150-450 [facility] Comment on above: Performed By: #### C BC, BMP #### [facility] [address] [place] [phone] [place] RBC (Bld) [#/Vol] 4.20 10*6/uL Normal 3.60-5.00 [facility] Comment on above: Performed By: #### C BC, BMP #### [facility] [address] [place] [address] [place] WBC (Bld) [#/Vol] 6.1 10*3/uL Normal 4.5-11.0 [facility] Comment on above: Performed By: #### C BC, TANNER #### [facility] [address] ECG 12 lead ECGon 05-25-2021 ECG 12 lead ECG [facility] [address] [place] [address] [place] [address] Electrocardiograph Report Signed Patient: Luis Block MR#: [id number] : 1955 Acct:[id number] Age/Sex: 65 / F ADM Date: 05/25/21 Loc: Room: Type: [facility] Attending Dr: Ashutosh Juarez MD Ordering Provider: [...] Kendal Godinez MD 0 05/26/21 1032 Normal [facility] MRI Spine Lumbar w/o Contras ton 02-12-2021 [...] Electronically Signed in Other Vendor System) Normal [facility] XR Spine Lumbosacral Complet kenya 02-12-2021 [...] Electronically Signed in Other Vendor System) Normal [facility] CARDIAC STRESS/REST INJE CTIONon 06-19-[address] [facility] CARDIAC STRESS/REST INJECTION Patient Name: LUIS BLOCK STUDY: MYOCARDIAL PERFUSION STRESS TEST WITH LEXISCAN Performing facility: [facility] [place], [address] [place] [address], [address], [place] [id number] [facility] Provider: EMELY WORLEY PCP: Dr. Darlene TRIPLETT Supervising provider: ANTONIETA JEFFERY INDICATION: CP HISTORY: Gender: F; Age: 63 y/o ; Height: 157.48 cm; Weight: 93.2190074 kg. High Cholesterol; CP Family HX CAD; SOB Quit smoking REMOTE years ago. COMPARISON: ACCESSION NUMBER(S): [id number]; [id number]; [id number] ORDERING CLINICIAN: ALMA DELIA WORLEY TECHNIQUE: ONE [...] evidence of attenuation artifact. IMPRESSION: Normal [facility] cardiac perfusion stress test. No evidence of ischemia or myocardial infarction by perfusion imaging. Normal left ventricular systolic function, ejection fraction 69%. No previous study available for comparison. Electronically signed by: KENDAL GODINEZ MD Normal [facility] Basic Metabolic Panlon 01-14 Anion gap 13 mmol/L Normal 9-18 [facility] Comment on above: Performed By: #### C BCDIF, PT, BMP ####[place] [address] Calcium 9.9 mg/dL Normal 8.5-10.5 [facility] Comment on above: Performed By: #### C BCDIF, PT, BMP ####[place] [address] Chloride 106 mmol/L Normal 98-110 [facility] Comment on above: Performed By: #### C BCDIF, PT, BMP ####[place] [address] CO2 25 mmol/L Normal 23-32 [facility] Comment on above: Performed By: #### C BCDIF, PT, BMP ####[place] [address] Creatinine 0.76 mg/dL Normal 0.70-1.40 [facility] Comment on above: Performed By: #### C BCDIF, PT, BMP ####[place] [phone] eGFR (non-black) mL/min/{1.73_m2} Normal >60 [facility] Comment on above: Performed By: #### C BCDIF, PT, BMP ####[place] [phone] Glucose mass conc 93 mg/dL Normal 65-100 [facility] Comment on above: Performed By: #### C BCDIF, PT, BMP ####[place] [phone] Potassium molar conc 3.6 mmol/L Normal 3.5-5.0 [facility] Comment on above: Performed By: #### C BCDIF, PT, BMP ####[place] [phone] Sodium 144 mmol/L Normal 132-148 [facility] Comment on above: Performed By: #### C BCDIF, PT, BMP ####[place] [phone] Urea nitrogen 16 mg/dL Normal 8-25 [facility] Comment on above: Performed By: #### C BCDIF, PT, BMP ####[place] [phone] CBC and Differentialon 01-14 Abs Baso <0.03 Normal <0.11 [facility] Comment on above: Performed By: #### C BCDIF, PT, BMP ####[address] Abs Shasta 0.66 k/uL Normal <0.87 [facility] Comment on above: Performed By: #### C BCDIF, PT, BMP ####[address] Abs Neut 5.60 k/uL Normal 1.45-7.50 [facility] Comment on above: Performed By: #### C BCDIF, PT, BMP ####[address] Basophils/100 WBC Auto (Bld) 0.1 % Normal [facility] Comment on above: Performed By: #### C BCDIF, PT, BMP ####[place] [phone] DTYPE Auto Diff Normal [facility] Comment on above: Performed By: #### C BCDIF, PT, BMP ####[place] [address] Eosinophils 0.13 10*3/uL Normal <0.46 [facility] Comment on above: Performed By: #### C BCMARTIN, PT, BMP ####[place] [address] Eosinophils/100 leukocytes 1.5 % Normal [facility] Comment on above: Performed By: #### C BCMARTIN, PT, BMP ####[place] [address] Erythrocyte distribution width Auto Ratio (RBC) 13.2 % Normal 11.5-15.0 [facility] Comment on above: Performed By: #### C BCMARTIN, PT, BMP ####[place] [address] Erythrocytes (RBC) 4.26 10*6/uL Normal 3.90-5.20 [facility] Comment on above: Performed By: #### C BCMARTIN, PT, BMP ####[place] [address] Hematocrit (HCT) 37.0 % Normal 36.0-46.0 [facility] Comment on above: Performed By: #### C BCMARTIN, PT, BMP ####[place] [address] Hemoglobin mass conc (Bld) 12.8 g/dL Normal 11.5-15.5 [facility] Comment on above: Performed By: #### C BCDIF, PT, BMP ####[place] [phone] Lymphocytes 2.06 10*3/uL Normal 1.00-4.00 [facility] Comment on above: Performed By: #### C BCDIF, PT, BMP ####[address] Lymphocytes/100 leukocytes 24.3 % Normal [facility] Comment on above: Performed By: #### C BCDIF, PT, BMP ####[place] [phone] MCH 30.0 pG Normal 26.0-34.0 [facility] Comment on above: Performed By: #### C BCDIF, PT, BMP ####[place] [phone] MCHC mass conc (RBC) 34.6 g/dL Normal 30.5-36.0 [facility] Comment on above: Performed By: #### C BCDIF, PT, BMP ####[place] [phone] MCV 86.9 fL Normal 80.0-100.0 [facility] Comment on above: Performed By: #### C BCDIF, PT, BMP ####[place] [phone] Monocytes/100 leukocytes 7.8 % Normal [facility] Comment on above: Performed By: #### C BCDIF, PT, BMP ####[place] [phone] Neutrophils/100 WBC Auto (Bld) 66.3 % Normal [facility] Comment on above: Performed By: #### C BCDIF, PT, BMP ####[place] [phone] Platelet mean volume (PMV) 11.0 fL Normal 9.0-12.7 [facility] Comment on above: Performed By: #### C BCDIF, PT, BMP ####[place] [phone] Platelets 171 10*3/uL Normal 150-400 [facility] Comment on above: Performed By: #### C BCDIF, PT, BMP ####[place] [phone] WBC (Leukocytes) 8.46 10*3/uL Normal 3.70-11.00 [facility] Comment on above: Performed By: #### C BCDIF, PT, BMP ####[place] [phone] IR LUMBAR PUNCTURE DIAGon IR LUMBAR PUNCTURE DIAG * * *Final Report* * *DATE OF EXAM: Jan 14 2017 3:38PM NICOLE 7594 - IR LUMBAR PUNCTURE DIAG / [...] Air Kerma: 80.0 mGyDose Area Product (DAP): 58296.9 mGy*wb2Jfbjrw time: 2:36 min:secRESULTS:Post-Pro cedure: A) Conclusion: The patient was transferred to the Radiology Recovery Room in stable condition and observed for approximately 60 minutes prior to discharge.B) Significant Patient Complication: None If other, explain:C) Complications During The Procedure: None if other, explain:IMPRESSION: Status post fluoroscopic-guided lumbar punctureStaff Physician: Brooke Abbott M.D. was present for the entire procedure.Photographer Finish: NoneTranscriptionist: MINAL Transcribe Date/Time: Jan 14 2017 5:55PDictated by : BROOKE ABBOTT MDThivictoriano examination was interpreted and the report reviewed and electronically signed by: BROOKE ABBOTT MD on Jan 14 2017 5:57PM [facility] IR XR FLUORO GUIDE SPINE INJ on 01-14-2017 IR XR FLUORO GUIDE SPINE INJ * * *Final Report* * *DATE OF EXAM: Jan 14 2017 3:38PM A 0939 - IR XR FLUORO GUIDE SPINE [...] Air Kerma: 80.0 mGyDose Area Product (DAP): 01117.9 mGy*wu3Flyaiv time: 2:36 min:secRESULTS:Post-Pro cedure: A) Conclusion: The patient was transferred to the Radiology Recovery Room in stable condition and observed for approximately 60 minutes prior to discharge.B) Significant Patient Complication: None If other, explain:C) Complications During The Procedure: None if other, explain:IMPRESSION: Status post fluoroscopic-guided lumbar punctureStaff Physician: Brooke Abbott M.D. was present for the entire procedure.Photographer Finish: NoneTranscriptionist: MINAL Transcribe Date/Time: Jan 14 2017 5:55PDictated by : BROOKE ABBOTT MDThivictoriano examination was interpreted and the report reviewed and electronically signed by: BROOKE ABBOTT MD on Jan 14 2017 5:57PM EST Normal [facility] NURSING PROGon 01-14-2017 NURSING PROG HNO ID: [id number]: Dipti Melton (Rn) ASH Easonervice: RadiologyAuthor Type: Registered NurseType: Nursing Progress NoteFiled: 01/14/2017 4:31 PMNote Text:Patient s/p lumbar puncture. Band aid to back dry and intact. Patientmonitored x 1 hour post puncture. Patient denies headache, dizziness,lightheadedne ss or pain. VS taken: pulse=80, resp=16, ed=958/85 and pulseox=96% on room air. Patient ambulatory gait steady. Discharged withfamily member and has instructions. Normal [facility] Protimeon 01-14-2017 INR Coag RelTime (Bld) 1.0 {INR} Normal 0.9-1.3 [facility] Comment on above: Result Comment: Maggie min K Antagonist (VKA) Therapeutic Range: INR 2 to 3 (Target INR of 2.5)Note: For patients treated with VKA drugs, such as warfarin, the [place] [employer] 2012 Guideline recommends [...] of 3).Judy SUTTON, et al. Chest 2012, 141:7S-47SOniel WOLF, et al. [facility] 2017, 70: 252-289 Performed By: #### C BCDIF, PT, BMP ####[place] [id number] [place], [place] [phone] PT Sec 10.1 sec Normal 9.7-13.0 [facility] Comment on above: Performed By: #### C BCDIF, PT, BMP ####[address] [phone] Vital Signs Date Time Vital Sign Value Performing Clinician Facility 02-20-2024 14:05-0500 Body height 154.9 cm Tello Triplett MD Work Phone: [facility] 02-20-2024 14:05-0500 Body mass index (BMI) [Ratio] 34.01 kg/m2 Tello Triplett MD Work Phone: [facility] 02-20-2024 14:05-0500 Body weight 81.65 kg Tello Triplett MD Work Phone: [facility] 02-20-2024 14:05-0500 Diastolic blood pressure 78 mm[Hg] Tello Triplett MD Work Phone: [facility] 02-20-2024 14:05-0500 Heart rate 77 /min Tello Triplett MD Work Phone: [facility] 02-20-2024 14:05-0500 SaO2% (BldA) [Mass fraction] 97 % Tello Triplett MD Work Phone: [facility] 02-20-2024 14:05-0500 Systolic blood pressure 128 mm[Hg] Tello Triplett MD Work Phone: [facility] 05-12-2023 12:57-0500 Body height 154.9 cm Tello Triplett MD Work Phone: [facility] 05-12-2023 12:57-0500 Body mass index (BMI) [Ratio] 34.96 kg/m2 Tello Triplett MD Work Phone: [facility] 05-12-2023 12:57-0500 Body weight 83.92 kg Tello Triplett MD Work Phone: [facility] 05-12-2023 12:57-0500 Diastolic blood pressure 70 mm[Hg] Tello Triplett MD Work Phone: [facility] 05-12-2023 12:57-0500 Heart rate 83 /min Tello Triplett MD Work Phone: [facility] 05-12-2023 12:57-0500 SaO2% (BldA) [Mass fraction] 97 % Tello Triplett MD Work Phone: [facility] 05-12-2023 12:57-0500 Systolic blood pressure 126 mm[Hg] Tello Triplett MD Work Phone: [facility] 09-08-2021 10:40-0400 Body height 156.21 cm Ashutosh Juarez Other [facility] Other 09-08-2021 10:40-0400 Body mass index (BMI) [Ratio] 37.55 kg/m2 Ashutosh Juarez Other [facility] Other 09-08-2021 10:40-0400 Body weight 91.63 kg Ashutosh Juarez Other [facility] Other 07-07-2021 14:00-0400 Body height 156.21 cm Ashutosh Juarez Other [facility] Other 07-07-2021 14:00-0400 Body mass index (BMI) [Ratio] 38.47 kg/m2 Ashutsoh Juarez Other [facility] Other 07-07-2021 14:00-0400 Body weight 93.9 kg Ashutosh Juarez Other [facility] Other 05-14-2021 17:00-0500 Body height 156.21 cm Ashutosh Juarez Other [facility] Other 05-14-2021 17:00-0500 Body mass index (BMI) [Ratio] 38.47 kg/m2 Ashutosh Juarez Other [facility] Other 05-14-2021 17:00-0500 Body weight 93.9 kg Ashutosh Juarez Other [facility] Other 03-26-2021 16:20-0500 Body height 156.21 cm Ashutosh Juarez Other [facility] Other 03-26-2021 16:20-0500 Body mass index (BMI) [Ratio] 38.47 kg/m2 Ashutosh Juarez Other [facility] Other 03-26-2021 16:20-0500 Body weight 93.9 kg Ashutosh Juarez Other [facility] Other Encounters Encounter Date Encounter Type Care Provider Facility Start: 04-26-2024 End: 04-26-2024 ambulatory [facility] Start: 04-23-2024 End: 04-23-2024 Refill Tello Triplett MD Work Phone: [facility] Comment on above: Degeneration of lumb ar or lumbosacral intervertebral disc; Spinal stenosis of lumbar region without neurogenic claudication Start: 04-05-2024 End: 04-05-2024 ambulatory [facility] Start: 03-26-2024 End: 03-26-2024 Refill Tello Triplett MD Work Phone: [facility] Comment on above: Degeneration of lumb ar or lumbosacral intervertebral disc; Spinal stenosis of lumbar region without neurogenic claudication Start: 03-12-2024 End: 03-12-2024 ambulatory SURESH JAIMES Not Available Start: 03-12-2024 End: 03-12-2024 Office outpatient visit 25 minutes Suresh Jaimes NP Work Phone: [facility] Comment on above: Impingement syndrome of right shoulder (Primary Dx); Impingement syndrome of left shoulder; Chronic right shoulder pain; Chronic left shoulder pain Start: 03-12-2024 End: 03-12-2024 Bamboo flowsheet Suresh Jaimes NP Work Phone: [facility] Start: 03-12-2024 End: 03-12-2024 Bamboo flowsheet Suresh Jaimes SAMPLE COORDINATOR Work Phone: [facility] Start: 03-08-2024 End: 03-08-2024 ambulatory [facility] Start: 02-20-2024 End: 02-20-2024 ambulatory TELLO TRIPLETT Not Available Start: 02-20-2024 End: 02-20-2024 Assay of hemosiderin, quant Tello Triplett MD Work Phone: [facility] Start: 02-20-2024 End: 02-20-2024 Bamboo flowsheet Tello Triplett MD Work Phone: [facility] Start: 02-20-2024 End: 02-20-2024 Bamboo flowsheet Tello Triplett MD Work Phone: [facility] Start: 02-20-2024 End: 02-20-2024 Patient encounter procedure Tello Triplett MD Work Phone: [facility] Comment on above: Routine general medi maria victoria examination at health care facility (Primary Dx); ACP (advance care planning); Type 2 diabetes mellitus with other specified complication, without long-term current use of insulin ([facility]); Degeneration of lumbar or lumbosacral intervertebral disc; Spinal stenosis of lumbar region without neurogenic claudication; Mixed hyperlipidemia ([facility]/H[facility]) Start: 02-08-2024 End: 02-08-2024 ambulatory [facility] Start: 02-08-2024 End: 02-08-2024 ambulatory [facility] Start: 01-24-2024 End: 01-24-2024 Refill Tello Triplett MD Work Phone: [facility] Comment on above: Degeneration of lumb ar or lumbosacral intervertebral disc; Spinal stenosis of lumbar region without neurogenic claudication Start: 12-23-2023 End: 12-26-2023 Refill Tello Triplett MD Work Phone: [facility] Comment on above: Degeneration of lumb ar or lumbosacral intervertebral disc; Spinal stenosis of lumbar region without neurogenic claudication Start: 11-30-2023 End: 11-30-2023 Patient encounter procedure Isabelle GIBSON Work Phone: [facility] Comment on above: Hematuria, unspecifi ed type Start: 11-30-2023 End: 11-30-2023 ambulatory TELLO TRIPLETT Not Available Start: 11-14-2023 End: 11-14-2023 ambulatory TELLO TRIPLETT Not Available Start: 10-24-2023 End: 10-24-2023 ambulatory [facility] Start: 09-28-2023 End: 09-28-2023 ambulatory TON RAVEN Not Available Start: 08-29-2023 End: 08-29-2023 ambulatory TON RAVEN Not Available Start: 08-10-2023 End: 08-10-2023 ambulatory TELLO TRIPLETT Not Available Start: 06-07-2023 End: 06-07-2023 ambulatory SURESH JAIMES Not Available Start: 05-24-2023 End: 05-24-2023 ambulatory SURESH Rasheed FIONA Not Available Start: 05-12-2023 Bamboo flowsheet Tello [...] above: Lumbar disc disease with radiculopathy Start: 08-04-2022 End: 08-05-[address] TELLO TRIPLETT Facility: Start: 05-07-2022 End: 05-08-[address] JERROD RUBI . Facility:[facility] Start: 04-20-2022 ambulatory Rick MONTAÑO Facility :[facility] Start: 04-19-2022 End: 04-19-[address] JERROD RUBI . Facility:[facility] Start: 01-12-2022 End: 01-13-[address] ISABELLE ALVARES Facility:[facility] Start: 09-08-2021 End: 09-08-2021 ambulatory Ashutosh Juarez Other [facility] [employer] Other Start: 09-08-2021 Postop follow up vis it related to original px Ashutosh Juarez [facility] Start: 07-07-2021 End: 07-07-2021 ambulatory Ashutosh Juarez Other [facility] Other Start: 07-07-2021 Postop follow up vis it related to original px Ashutosh Juarez [facility] Start: 06-08-2021 Admission to same da y surgery center Ashutosh Juarez [facility] Start: 06-08-2021 End: 06-09-2021 ambulatory Tello Triplett [facility] [employer] Other Start: 06-04-2021 End: 06-04-2021 ambulatory Ashutosh Juarez Facility:[facility] Start: 05-25-2021 End: 05-25-2021 ambulatory Ashutosh Juarez Facility:[facility] Start: 05-14-2021 End: 05-14-2021 ambulatory Ashutosh Juarez Other [facility] Other Start: 05-14-2021 Office outpatient vi sit 40 minutes Ashutosh Juarez [facility] Start: 04-10-2021 End: 04-10-2021 ambulatory Ashutosh Juarez Other [facility] Other Start: 04-10-2021 Telephone encounter Ashutosh Juarez [facility] Start: 03-26-2021 End: 03-26-2021 ambulatory Ashutosh Juarez Other [facility] Other Start: 03-26-2021 Follow-up encounter Ashutosh Juarez [facility] Start: 02-11-2021 End: 02-12-2021 ambulatory Physician Unlisted Facility:[facility] Start: 01-14-2017 Ambulatory KINJAL Pierce (MIKY) [facility] Procedures Date Procedure Procedure Detail Performing Clinician Start: 04-26-2024 Follow-up visit Follow-up ROBINSON PAEZ Start: 03-12-2024 Arthrocentesis aspir &/inj major jt/bursa w/o Suresh T Fiona SAMPLE COORDINATOR Work Phone: Start: 03-12-2024 Arthrocentesis aspir &/inj major jt/bursa w/o Suresh Jaimes NP Work Phone: Start: 02-20-2024 Hemoglobin glycosylated a1c Tello Triplett MD Work Phone: Start: 11-30-2023 Urnls dip stick/tabl et rgnt non-auto w/o micrscp Isabelle Alvares PA Work Phone: Start: 05-13-2023 Mammography Isabelle vaca PA Work Phone: Start: 05-07-2022 Mammography Tello flynn MD Work Phone: Start: 08-02-2019 Echocardiography Start: 02-12-2013 Colonoscopy Tello flynn MD Work Phone: Plan of Treatment Date Care Activity Detail Author Start: 02-07-2026 Glaucoma screening Diabetes: R etinopathy Screening [facility] Start: 12-03-2025 Screening for malignant neoplasm of colon [facility] Start: 02-19-2025 Medicare Annual Wellness (AWV) Medicare Annual Wellness (AWV) [facility] Start: 02-03-2025 Glaucoma screening Diabetes: R etinopathy Screening [facility] Start: 09-04-2024 End: 09-04-2024 Patient encounter procedure 09/04/2024 2:00 PM EDT Office Visit [facility] [address] [place] [address] Ton Wheeler, [address] [address] [facility] Start: 07-16-2024 End: 07-16-2024 Patient encounter procedure 07/16/2024 3:00 PM EDT Office Visit [facility] [address] [place] [address] Suresh Jaimes, KAMALA [address] [place], [place] [id number] [facility] Start: 05-28-2024 End: 05-28-2024 Patient encounter procedure 05/28/2024 1:45 PM EST Office Visit [facility] [address] [place] [address] Tello Triplett MD [address] [place] [address] [facility] Start: 05-22-2024 Hemoglobin A1c measurement Diabetes: Hemoglobin A1C [facility] Start: 05-21-2024 End: 05-21-2024 Patient encounter procedure 05/21/2024 1:45 PM EST Office Visit [facility] [address] [place] [address] Tello Triplett MD [address] [place] [address] [facility] Start: 05-13-2024 Screening for malignant neoplasm of breast Mammogram [facility] Start: 04-05-2024 Urine screening for protein Diabetes: Urine Protein Screening [facility] Start: 02-20-2024 End: 02-20-2024 Patient encounter procedure 02/20/2024 2:00 PM EST Office Visit [facility] [address] [place] [address] Tello Triplett MD [address] [place] [address] [facility] Start: 02-15-2024 End: 02-15-2024 Patient encounter procedure 02/15/2024 1:30 PM EST Office Visit [facility] [address] [place] [address] Tello Triplett MD [address] [place] [address] [facility] Start: 02-08-2024 Medicare Annual Wellness (AWV) Medicare Annual Wellness (AWV) [facility] Start: 11-30-2023 End: 11-29-2024 URINARY TRACT INFECTION (HTRX) URINARY TRACT INFECTION (HTRX) Lab Routine Hematuria, unspecified type Expected: 11/30/2023 (Approximate), Expires: 11/29/2024 [facility] Work Phone: Comment on above: Expected: 11/30/2023 (Approximate), Expires: 11/29/2024 Start: 11-27-2023 Influenza vaccination Influenza Vacc ine (#1) [facility] Start: 11-10-2023 Hemoglobin A1c measurement Diabetes: Hemoglobin A1C [facility] Start: 08-29-2023 End: 08-29-2023 Patient encounter procedure 08/29/2023 2:00 PM EDT Office Visit [facility] [address] [place] [address] Ton Wheeler DO [address] [address] [facility] Start: 08-10-2023 End: 08-10-2023 Patient encounter procedure 08/10/2023 1:15 PM EDT Office Visit [facility] [address] [facility] [address] [place] [address] Tello Triplett MD [address] [facility] [address] [place] [address] [facility] Start: 07-05-2023 Hemoglobin A1c measurement Diabetes: Hemoglobin A1C [facility] Start: 05-12-2023 End: 05-12-2023 Patient encounter procedure [facility] Comment on above: Arrived Start: 05-07-2023 Screening for malignant neoplasm of breast Mammogram [facility] Start: 02-12-2023 Screening for malignant neoplasm of colon Colonoscopy [facility] Start: 1955 Screening for malignant neoplasm of colon [facility] Immunizations Immunization Date Immunization Notes Care Provider Fa cili 12-27-2023 influenza, high dose seasonal, preservative-free Tello Triplett MD Work Phone: [facility] 02-07-2023 RSV, recombinant, pr otein subunit RSVpreF, adjuvant reconstitu, 120mcg/0.5mL, PF (Arexvy) Isabelle GIBSON Work Phone: [facility] 12-28-2022 Influenza, Seasonal, Quadrivalent, Adjuvanted Tello Triplett MD Work Phone: [facility] 12-28-2022 influenza virus vacc ine, unspecified formulation Isabelle GIBSON Work Phone: [facility] 10-25-2022 tetanus toxoid, redu breana diphtheria toxoid, and acellular pertussis vaccine, adsorbed Tello Triplett MD Work Phone: [facility] 08-04-2022 zoster vaccine recombinant Darlene Triplett MD Work Phone: [facility] 04-19-2022 zoster vaccine recombinant Darlene Triplett MD Work Phone: [facility] 02-22-2022 Influenza, High-dose Seasonal, Quadrivalent, Preservative Free Tello Triplett MD Work Phone: [facility] 02-03-2022 Pneumococcal Conjuga te PCV 20 Tello Triplett MD Work Phone: [facility] 02-01-2022 pneumococcal polysaccharide vaccine, 23 valent Tello Triplett MD Work Phone: [facility] 12-16-2020 influenza, injectabl e, quadrivalent, preservative free Tello Triplett MD Work Phone: [facility] Payers Date Payer Category Payer Medicaid [employer] MED[employer]ARE A DVANTAGE [id number] 2022 Medicare [employer] MEDICARE A DVANTAGE A[employer]NA MEDICARE REPLACEMENT [id number] 2022-Present [address] [place] [address] [id number] 2021 Self-pay 2021 Unknown [id number] [id number] 2021 Unknown 1959 Private Health Insurance [id number] 1959 Self-pay [id number] 1956 Unknown [id number] 2.16.840.1.401277.3.579.2. 196 1956 Unknown [id number] 2.16.840.1.227370.3.579.2. 727 1956 Unknown [id number] 2.16.840.1.405510.3.579.2. 727 1956 Unknown [id number] 2.16.840.1.052611.3.579.2. 593 1956 Unknown [id number] 2.16.840.1.031125.3.579.2. 593 1956 Unknown [id number] 2.16.840.1.337553.3.579.2. 593 1956 Unknown [id number] 2.16.840.1.730546.3.579.2. 593 1956 Unknown [id number] 2.16.840.1.190064.3.579.2. 1259 1956 Unknown [id number] 2.16.840.1.007226.3.579.2. 1259 1956 Unknown [id number] 2.16.840.1.916788.3.579.2. 1259 1956 Unknown [id number] 2.16.840.1.137176.3.579.2. 1259 1956 Unknown [id number] 2.16.840.1.844092.3.579.2. 1259 1956 Unknown [id number] 2.16.840.1.679983.3.579.2. 1259 1956 Unknown [id number] 2.16.840.1.310097.3.579.2. 9 1956 Unknown [id number] 2.16.840.1.216546.3.579.2. 1258 1956 Unknown [id number] 2.16.840.1.610005.3.579.2. 1259 1956 Unknown [id number] 2.16.840.1.221697.3.579.2. 1258 1956 Unknown [id number] 2.16.840.1.174517.3.579.2. 1286 1956 Unknown [id number] 2.16.840.1.566027.3.579.2. 1285 1956 Unknown [id number] 2.16.840.1.321945.3.579.2. 1286 1956 Unknown [id number] 2.16.840.1.701650.3.579.2. 1285 1956 Unknown [id number] 2.16.840.1.544897.3.579.2. 6 1956 Unknown [id number] 2.16.840.1.331233.3.579.2. 1286 Unknown [id number] 2.16.840.1.447505.3.579.2. 531 Unknown [id number] 2.16.840.1.039307.3.579.2. 531 Unknown [id number] 2.16.840.1.429476.3.579.2. 531 Social History Date Type Detail Facility Start: 02-07-2023 End: 02-20-2024 Sex Assigned At [facility] [employer] Other Start: 11-02-2022 Tobacco smoking status [facility] Ex-smoker [facility] End: 03-28-2004 History of tobacco use Current smoker [facility] End: 03-28-2004 History of tobacco use Cigarette Smoker [facility] Start: 11-02-2022 Tobacco use and exposure Smokeless tobacco non-user [facility] Start: 02-07-2023 End: 02-20-2024 Alcohol intake Ex-drinker (finding) [facility] Start: 02-07-2023 End: 02-20-2024 History of Social function [facility] Start: 1955 Sex Assigned At Not on file [facility] Clinical Notes 03-26-2021 to 03-26-2024 Telephone Encounter - Cindyjenelle Johns - 03/26/2024 10:00 AM ESTTelephone Encounter - Cindy Johns - 03/26/2024 10:00 AM Brooks Jaimes NP - 03/12/2024 3:00 PM EST Note Date & Type Note Facility 03-26-2024 Telephone encounter Note HYDROcodone-acetaminophen (Bellvue) 10-325 MG tablet Krogers tiffin [facility] 03-26-2024 Miscellaneous Notes HYDROcodone-acetaminophen (Bellvue) 10-325 MG tablet Krogers tiffin documented in this encounter [facility] 03-12-2024 History of Presen t illness Narrative Associated Order(s): L Inj/Asp: R subacromial bursa; L Inj/Asp: L subacromial bursa Post-Procedure Diagnose(s): Impingement syndrome of right shoulder; Impingement syndrome of left shoulder Images from the original note were not included. HISTORY OF PRESENT ILLNESS: EST PT Luis Block is an 68 y.o. @ female. Est pt: last depo inj 05/24/23 with good relief. Pain returned about 3 months ago. LT shoulder pain chronically x over 40 years ago (1981) after falling at home. Recent onset x 02/2023. Pain over anterior and posterior shoulder. Worse with use. Admits clicking. + wake at HS. Limited ROM. Taking hydrocodone, mostly for back. Using lidocaine patches. Denies N/T. Prior tx: ice, has tried multiple NSAIDS and muscle relaxers over the years, xr noms 10/18/19 left shoulder, depo injection 04/07/22, XR [facility] 11/23/22, depo injection 11/23/22, depo injection 05/24/23 RT handed. RT shoulder pain x 1 year (2022). Last depo injx 06/07/23, good relief . Pain returned about 3 months ago. Anterior and posterior that travels over top of shoulder. Denies radiation. Taking hydrocodone, mostly for back. Using lidocaine patches. + wake at HS. + clicking Limited ROM. Denies N/T, swelling. Uses lidocaine patches. Prior tx: hydrocodone, lidocaine patches, depo injx 06/07/23 ALLERGIES: No Known Allergies HOME MEDICATIONS: Current Outpatient Medications Medication Instructions alendronate (FOSAMAX) 70 mg, Oral, Every 7 days, Take in the morning with a full glass of water, on an empty stomach, and do not take anything else by mouth or lie down for the next 30 min. atorvastatin (Lipitor) 20 MG tablet TAKE 1 TABLET DAILY Calcium-Vitamin D-Vitamin K 500-100-40 MG-UNT-MCG chewable tablet 500 mg, 2 times daily chlorhexidine (Peridex) 0.12 % solution RINSE MOUTH WITH 15 MLS for 30 SECONDS every morning and evening ... (REFER TO PRESCRIPTION NOTES). cycloSPORINE (Restasis) 0.05 % ophthalmic emulsion 1 drop, 2 times daily FLUoxetine (PROzac) 20 MG capsule TAKE 2 CAPSULES DAILY HYDROcodone-acetaminophen (Bellvue) 10-325 MG tablet 1 tablet, Oral, Every 6 hours PRN ibuprofen 600 MG tablet 1 tablet, Every 6 hours nitroglycerin (NITROSTAT) 0.4 mg, Every 5 min PRN omega-3 acid ethyl esters (LOVAZA) 2 g, 2 times daily pantoprazole (ProtoNix) 40 MG EC tablet TAKE 1 TABLET DAILY potassium chloride CR (Klor-Con) 10 MEQ ER tablet 10 mEq, Oral, 2 times daily sodium chloride (NS) 0.9 % flush 10 mL, Daily RT tiZANidine (ZANAFLEX) 4 mg, 2 times daily topiramate 50 MG tablet 1 tablet, Oral, 2 times daily PHYSICAL EXAM: Shoulder Musculoskeletal Exam Inspection Right Right shoulder inspection is normal. Ecchymosis: none Peripheral edema: none Atrophy: none Masses: none Left Left shoulder inspection is normal. Ecchymosis: none Peripheral edema: none Atrophy: none Masses: none Palpation Right Crepitus: no crepitus Increased warmth: none Tenderness: present Anterior shoulder: moderate Lateral arm: moderate Left Crepitus: no crepitus Increased warmth: none Tenderness: none Range of Motion Right Right shoulder range of motion is normal. Active ROM: pain. Passive ROM: pain. Right shoulder active abduction: + pain passing 90 degrees. Left Active ROM: pain. Passive ROM: pain. Active forward elevation: 140. Shoulder active abduction: 90. Strength Right Abduction: 4/5. Left Abduction: 4-/5. Neurovascular Right Radial pulse: normal and 2+ Capillary refill: <3 sec Axillary nerve sensory distribution: normal Left Radial pulse: normal and 2+ Capillary refill: <3 sec Axillary nerve sensory distribution: normal Scapula Right Right shoulder scapula is normal. Position: normal Winging: none Left Left shoulder scapula is normal. Position: normal Winging: none Special Tests Right Rotator Cuff Signs Neer's test: positive Harvey test: positive Painful arc test: positive Biceps/lana Signs Speed's test: negative Left Rotator Cuff Signs Neer's test: positive Harvey test: positive Painful arc test: positive Biceps/lana Signs Speed's test: negative General Constitutional: appears stated age Neurological: alert and oriented x3 Vitals: There is no height or weight on file to calculate BMI. Tobacco Use: Medium Risk (03/08/2024) Received from [facility] Patient History Smoking Tobacco Use: Former Smokeless Tobacco Use: Never Passive Exposure: Not on file Alcohol Use: Not on file IMAGING: L Inj/Asp: R subacromial bursa on 03/12/2024 8:23 PM Indications: pain Details: 20 G needle, posterior approach Medications: 40 mg methylPREDNISolone acetate 40 MG/ML Outcome: tolerated well, no immediate complications Site cleaned with isopropyl alcohol. Procedure, treatment alternatives, risks and benefits explained, specific risks discussed. Consent was given by the patient. L Inj/Asp: L subacromial bursa on 03/12/2024 8:23 PM Indications: pain Details: 20 G needle, posterior approach Medications: 40 mg methylPREDNISolone acetate 40 MG/ML Outcome: tolerated well, no immediate complications Site cleaned with isopropyl alcohol Procedure, treatment alternatives, risks and benefits explained, specific risks discussed. Consent was given by the patient. Orders Placed This Encounter Procedures L Inj/Asp This order was created via procedure documentation L Inj/Asp This order was created via procedure documentation ASSESSMENT: ICD-10-CM 1. Impingement syndrome of right shoulder M75.41 2. Impingement syndrome of left shoulder M75.42 3. Chronic right shoulder pain M25.511 G89.29 4. Chronic left shoulder pain M25.512 G89.29 PLAN: I reviewed xray findings with the patient and discussed treatment options, answered questions. I discussed with the patient the option of an injection in SA space in both shoulders. I advised the patient of risks associated with an injection including a reaction to medication, infection, failure to improve and possible worsening. The patient demonstrated understanding. Patient requesting injection. Skin Cleansed with alcohol swab. Utilizing aseptic technique patient given 40mg Depomedrol was injected in both shoulders. Patient tolerated this well. Neurovasc intact s/p injection. Post injection care instructions discussed. She will follow up as needed. Questions answered in laymen terms at the bedside. The diagnosis, home exercise plan and any ongoing restrictions/ recommendations reviewed. If unable to be reached in office, I recommend evaluation at nearest Emergency Room if any symptoms worsened or new symptoms develop for requiring urgent evaluation. documented in this encounter [facility] 02-20-2024 History of Presen t illness Narrative Images from the original note were not included. HPI Med Refill Additional comments: Hydrocodone-- kroger tiffin supplement questions Additional comments: Pt was wondering if there is anything she should be taking to help promote brain health Last edited by Tonya Phillip LPN on 02/20/2024 2:19 PM. Subjective : Chief Complaint: Luis Block is an 68 y.o. female here for an annual wellness visit. I have reviewed and reconciled the history and medication list with the patient today. Current Outpatient Medications Medication Sig Dispense Refill alendronate (Fosamax) 70 MG tablet Take 1 tablet (70 mg) by mouth every 7 (seven) days Take in the morning with a full glass of water, on an empty stomach, and do not take anything else by mouth or lie down for the next 30 min. 4 tablet 11 atorvastatin (Lipitor) 20 MG tablet TAKE 1 TABLET DAILY 100 tablet 3 Calcium-Vitamin D-Vitamin K 500-100-40 MG-UNT-MCG chewable tablet Chew 500 mg in the morning and 500 mg in the evening. chlorhexidine (Peridex) 0.12 % solution RINSE MOUTH WITH 15 MLS for 30 SECONDS every morning and evening ... (REFER TO PRESCRIPTION NOTES). cycloSPORINE (Restasis) 0.05 % ophthalmic emulsion Administer 1 drop into affected eye(s) in the morning and 1 drop in the evening. FLUoxetine (PROzac) 20 MG capsule TAKE 2 CAPSULES DAILY 200 capsule 3 ibuprofen 600 MG tablet Take 1 tablet by mouth every 6 (six) hours nitroglycerin (Nitrostat) 0.[address] 0.4 mg under the tongue every 5 (five) minutes if needed for chest pain. omega-3 acid ethyl esters (Lovaza) 1 g capsule Take 2 g by mouth in the morning and 2 g in the evening. pantoprazole (ProtoNix) 40 MG EC tablet TAKE 1 TABLET DAILY 90 tablet 3 potassium chloride CR (Klor-Con) 10 MEQ ER tablet Take 1 tablet (10 mEq) by mouth in the morning and 1 tablet (10 mEq) before bedtime. 90 tablet 2 sodium chloride (NS) 0.9 % flush Infuse 10 mL into a venous catheter in the morning. tiZANidine (Zanaflex) 4 MG tablet Take 4 mg by mouth in the morning and 4 mg before bedtime. topiramate 50 MG tablet TAKE 1 TABLET TWICE A DAY 180 tablet 3 HYDROcodone-acetaminophen (Bellvue) 10-325 MG tablet Take 1 tablet by mouth every 6 (six) hours if needed for severe pain 120 tablet 0 No current facility-administered medications for this visit. Review of Systems List of current healthcare providers: Patient Care Team: Tello Triplett MD as PCP - General (Internal Medicine) Tello Triplett MD as PCP - [employer] Annual Visit Over the past 2 weeks, how often have you been bothered by any of the following problems? Little interest or pleasure in doing things: Not at all Feeling down, depressed, or hopeless: Not at all Patient Health Questionnaire-2 Score: 0 Dann Fall Risk History of Falling, Immediate or Within 3 Months: No Secondary Diagnosis: No Ambulatory Aid: Walks without aid/bedrest/nurse assist Health Risk Assessment Form Do you need help eating, bathing, using the toilet, dressing, or getting around your home?: No Can you prepare your own meals?: Yes Can you do your own housework without help?: Yes Can you shop for groceries or clothes without help?: Yes Do you exercise for about 20 minutes 3 or more days a week?: Yes How confident are you that you can control and manage most of your health problems?: Very confident Can you mange your money, credit cards and accounts, pay bills and taxes?: Yes Cognitive Screening Three Word Registration: Apple, Watch, Irene Clock Drawing: Normal Clock - 2 Three Word Recall: All 3 words correct - 3 Total Score (0-5 Points): 5 Pain Assessment Pain Score: 7 Advance Care Planning Do you have a living will?: No Do you have a medical power of disability attorney?: No Objective : BP 128/78 Pulse 77 Ht 5' 1 Wt 180 lb LMP (LMP Unknown) SpO2 97% BMI 34.01 kg/m No results found. Physical Exam Constitutional: General: She is not [...] breath sounds. No wheezing, rhonchi or rales. Skin: General: Skin is warm and dry. Neurological: General: No focal deficit present. Mental Status: She is alert and oriented to person, place, and time. Psychiatric: Mood and Affect: Mood normal. Behavior: Behavior normal. Office Visit on 02/20/2024 Component Date Value Ref Range Status Hemoglobin A1C 02/20/2024 5.9 Final Assessment/Plan : The following health maintenance schedule was reviewed with the patient and provided in printed form in the after visit summary: Health Maintenance Topic Date Due Medicare Annual Wellness (AWV) 02/08/2024 Diabetes: Urine Protein Screening 04/05/2024 Mammogram 05/13/2024 Diabetes: Hemoglobin A1C 05/22/2024 Colorectal Cancer Screening 12/03/2025 Diabetes: Retinopathy Screening 02/07/2026 Influenza Vaccine Completed Pneumococcal Vaccine: 65+ Years Completed Cervical Cancer Screening Discontinued Advance Care Planning Assessment/Plan Diagnoses and all orders for this visit: Routine general medical examination at health care facility ACP (advance care planning) Type 2 diabetes mellitus with other specified complication, without long-term current use of insulin ([facility]) - POCT Glycated hemoglobin, total Degeneration of lumbar or lumbosacral intervertebral disc - HYDROcodone-acetaminophen ([place]) 10-325 MG tablet; Take 1 tablet by mouth every 6 (six) hours if needed for severe pain Spinal stenosis of lumbar region without neurogenic claudication - HYDROcodone-acetaminophen ([place]) 10-325 MG tablet; Take 1 tablet by mouth every 6 (six) hours if needed for severe pain Mixed hyperlipidemia ([facility]) Follow up in about 3 months (around 05/22/2024) for Routine F/U, Controlled Med Review, Perform Labwork. Orders Placed This Encounter Procedures POCT Glycated hemoglobin, total Electronically signed by Tello Triplett MD on February 20, 2024 documented in this encounter [facility] 01-24-2024 Telephone encounter Note OARRS reviewed, Rx sent into patient's pharmacy. [facility] 01-24-2024 Miscellaneous Notes OARRS reviewed, Rx sent into patient's pharmacy. HYDROcodone-acetaminophen ([facility]) 10-325 MG tablet to [facility] in [place] documented in this encounter [facility] 01-24-2024 Telephone encounter Note HYDROcodone-acetaminophen ([facility]) 10-325 MG tablet to [facility] in [place] [facility] 12-23-2023 Telephone encounter Note [place] sent to [facility] in [place] [facility] 12-23-2023 Miscellaneous Notes Bell[place] sent to [facility] in [place] documented in this encounter [facility] 11-30-2023 History of Presen t illness Narrative Pt was here for a urine sample , pt stated this started two days ago with burning urgency frequency She was pos for blood and leuko also sent out for culture documented in this encounter [facility] 05-12-2023 History of Presen t illness Narrative [...] 2 CAPSULES DAILY 180 capsule 3 HYDROcodone-acetaminophen ([facility]) 10-325 MG tablet Take 1 tablet by [...] A DAY 180 tablet 3 [DISCONTINUED] HYDROcodone-acetaminophen ([place]) 10-325 MG tablet Take 1 tablet by [...] complication, without long-term current use of insulin ([facility]) 02/07/2023 Umbilical hernia Past Surgical History: Procedure Laterality Date APPENDECTOMY BREAST SURGERY REDUCTION CHOLECYSTECTOMY GASTRIC BYPASS 2018 ANNE EN Y HERNIA REPAIR SEPTOPLASTY SINUS SURGERY 2017 [facility] SPINE SURGERY 2021 DR JUAREZ TUBAL LIGATION [...] of diabetes for children. HbA1c performed on Gwendolyn platform. Effective 03/15/23 a change in test [...] factors. LDL-C is now calculated using the Jossie calculation, which is a validated novel method providing better accuracy than the Friedewald equation in the estimation of LDL-C. Quan HERRERA et al. ANTHONY. 2013;310(19): 2688-9805 (http://education.Helium .com/faq/ECM708) CHOL/HDLC RATIO 04/05/2023 3.3 <5.0 (calc) Final [...] a test for HCV RNA (test code 29630) is suggested. For additional information please refer to http://education.Hiperos/faq/EUN81x3 (This link is being provided for informational/ [...] Controlled Med Review. documented in this encounter [facility] 05-11-2023 Telephone encounter Note Already sent [facility] 02-14-2024 Miscellaneous Notes Already sent documented in this encounter [facility] 05-11-2023 Telephone encounter Note OARRS reviewed, Rx sent into patient's pharmacy. [facility] 05-11-2023 Miscellaneous Notes OARRS reviewed, Rx sent into patient's pharmacy. documented in this encounter [facility] 01-13-2022 Note EXAMINATION: XR CHES T 2 [...] by: DARLYN CLEMONS Date: 2022-01-13 06:52 [facility] 09-08-2021 Evaluation note Encounter Date Diagnosis Assessment Notes Aug, Spinal stenosis, lumbar region with neurogenic claudication (ICD-10 - M48.062) Patient is now 3 months status post lumbar decompression and is feeling very good. She has no leg pain, her back feels good, she is happy with her operative result. I will see her again in the future on an as-needed basis. [facility] Other 04-12-2022 Evaluation note* Encounter Date Diagnosis [...] for her to return to work mid-July [facility] Other 02-17-2022 Evaluation note* Encounter Date Diagnosis [...] patient desires to proceed with surgical intervention. [facility] Other 01-14-2022 Evaluation note* Encounter Date Diagnosis Assessment Notes Treatment Notes Treatment Clinical Notes Mar, Spondylolisthesis of lumbar region (ICD-10 - M43.16) Mar, Post menopausal synd adrianne (ICD-10 - Z78.0) [facility] Other 12-30-2021 Evaluation note* Encounter Date Diagnosis Assessment Notes Treatment Notes Treatment Clinical Notes Feb, Other The patient did not have an MRI with her which was done recently for me to evaluate. Given the fact that she is feeling well with no MRI I believe that we should not have an office visit we will reschedule this visit for another time [facility] Other evalgzylio note* Diagnosis Lumbar disc disease with radiculopathy [facility] Diagnosis Lumbar disc disease with radiculopathy [facility]* Diagnosis Benign essential hypertension (CMS/HCC)- Primary Essential hypertension, benign Spinal stenosis of lumbar region without neurogenic claudication Degeneration of lumbar or lumbosacral intervertebral disc Rotator cuff tendinitis, right [facility] Diagnosis Degeneration of lumbar or lumbosacral intervertebral disc Spinal stenosis of lumbar region without neurogenic claudication [facility] Diagnosis Routine general medical examination at health care facility- Primary Routine general medical examination at a health care facility ACP (advance care planning) Other specified counseling Type 2 diabetes mellitus with other specified complication, without long-term current use of insulin (CMS/HCC) Degeneration of lumbar or lumbosacral intervertebral disc Spinal stenosis of lumbar region without neurogenic claudication Mixed hyperlipidemia ([facility]) Mixed hyperlipidemia [facility] Diagnosis Impingement syndrome of right shoulder- Primary Impingement syndrome of left shoulder Chronic right shoulder pain Pain in joint, shoulder region Chronic left shoulder pain Pain in joint, shoulder region [facility] Diagnosis Hematuria, unspecified type [facility] Diagnosis Degeneration of lumbar or lumbosacral intervertebral disc Spinal stenosis of lumbar region without neurogenic claudication [facility] Diagnosis Degeneration of lumbar or lumbosacral intervertebral disc Spinal stenosis of lumbar region without neurogenic claudication [facility] Diagnosis Degeneration of lumbar or lumbosacral intervertebral disc Spinal stenosis of lumbar region without neurogenic claudication [facility] Narrative - Reported* Type Description Date Medical History Esophageal reflux Medical History diabetes mallitus Surgical History hysteroscopy Surgical History appendectomy Surgical History D&C Surgical History tubal ligation Surgical History cholecystectomy Surgical History Gastric Sleeve Hospitalization History See Above [facility] Other History general Narrative - Reported* Type Description Date Medical History Esophageal reflux Medical History diabetes mallitus Surgical History hysteroscopy Surgical History appendectomy Surgical History D&C Surgical History tubal ligation Surgical History cholecystectomy Surgical History Gastric Sleeve Surgical History Lumbar Decompression-Doctor Bra un Hospitalization History See Above [facility] Other reason for referral (narrative)* Consultation (Routine) - Pending Review Specialty Diagnoses / Procedures Referred By Contact Referred To Contact Orthopaedic Surgery Diagnoses Rotator cuff tendinitis, right Tello Triplett MD [address] [facility] [address] [place] [address] Oriana Wright NP [address] [facility] [address] [place] [address] Referral ID Status Reason Start Date Expiration Date Visits Requested Visits Authorized [id number] Pending Review Specialty Services Required 05/12/2023 11/08/2023 [...] By Contac t Referred To Contact Diagnoses Degeneration of lumbar or lumbosacral intervertebral disc Spinal stenosis of lumbar region without neurogenic claudication Tello Triplett MD [address] [facility] [address] [place] [address] Referral ID Status Reason Start Date Expiration Date Visits Re quested Visits Authorized [id number] Closed 1 1 Specialty Diagnoses / Procedures Referred By Contac t Referred To Contact Diagnoses Lumbar disc disease with radiculopathy Isabelle Alvares PA [address] [facility] [address] [place] [address] Referral ID Status Reason Start Date Expiration Date Visits Re quested Visits Authorized [id number] Closed 1 1 Additional Source Comments INFORMATION SOURCE (unrecogn ized section and content) DATE CREATED AUTHOR 09/20/2017 [facility] DATE CREATED AUTHOR AUTHOR'S ORGANIZ ATION 08/10/2019 [facility] DATE CREATED AUTHOR AUTHOR'S ORGANIZ ATION 02/12/2021 [facility] DATE CREATED AUTHOR AUTHOR'S ORGANIZ ATION 05/01/2022 [facility] DATE CREATED AUTHOR AUTHOR'S ORGANIZ ATION 05/14/2022 [facility] DATE CREATED AUTHOR AUTHOR'S ORGANIZ ATION 08/11/2022 [facility] DATE CREATED AUTHOR AUTHOR'S ORGANIZ ATION 03/14/2024 [facility] EPIC DATE CREATED AUTHOR AUTHOR'S ORGANIZ ATION 04/29/2024 [facility] REASON FOR VISIT (unrecogniz ed section and content) Reason Onset Date Comments Med Refill 05/11/2023 HYDROCODONE TO Kaela SHARMA IN [place] Reason Onset Date Comments Med Refill 05/10/2023 Hydorocodone - Kaela miller [place] Reason Comments Follow-up Pain med Hypertension Results labs Shoulder Pain Pt states she has mendoza d ongoing left shoulder pain over the last few months her right shoulder has really started bothering her she has seen ortho for left shoulder in past Reason Comments Medicare Annual Wellness Visit Subsequen t Med Refill Hydrocodone-- [facility] [place] supplement questions Pt was wondering if there is anything she should be taking to help promote brain health Reason Comments Pain Reason Onset Date Comments Med Refill 12/23/2023 Reason Onset Date Comments Med Refill 03/26/2024 Reason Onset Date Comments Med Refill 04/23/2024 Care Teams (unrecognized sec tion and content) [facility] Relationship Specialty Start Date End Date Tello Triplett MD [address] [facility] [address] [place] [id number] PCP - General Internal Medicine 08/03/22 Tello Triplett MD [address] [facility] [address] [place] [id number] PCP - [employer] 10/26/22 [facility] Relationship Specialty Start Date End Date Tello Triplett MD [address] [facility] [address] [place] [address] PCP - General Internal Medicine 08/03/22 Tello Triplett MD [address] [facility] [address] [place] [address] PCP - [employer] 10/26/22 [facility] Relationship Specialty Start Date End Date Tello Triplett MD [address] [facility] [address] [place] [address] PCP - General Internal Medicine 08/03/22 Tello Triplett MD [address] [facility] [address] [place] [address] PCP - [employer] 10/26/22 [facility] Relationship Specialty Start Date End Date Tello Triplett MD [address] [facility] [address] [place] [address] PCP - General Internal Medicine 08/03/22 Tello Triplett MD [address] [facility] [address] [place] [address] PCP - [employer] 10/26/22 [facility] Relationship Specialty Start Date End Date Tello Triplett MD [address] [facility] [address] [place] [address] PCP - [employer] 12/26/21 Tello Triplett MD [address] [facility] [address] [place] [address] PCP - General Internal Medicine 08/03/22 [facility] Relationship Specialty Start Date End Date Tello Triplett MD [address] [facility] [address] [place] [address] PCP - [employer] 12/26/21 Tello Triplett MD [address] [facility] [address] [place] [address] PCP - General Internal Medicine 08/03/22 [facility] Relationship Specialty Start Date End Date Tello Triplett MD [address] [facility] [address] [place] [address] PCP - [employer] 12/26/21 Tello Triplett MD [address] [facility] [address] [place] [address] PCP - General Internal Medicine 08/03/22 [facility] Relationship Specialty Start Date End Date Tello Triplett MD [address] [facility] [address] [place] [address] PCP - [employer] 12/26/21 Tello Triplett MD [address] [facility] [address] [place] [address] PCP - General Internal Medicine 08/03/22 [facility] Relationship Specialty Start Date End Date Tello Triplett MD [address] [facility] [address] [place] [address] PCP - [employer] 12/26/21 Tello Triplett MD [address] [facility] [address] [place] [address] PCP - General Internal Medicine 08/03/22 [facility] Relationship Specialty Start Date End Date Tello Triplett MD [address] [facility] [address] [place] [address] PCP - [employer] 12/26/21 Tello Triplett MD [address] [facility] [address] [place] [address] PCP - General Internal Medicine 08/03/22 [facility] Relationship Specialty Start Date End Date Tello Triplett MD [address] [facility] [address] [place] [address] PCP - Aet 12/26/21 Tello Triplett MD [address] [facility] [address] [place] [address] PCP - General Internal Medicine 08/03/22 [facility] Relationship Specialty Start Date End Date Tello Triplett MD [address] [facility] [address] [place] [address] PCP - Aet 12/26/21 Tello Triplett MD [address] [facility] [address] [place] [address] PCP - General Internal Medicine 08/03/22 FOR RECORDS PERTAINING TO PATIENTS WHO ARE [...] BE BASED ON THE PRIMARY CLINICAL RECORDS. [employer] [place] [facility]. provides no warranty or guarantee of the accuracy or completeness of information in this document.
== END 2024-05-22 11:33 | disposition home or self-care (01) ==
LOC: MAMMO 11:32
PROVIDERS: PCP Internal Medicine; Visit Provider Obstetrics & Gynecology
DX: Z12.31 Encounter for screening mammogram for malignant neoplasm of breast (principal); Z80.52 Family history of malignant neoplasm of bladder; Z80.7 Family history of other malignant neoplasms of lymphoid, hematopoietic and related tissues
CPT/HCPCS: 77063; 77067

== ENCOUNTER 2024-08-27 13:54 | Outpatient (OUT) | payer MEDICARE, SELFPAY ==
--- NOTE | 2024-08-27 14:17 | XR_ITS ---
The [address] [address] Patient Name: LUIS CLEVELAND MRN: [id number] date: 1955 Sex: F Assigned Patient Location: [facility] Current Patient Location: [facility] Accession/Order Number: [id number] Exam Date: 08/27/2024 14:54 Report Date: 08/27/2024 14:55 At the request of: JOHN CARMEN Procedure: XR lumbar spine 2-3V 3 views Lumbar Spine HISTORY: Acute low back pain. Fell 2 weeks ago. COMPARISON: MRI lumbar spine 01/07/2020 POSTSURGICAL CHANGES: None BONY ALIGNMENT: Stable mild scoliosis HYPERMOBILITY:No bending imaging. LISTHESIS:Similar mild degenerative listhesis FRACTURE: None DEGENERATIVE CHANGES: Similar spondylosis greatest at the L3-4 level. Extensive lower lumbar hypertrophic facet changes. SOFT TISSUES: Unremarkable BONY MINERALIZATION:Diffuse osteopenia XR/XR lumbar spine 2-3V IMPRESSION: No acute compression fracture. Similar alignment and degenerative change. Impression dictated by: Isaias Mercado M.D. 08/27/2024 2:55 PM Dictation Location: [place] [address] Electronically authenticated by: [id number] Date: 08/27/2024 14:55
== END 2024-08-27 13:55 | disposition home or self-care (01) ==
LOC: RAD 13:58
PROVIDERS: PCP Internal Medicine; Visit Provider Internal Medicine
DX: M54.50 Low back pain, unspecified (principal); M51.369 Other intervertebral disc degeneration, lumbar region without mention of lumbar back pain or lower extremity pain
CPT/HCPCS: 72100

== ENCOUNTER 2024-09-04 19:17 | Outpatient (REF) | payer MEDICARE, SELFPAY ==
[2024-09-08 07:08] LABS: Age Gdln ACOG Testing Note (.); Pap IG (Image Guided) Note (.)
== END 2024-09-04 19:18 | disposition home or self-care (01) ==
LOC: LAB 19:17
PROVIDERS: PCP Internal Medicine; Visit Provider Obstetrics & Gynecology
DX: Z01.419 Encounter for gynecological examination (general) (routine) without abnormal findings (principal)
CPT/HCPCS: 88175

== ENCOUNTER 2024-12-03 14:41 | Outpatient (OUT) | payer MEDICARE, SELFPAY ==
[2024-12-03 15:17] LABS: SARS-CoV-2 Ag NEGATIVE (NEGATIVE)
[2024-12-03 15:27] LABS: Hematocrit 38.5 % (36.0-48.0); Hemoglobin 12.6 g/dL (12.0-16.0); Immature Granulocytes Abs Auto 0.12 10^3/uL (0.00-0.03); Immature Granulocytes Pct Auto 1.2 % (0.0-0.5); Lymphocytes Absolute Auto 2.0 10^3/uL (1.2-3.8); Mean Corpuscular HGB Conc 32.7 g/dL (29.9-35.2); Mean Corpuscular Hemoglobin 29.6 pg (26.7-34.0); Mean Corpuscular Volume 90.4 fL (81.0-99.0); Platelet Count 286 10^3/uL (150-450); Red Blood Count 4.26 10^6/uL (4.20-5.40); White Blood Count 10.2 10^3/uL (4.0-11.0)
[2024-12-03 15:52] LABS: Alanine Aminotransferase 85 U/L (14-59); Albumin Globulin Ratio 0.9; Albumin Level 3.3 g/dL (3.4-5.0); Alkaline Phosphatase 89 U/L (46-116); Anion Gap 13.3; Aspartate Amino Transferase 41 U/L (15-37); Blood Urea Nitrogen 21.0 mg/dL (7.0-18.0); Calcium 9.0 mg/dL (8.5-10.1); Carbon Dioxide 24.9 mmol/L (21.0-32.0); Chloride 111 mmol/L (98-107); Estimated GFR (African America >60 (>=60 mL/min/1.73m^2); Estimated GFR (Non-African Ame >60 (>=60 mL/min/1.73m^2); Globulin 3.8 g/dL; Glucose 76 mg/dL (74-106); Potassium 4.2 mmol/L (3.5-5.1); Sodium 145 mmol/L (136-145); Thyroid Stimulating Hormone 0.886 uIU/mL (0.358-3.740); Total Protein 7.1 g/dL (6.4-8.2)
== END 2024-12-03 14:42 | disposition home or self-care (01) ==
PROVIDERS: PCP Internal Medicine; Visit Provider Internal Medicine
DX: J06.9 Acute upper respiratory infection, unspecified (principal); R63.4 Abnormal weight loss
CPT/HCPCS: 36415; 80053; 84439; 84443; 85025; 87811